=== PATIENT | female | born 1990 | race Two or more races ===

== ENCOUNTER 2020-07-03 20:29 | Inpatient (IN) | payer BC, MEDICAID ==
[~2020-07-03] VITALS: Ht 165.1 cm; Wt 81.2 kg
[~2020-07-03 20:29] MED LIST: CLIN300C8 PO; IBUP800T27 PO
[2020-07-03 21:07] LABS: Eosinophils # (auto) 0.1 10 ^3/uL (0-0.8); Eosinophils % (auto) 0.5 % (0.0-7.0); Mean Corpuscular Hemoglobin 26.5 pg (28.0-32.0); Mean Corpuscular Hgb Conc. 33.5 g/dL (32.0-36.0); Neutrophils # (auto) 11.9 10 ^3/uL (1.6-8.6); Red Cell Distribution Width 12.7 % (11.8-14.3)
[2020-07-03 21:08] LABS: Basophils # (auto) 0.1 10 ^3/uL (0-0.2); Basophils % (auto) 0.4 % (0.0-2.0); Hematocrit 32.3 % (36.0-46.0); Hemoglobin 10.8 g/dL (12.2-16.2); Lymphocytes # (auto) 2.3 10 ^3/uL (0.4-5.4); Lymphocytes % (auto) 15.2 % (10.0-50.0); Mean Corpuscular Volume 79.1 fL (80.0-100.0); Monocytes # (auto) 0.9 10 ^3/uL (0-1.3); Monocytes % (auto) 5.7 % (0.0-12.0); Neutrophils % (auto) 78.2 % (37.0-80.0); Platelet Count (auto) 429 10^3/uL (140-450); Red Blood Cells 4.08 10^6/uL (4.0-5.20); White Blood Cell 15.2 10^3/uL (4.4-10.8)
[2020-07-03 21:25] LABS: Albumin 2.8 g/dL (3.4-5.0); Calcium 9.3 mg/dL (8.5-10.1)
[2020-07-03 21:28] LABS: BUN/Creatinine Ratio 27.3; Bilirubin, Total 0.7 mg/dL (0.2-1.0); Total Protein 7.9 g/dL (6.4-8.2)
[2020-07-03] MEDS ORDERED: cefTRIAXone 1GM/50ML D5W 50 ML IV ONE (23:30)
[2020-07-03] MEDS ORDERED: CLINDAMYCIN 600MG IV 50 ML IV ONE (23:30)
[2020-07-03] MEDS ORDERED: SODIUM CHLORIDE 0.9% 1,000 ML IV ONE (23:30)
[2020-07-04] MEDS ORDERED: HYDROcodone-ACET 5/325MG TAB PO PRN (00:45)
[2020-07-04] MEDS ORDERED: ONDANSETRON HCL 4 MG/2 ML VIAL IV PRN (00:45)
[2020-07-04] MEDS ORDERED: TEMAZEPAM 15 MG CAP PO PRN (00:45)
[2020-07-04] MEDS ORDERED: DEXTROSE (50%) 50ML SYRG IV PRN ×2 (00:45→13:00)
[2020-07-04 04:02] VITALS: BP 118/74
[2020-07-04 05:00] VITALS: BP 118/74
[2020-07-04] MEDS: ACCU-CHEK COMFORT CURVE STRIP VI SCH ×4 (05:36→23:14)
[2020-07-04] MEDS: CLINDAMYCIN 600MG IV 50 ML IV SCH ×3 (05:36→22:06)
[2020-07-04] MEDS: InsuLIN REG 1unit/0.01ml Soln (100units/ml) SC SCH ×4 (05:38→23:14)
[2020-07-04] MEDS: cefTRIAXone 1GM/50ML D5W 50 ML IV SCH (08:33)
[2020-07-04 09:00] VITALS: BP 111/61
[2020-07-04] MEDS ORDERED: FAMOTIDINE 20 MG TAB PO SCH (10:00)
[2020-07-04 13:00] VITALS: BP 127/68
[2020-07-04] MEDS ORDERED: INSULIN LANTUS (GLARGINE) 1 /0.01ml (100units/ml) SC ONE (13:00)
[2020-07-04 17:00] VITALS: BP 115/66
[2020-07-04 22:00] VITALS: BP 127/73
[2020-07-04] MEDS: ACETAMINOPHEN 325 MG TAB PO PRN (22:06)
[2020-07-04] MEDS: INSULIN LANTUS (GLARGINE) 1 /0.01ml (100units/ml) SC SCH (23:13)
[2020-07-05 05:00] VITALS: BP 105/56
[2020-07-05 05:21] LABS: Eosinophils # (auto) 0.1 10 ^3/uL (0-0.8); Monocytes # (auto) 1.2 10 ^3/uL (0-1.3); Neutrophils # (auto) 11.7 10 ^3/uL (1.6-8.6)
[2020-07-05 05:24] LABS: Basophils # (auto) 0.1 10 ^3/uL (0-0.2); Basophils % (auto) 0.4 % (0.0-2.0); Eosinophils % (auto) 0.8 % (0.0-7.0); Hematocrit 27.6 % (36.0-46.0); Hemoglobin 9.3 g/dL (12.2-16.2); Lymphocytes # (auto) 2.6 10 ^3/uL (0.4-5.4); Lymphocytes % (auto) 16.5 % (10.0-50.0); Mean Corpuscular Hemoglobin 26.7 pg (28.0-32.0); Mean Corpuscular Hgb Conc. 33.8 g/dL (32.0-36.0); Monocytes % (auto) 7.8 % (0.0-12.0); Neutrophils % (auto) 74.5 % (37.0-80.0); Platelet Count (auto) 352 10^3/uL (140-450); Red Cell Distribution Width 12.6 % (11.8-14.3); White Blood Cell 15.7 10^3/uL (4.4-10.8)
[2020-07-05] MEDS: ACCU-CHEK COMFORT CURVE STRIP VI SCH ×4 (05:31→23:12)
[2020-07-05] MEDS: CLINDAMYCIN 600MG IV 50 ML IV SCH ×3 (05:31→21:41)
[2020-07-05] MEDS: InsuLIN REG 1unit/0.01ml Soln (100units/ml) SC SCH ×4 (05:32→23:12)
[2020-07-05 06:01] LABS: BUN/Creatinine Ratio 26.9; Calcium 8.3 mg/dL (8.5-10.1); Potassium 3.7 mmol/L (3.5-5.1)
[2020-07-05 09:00] VITALS: BP 98/50
[2020-07-05] MEDS: cefTRIAXone 1GM/50ML D5W 50 ML IV SCH (09:16)
[2020-07-05] MEDS: INSULIN LANTUS (GLARGINE) 1 /0.01ml (100units/ml) SC SCH ×2 (09:49→23:02)
[2020-07-05 12:19] LABS: % Iron Saturation 4.3 % (15-50)
[2020-07-05 13:00] VITALS: BP 92/54
[2020-07-05 17:00] VITALS: BP 99/52
[2020-07-05 22:00] VITALS: BP 100/54
[2020-07-06 05:00] VITALS: BP 113/63
[2020-07-06] MEDS: InsuLIN REG 1unit/0.01ml Soln (100units/ml) SC SCH ×4 (05:41→23:08)
[2020-07-06] MEDS: ACCU-CHEK COMFORT CURVE STRIP VI SCH ×4 (05:45→23:11)
[2020-07-06] MEDS: CLINDAMYCIN 600MG IV 50 ML IV SCH (05:45)
[2020-07-06] MEDS: ACETAMINOPHEN 325 MG TAB PO PRN ×2 (08:02→18:04)
[2020-07-06] MEDS: cefTRIAXone 1GM/50ML D5W 50 ML IV SCH (08:42)
[2020-07-06] MEDS: INSULIN LANTUS (GLARGINE) 1 /0.01ml (100units/ml) SC SCH ×2 (08:42→23:04)
[2020-07-06 09:00] VITALS: BP 105/60
[2020-07-06] MEDS ORDERED: VANCOMYCIN PER PHARMACY 0 MG IV SCH (12:15)
[2020-07-06] MEDS ORDERED: VANCOMYCIN 1GM/250ML 250 ML IV ONE (12:45)
[2020-07-06 13:00] VITALS: BP 105/62
[2020-07-06] MEDS: PIPERACILLIN-TAZOB 3.375GM 100 ML IV SCH ×2 (15:38→22:28)
[2020-07-06 17:00] VITALS: BP 119/66
[2020-07-06 22:00] VITALS: BP 98/52
[2020-07-07] MEDS: VANCOMYCIN 1GM/250ML 250 ML IV SCH ×3 (00:53→20:05)
[2020-07-07] MEDS: ACETAMINOPHEN 325 MG TAB PO PRN ×2 (04:52→14:28)
[2020-07-07 05:00] VITALS: BP_SYST 106; BP_SYST 117; BP_DIAS 56; BP_DIAS 67
[2020-07-07] MEDS: PIPERACILLIN-TAZOB 3.375GM 100 ML IV SCH ×3 (06:22→22:38)
[2020-07-07] MEDS: InsuLIN REG 1unit/0.01ml Soln (100units/ml) SC SCH ×4 (06:24→23:20)
[2020-07-07] MEDS: ACCU-CHEK COMFORT CURVE STRIP VI SCH ×4 (06:27→23:20)
[2020-07-07 08:01] LABS: Eosinophils # (auto) 0.1 10 ^3/uL (0-0.8); Eosinophils % (auto) 0.6 % (0.0-7.0); Hematocrit 26.3 % (36.0-46.0)
[2020-07-07 08:08] LABS: Basophils # (auto) 0 10 ^3/uL (0-0.2); Basophils % (auto) 0.3 % (0.0-2.0); Hemoglobin 8.8 g/dL (12.2-16.2); Lymphocytes # (auto) 1.9 10 ^3/uL (0.4-5.4); Lymphocytes % (auto) 14.4 % (10.0-50.0); Mean Corpuscular Hemoglobin 26.3 pg (28.0-32.0); Mean Corpuscular Hgb Conc. 33.4 g/dL (32.0-36.0); Mean Corpuscular Volume 78.8 fL (80.0-100.0); Monocytes % (auto) 7.9 % (0.0-12.0); Neutrophils % (auto) 76.8 % (37.0-80.0); Platelet Count (auto) 355 10^3/uL (140-450); Red Blood Cells 3.34 10^6/uL (4.0-5.20); Red Cell Distribution Width 12.8 % (11.8-14.3); White Blood Cell 13.1 10^3/uL (4.4-10.8)
[2020-07-07 08:15] LABS: INR 1.13 (0.9-1.15); Partial Thromboplastin Time 29.7 sec (23.0-31.2)
[2020-07-07 08:19] LABS: Calcium 8.2 mg/dL (8.5-10.1); Potassium 3.9 mmol/L (3.5-5.1)
[2020-07-07 08:26] LABS: BUN/Creatinine Ratio 18.5; Bilirubin, Total 0.4 mg/dL (0.2-1.0); Magnesium 2.1 mg/dL (1.6-2.6); Phosphorus 3.8 mg/dL (2.5-4.90); Total Protein 6.6 g/dL (6.4-8.2)
[2020-07-07 08:56] VITALS: BP 101/58
[2020-07-07] MEDS: INSULIN LANTUS (GLARGINE) 1 /0.01ml (100units/ml) SC SCH ×2 (09:34→23:19)
[2020-07-07 13:00] VITALS: BP 142/74
[2020-07-07 17:02] VITALS: BP 90/52
[2020-07-07 21:05] VITALS: BP 107/65
[2020-07-07 21:06] LABS: Urine Bacteria NONE SEEN /hpf (None Seen); Urine Blood 1+ /uL (Negative); Urine Specific Gravity 1.016 (1.001-1.035); Urine WBC 89 /hpf (0 - 5)
[2020-07-08 04:22] VITALS: BP 94/52
[2020-07-08] MEDS: PIPERACILLIN-TAZOB 3.375GM 100 ML IV SCH (05:36)
[2020-07-08] MEDS: InsuLIN REG 1unit/0.01ml Soln (100units/ml) SC SCH ×3 (05:37→18:06)
[2020-07-08] MEDS: ACCU-CHEK COMFORT CURVE STRIP VI SCH ×3 (05:38→17:53)
[2020-07-08] MEDS: VANCOMYCIN 1GM/250ML 250 ML IV SCH (06:06)
[2020-07-08 07:18] LABS: Basophils # (auto) 0.1 10 ^3/uL (0-0.2); Eosinophils # (auto) 0.1 10 ^3/uL (0-0.8); Eosinophils % (auto) 0.5 % (0.0-7.0); Lymphocytes # (auto) 1.7 10 ^3/uL (0.4-5.4)
[2020-07-08 07:19] LABS: Basophils % (auto) 0.4 % (0.0-2.0); Hemoglobin 8.5 g/dL (12.2-16.2); Lymphocytes % (auto) 11.3 % (10.0-50.0); Mean Corpuscular Hgb Conc. 32.8 g/dL (32.0-36.0); Mean Corpuscular Volume 79.1 fL (80.0-100.0); Monocytes # (auto) 1.1 10 ^3/uL (0-1.3); Monocytes % (auto) 6.9 % (0.0-12.0); Neutrophils # (auto) 12.3 10 ^3/uL (1.6-8.6); Neutrophils % (auto) 80.9 % (37.0-80.0); Nucleated Red Blood Cells % 0.2 %; Platelet Count (auto) 401 10^3/uL (140-450); Red Blood Cells 3.29 10^6/uL (4.0-5.20); Red Cell Distribution Width 12.9 % (11.8-14.3); White Blood Cell 15.2 10^3/uL (4.4-10.8)
[2020-07-08 07:30] LABS: INR 1.15 (0.9-1.15); Partial Thromboplastin Time 28.6 sec (23.0-31.2)
[2020-07-08] MEDS ORDERED: LIDOCAINE 1% HCL (LOCAL ANESTH.) INJ 20ML MDV ONE (07:30)
[2020-07-08] MEDS ORDERED: PROPOFOL 10 MG/ML 20 ML IV ONE (07:37)
[2020-07-08] MEDS ORDERED: MIDAZOLAM HCL 1MG/1ML-2 ML VIAL ONE (07:37)
[2020-07-08] MEDS ORDERED: ONDANSETRON HCL 4 MG/2 ML VIAL ONE (07:37)
[2020-07-08] MEDS ORDERED: SODIUM CHLORIDE LOCK 10 ML ONE (07:37)
[2020-07-08] MEDS ORDERED: KETAMINE HCL 10 ML ONE (07:37)
[2020-07-08] MEDS ORDERED: fentaNYL CITRATE 100 MCG/2 ML VL ONE (07:37)
[2020-07-08 07:39] LABS: Bilirubin, Total 0.6 mg/dL (0.2-1.0); Calcium 8.5 mg/dL (8.5-10.1); Magnesium 1.9 mg/dL (1.6-2.6); Phosphorus 4.8 mg/dL (2.5-4.90); Total Protein 6.8 g/dL (6.4-8.2)
[2020-07-08] MEDS ORDERED: ROPIVACAINE 0.5% (5MG/ML) 20ML AMPULE IJ ONE (07:41)
[2020-07-08] MEDS ORDERED: ceFAZolin 1GM VL ONE (07:41)
[2020-07-08] MEDS ORDERED: ceFAZolin 1GM/50ML 100 ML IV ONE (07:50)
[2020-07-08] MEDS ORDERED: HYDROmorphone HCL 2 MG/ML VL IV PRN (08:30)
[2020-07-08] MEDS ORDERED: ACCU-CHEK COMFORT CURVE STRIP VI ONE (08:30)
[2020-07-08] MEDS ORDERED: METOCLOPRAMIDE HCL 5MG/ml INJ 2ml VIAL IV PRN (08:30)
[2020-07-08] MEDS ORDERED: MORPHINE SULFATE 4 MG/ML SYR/VIAL IV PRN (08:30)
[2020-07-08] MEDS ORDERED: NEOMYCIN-BACITRACIN-POLYM 15GM TOP OINT TOP ONE (08:45)
[2020-07-08] MEDS: INSULIN LANTUS (GLARGINE) 1 /0.01ml (100units/ml) SC SCH ×2 (10:36→21:54)
[2020-07-08] MEDS: SODIUM CHLORIDE 0.9% 1,000 ML IV SCH (12:05)
[2020-07-08] MEDS: LINEZOLID 600MG/300ML 300 ML IV SCH (12:50)
[2020-07-08 13:00] VITALS: BP 128/74
[2020-07-08] MEDS ORDERED: LIDOCAINE 1% (LOCAL ANESTH.) PF 5ml SDV ID ONE (16:00)
[2020-07-08 16:54] VITALS: BP 128/66
[2020-07-08 20:00] VITALS: BP 97/54
[2020-07-08] MEDS: SODIUM CHLOR 0.9% PF (SALINE LOCK) 10ML VIAL/SYR IV SCH (21:34)
[2020-07-09] MEDS: ACCU-CHEK COMFORT CURVE STRIP VI SCH ×5 (00:06→23:57)
[2020-07-09] MEDS: LINEZOLID 600MG/300ML 300 ML IV SCH (00:07)
[2020-07-09] MEDS: InsuLIN REG 1unit/0.01ml Soln (100units/ml) SC SCH ×5 (00:07→23:58)
[2020-07-09] MEDS: SODIUM CHLORIDE 0.9% 1,000 ML IV SCH (00:28)
[2020-07-09 05:00] VITALS: BP 110/53
[2020-07-09 06:11] LABS: Basophils % (auto) 0.4 % (0.0-2.0); Eosinophils # (auto) 0.1 10 ^3/uL (0-0.8); Hemoglobin 8.1 g/dL (12.2-16.2); Mean Corpuscular Hemoglobin 26.6 pg (28.0-32.0); Monocytes % (auto) 8.2 % (0.0-12.0); White Blood Cell 11.8 10^3/uL (4.4-10.8)
[2020-07-09 06:13] LABS: Basophils # (auto) 0.1 10 ^3/uL (0-0.2); Eosinophils % (auto) 0.9 % (0.0-7.0); Hematocrit 23.9 % (36.0-46.0); Lymphocytes # (auto) 1.8 10 ^3/uL (0.4-5.4); Lymphocytes % (auto) 15.4 % (10.0-50.0); Mean Corpuscular Hgb Conc. 33.8 g/dL (32.0-36.0); Mean Corpuscular Volume 78.8 fL (80.0-100.0); Neutrophils # (auto) 8.8 10 ^3/uL (1.6-8.6); Neutrophils % (auto) 75.1 % (37.0-80.0); Platelet Count (auto) 395 10^3/uL (140-450); Red Blood Cells 3.02 10^6/uL (4.0-5.20); Red Cell Distribution Width 12.8 % (11.8-14.3)
[2020-07-09 06:32] LABS: BUN/Creatinine Ratio 9.6; Calcium 8.2 mg/dL (8.5-10.1); Potassium 3.8 mmol/L (3.5-5.1)
[2020-07-09 09:00] VITALS: BP 120/73
[2020-07-09] MEDS: SODIUM CHLOR 0.9% PF (SALINE LOCK) 10ML VIAL/SYR IV SCH ×2 (09:41→22:19)
[2020-07-09] MEDS: INSULIN LANTUS (GLARGINE) 1 /0.01ml (100units/ml) SC SCH ×2 (09:55→22:21)
[2020-07-09] MEDS ORDERED: levoFLOXacin 500MG 100 ML IV SCH (10:00)
[2020-07-09] MEDS ORDERED: CEFTRIAXONE SODIUM 2 GM in D5W 5% 50 ML IV ONE (10:45)
[2020-07-09 13:00] VITALS: BP 132/80
[2020-07-09 17:00] VITALS: BP 142/87
[2020-07-09 22:00] VITALS: BP 147/81
[2020-07-10 05:00] VITALS: BP 116/70
[2020-07-10] MEDS: ACCU-CHEK COMFORT CURVE STRIP VI SCH ×3 (05:51→18:00)
[2020-07-10] MEDS: InsuLIN REG 1unit/0.01ml Soln (100units/ml) SC SCH ×3 (05:51→18:00)
[2020-07-10 09:00] VITALS: BP 111/70
[2020-07-10] MEDS ORDERED: CEFTRIAXONE SODIUM 2 GM in D5W 5% 50 ML IV SCH (10:00)
[2020-07-10] MEDS: INSULIN LANTUS (GLARGINE) 1 /0.01ml (100units/ml) SC SCH (12:06)
[2020-07-10] MEDS: SODIUM CHLOR 0.9% PF (SALINE LOCK) 10ML VIAL/SYR IV SCH (12:08)
[2020-07-10 13:00] VITALS: BP 108/69
[2020-07-10 16:30] VITALS: BP 142/86
[2020-07-10] MEDS ORDERED: FER325T PO (16:32)
== END 2020-07-10 18:15 | disposition home health service (06) | DRG 617 ==
LOC: ER 20:35 → TELE 07-04 00:44 → TELE-WESTW 07-04 03:14 → WEST WING 07-08 11:51
PROVIDERS: ADMIT Nurse Practitioner; ATTEND Internal Medicine
PROC: 0Y6Q0Z0 Detachment at Left 1st Toe, Complete, Open Approach (ICD-10-PCS; principal; 2020-07-08 08:10)
DX: E11.69 Type 2 diabetes mellitus with other specified complication (principal); L03.116 Cellulitis of left lower limb; M86.179 Other acute osteomyelitis, unspecified ankle and foot; L97.529 Non-pressure chronic ulcer of other part of left foot with unspecified severity; Z20.822 Contact with and (suspected) exposure to COVID-19; E11.621 Type 2 diabetes mellitus with foot ulcer; D72.829 Elevated white blood cell count, unspecified; E11.65 Type 2 diabetes mellitus with hyperglycemia; F17.210 Nicotine dependence, cigarettes, uncomplicated; D64.9 Anemia, unspecified; L03.032 Cellulitis of left toe; Z79.899 Other long term (current) drug therapy; Z79.4 Long term (current) use of insulin; Z82.49 Family history of ischemic heart disease and other diseases of the circulatory system; Z83.3 Family history of diabetes mellitus; Z89.412 Acquired absence of left great toe
CPT/HCPCS: 36415; 36569; 71045; 73630; 73700; 73718; 80048; 80053; 80202; 81001; 82962; 83036; 83540; 83550; 83605; 83735; 84100; 84443; 84702; 85025; 85610; 85652; 85730; 86141; 86850; 86900; 86901; 87040; 87070; 87075; 87076; 87077; 87186; 87205; 87426; 93926; 96365; 96367; G0378; J0690; J0696; J1815; J1956; J2001; J2250; J2405; J2543; J2704; J3490; J7060

== ENCOUNTER 2021-01-14 11:12 | Inpatient (IN) | payer BC ==
[~2021-01-14] VITALS: Ht 154.9 cm; Wt 85.0 kg
[~2021-01-14 11:12] MED LIST changes: -CLIN300C8 PO; +FER325T PO; -IBUP800T27 PO
[2021-01-14 12:19] LABS: Basophils # (auto) 0 10 ^3/uL (0-0.2); Basophils % (auto) 0.7 % (0.0-2.0); Eosinophils # (auto) 0.1 10 ^3/uL (0-0.8); Eosinophils % (auto) 2.1 % (0.0-7.0); Hematocrit 32.7 % (36.0-46.0); Hemoglobin 11.3 g/dL (12.2-16.2); Lymphocytes # (auto) 2.9 10 ^3/uL (0.4-5.4); Lymphocytes % (auto) 42.9 % (10.0-50.0); Mean Corpuscular Hemoglobin 29.2 pg (28.0-32.0); Mean Corpuscular Hgb Conc. 34.5 g/dL (32.0-36.0); Mean Corpuscular Volume 84.6 fL (80.0-100.0); Monocytes # (auto) 0.3 10 ^3/uL (0-1.3); Neutrophils # (auto) 3.4 10 ^3/uL (1.6-8.6); Neutrophils % (auto) 50.3 % (37.0-80.0); Nucleated Red Blood Cells % 0.1 %; Red Blood Cells 3.86 10^6/uL (4.0-5.20); Red Cell Distribution Width 12.2 % (11.8-14.3); White Blood Cell 6.7 10^3/uL (4.4-10.8)
[2021-01-14 12:30] LABS: Albumin 3.4 g/dL (3.4-5.0); Calcium 8.8 mg/dL (8.5-10.1); Potassium 4.4 mmol/L (3.5-5.1)
[2021-01-14 12:35] LABS: BUN/Creatinine Ratio 31.6; Bilirubin, Total 0.4 mg/dL (0.2-1.0); Total Protein 7.5 g/dL (6.4-8.2)
[2021-01-14] MEDS ORDERED: CLINDAMYCIN 600MG IV 50 ML IV ONE (14:00)
[2021-01-14] MEDS ORDERED: NITROGLYCERIN 0.4 MG SL TAB SL PRN ×2 (14:15→18:00)
[2021-01-14] MEDS ORDERED: MORPHINE SULFATE INJECTION 2 MG/ML SYRG IV PRN ×3 (14:15→18:00)
[2021-01-14] MEDS ORDERED: INSUINJ37 SC (14:21)
[2021-01-14] MEDS ORDERED: METF-372 PO (14:21)
[2021-01-14] MEDS ORDERED: APIX5TAB PO (14:21)
[2021-01-14 14:57] LABS: INR 0.98 (0.9-1.15); Partial Thromboplastin Time 28.8 sec (23.6-33.0)
[2021-01-14] MEDS ORDERED: VANCOMYCIN PER PHARMACY 0 MG IV SCH (18:00)
[2021-01-14] MEDS ORDERED: HYDROcodone-ACET 5/325MG TAB PO PRN (18:00)
[2021-01-14] MEDS ORDERED: ACCU-CHEK COMFORT CURVE STRIP VI SCH (18:00)
[2021-01-14] MEDS ORDERED: ACETAMINOPHEN 325 MG TAB PO PRN (18:00)
[2021-01-14] MEDS ORDERED: LORazepam 0.5 MG TAB PO PRN (18:00)
[2021-01-14] MEDS ORDERED: MEROPENEM 1GM IVPB 100 ML IV ONE (18:00)
[2021-01-14] MEDS ORDERED: InsuLIN REG 1unit/0.01ml Soln (100units/ml) SC SCH (18:00)
[2021-01-14] MEDS ORDERED: METOCLOPRAMIDE HCL 5MG/ml INJ 2ml VIAL IV PRN (18:00)
[2021-01-14] MEDS ORDERED: SODIUM CHLORIDE 0.9% 1,000 ML IV SCH (18:00)
[2021-01-14] MEDS ORDERED: DOCUSATE SOD 100 MG CAP PO PRN (18:00)
[2021-01-14] MEDS ORDERED: ALUM & MAG HYDROX-SIMETH LIQ(MAALOX) 30 ML PO PRN (18:00)
[2021-01-14] MEDS ORDERED: DEXTROSE (50%) 50ML SYRG IV PRN (18:00)
[2021-01-14] MEDS ORDERED: MEROPENEM 1GM IVPB 100 ML IV SCH (18:16)
[2021-01-14 20:27] LABS: Cholesterol 188 mg/dL (< 200); HDL Cholesterol 56 mg/dL (40-59); LDL Cholesterol 112 mg/dL (< 100); Triglycerides 163 mg/dL (< 150)
[2021-01-14] MEDS ORDERED: VANCOMYCIN 1GM/250ML 250 ML IV ONE (21:00)
[2021-01-14] MEDS ORDERED: APIXABAN 5 MG TAB PO SCH (22:00)
[2021-01-15] MEDS ORDERED: VANCOMYCIN PER PHARMACY 0 MG IV SCH (09:30)
[2021-01-15] MEDS ORDERED: NITROGLYCERIN 0.4 MG SL TAB SL PRN (09:30)
[2021-01-15] MEDS ORDERED: MEROPENEM 1GM IVPB 100 ML IV SCH (09:30)
[2021-01-15] MEDS ORDERED: MORPHINE SULFATE INJECTION 2 MG/ML SYRG IV PRN ×2 (09:30→09:45)
[2021-01-15] MEDS ORDERED: HYDROcodone-ACET 5/325MG TAB PO PRN (09:45)
[2021-01-15] MEDS ORDERED: DOCUSATE SOD 100 MG CAP PO PRN (09:45)
[2021-01-15] MEDS ORDERED: ALUM & MAG HYDROX-SIMETH LIQ(MAALOX) 30 ML PO PRN (09:45)
[2021-01-15] MEDS ORDERED: DEXTROSE (50%) 50ML SYRG IV PRN (09:45)
[2021-01-15] MEDS ORDERED: ACETAMINOPHEN 325 MG TAB PO PRN (09:45)
[2021-01-15] MEDS ORDERED: METOCLOPRAMIDE HCL 5MG/ml INJ 2ml VIAL IV PRN (09:45)
[2021-01-15] MEDS ORDERED: SODIUM CHLORIDE 0.9% 1,000 ML IV SCH (09:45)
[2021-01-15] MEDS ORDERED: APIXABAN 5 MG TAB PO SCH (10:00)
[2021-01-15] MEDS: ACCU-CHEK COMFORT CURVE STRIP VI SCH ×2 (12:09→18:00)
[2021-01-15] MEDS: InsuLIN REG 1unit/0.01ml Soln (100units/ml) SC SCH ×2 (12:10→18:00)
[2021-01-15] MEDS ORDERED: ENOXAPARIN SOD 40 MG/0.4 ML SYRINGE SC ONE (13:00)
[2021-01-15 13:03] LABS: Basophils # (auto) 0 10 ^3/uL (0-0.2); Basophils % (auto) 0.4 % (0.0-2.0); Eosinophils # (auto) 0.1 10 ^3/uL (0-0.8); Eosinophils % (auto) 1.2 % (0.0-7.0); Hematocrit 28.7 % (36.0-46.0); Lymphocytes # (auto) 2.3 10 ^3/uL (0.4-5.4); Mean Corpuscular Hemoglobin 28.9 pg (28.0-32.0); Mean Corpuscular Hgb Conc. 34.8 g/dL (32.0-36.0); Mean Corpuscular Volume 83.2 fL (80.0-100.0); Monocytes # (auto) 0.3 10 ^3/uL (0-1.3); Monocytes % (auto) 4.2 % (0.0-12.0); Neutrophils # (auto) 3.7 10 ^3/uL (1.6-8.6); Neutrophils % (auto) 58.2 % (37.0-80.0); Nucleated Red Blood Cells % 0.1 %; Red Blood Cells 3.46 10^6/uL (4.0-5.20); Red Cell Distribution Width 12.3 % (11.8-14.3); White Blood Cell 6.4 10^3/uL (4.4-10.8)
[2021-01-15 13:18] LABS: INR 1.01 (0.9-1.15); Partial Thromboplastin Time 24.9 sec (23.6-33.0)
[2021-01-15 13:21] LABS: Calcium 8.7 mg/dL (8.5-10.1); Magnesium 2.7 mg/dL (1.6-2.6); Potassium 4.2 mmol/L (3.5-5.1); Uric Acid 5.4 mg/dL (2.6-6.0)
[2021-01-15 13:26] LABS: BUN/Creatinine Ratio 34.8; Bilirubin, Total 0.4 mg/dL (0.2-1.0); Phosphorus 4.1 mg/dL (2.5-4.90); Total Protein 6.7 g/dL (6.4-8.2)
[2021-01-15] MEDS ORDERED: VANCOMYCIN 1GM/250ML 250 ML IV SCH (14:00)
[2021-01-15 14:42] VITALS: BP 113/69
[2021-01-15 17:00] VITALS: BP 116/69
[2021-01-15 20:00] VITALS: BP 102/61
[2021-01-15 21:35] LABS: Urine Bacteria NONE SEEN /hpf (None Seen); Urine Blood Negative /uL (Negative); Urine Specific Gravity 1.014 (1.001-1.035); Urine WBC 2 /hpf (0 - 5)
[2021-01-15 21:42] LABS: Amphetamine Screen, Urine NEGATIVE (NEGATIVE); Barbiturate Scree,Urine NEGATIVE (NEGATIVE); Benzodiazephine Screen, Urine NEGATIVE (NEGATIVE); Cannabinoid Screen, Urine NEGATIVE (NEGATIVE); Cocaine Screen, Urine NEGATIVE (NEGATIVE); Opiate Scree,Urine NEGATIVE (NEGATIVE); Phencyclidine Screen, Urine NEGATIVE (NEGATIVE)
[2021-01-15 22:00] VITALS: BP_SYST 102; BP_SYST 162; BP_DIAS 61; BP_DIAS 78
[2021-01-15] MEDS: VANCOMYCIN 1GM/250ML 250 ML IV SCH (22:13)
[2021-01-16] MEDS: INSULIN LANTUS (GLARGINE) 1 /0.01ml (100units/ml) SC SCH ×3 (00:04→23:22)
[2021-01-16] MEDS: InsuLIN REG 1unit/0.01ml Soln (100units/ml) SC SCH ×5 (00:05→23:23)
[2021-01-16] MEDS: ACCU-CHEK COMFORT CURVE STRIP VI SCH ×5 (00:06→23:23)
[2021-01-16] MEDS ORDERED: diphenhdrAMINE HCL 25 MG CAP PO ONE (00:45)
[2021-01-16 05:00] VITALS: BP 108/66
[2021-01-16] MEDS: VANCOMYCIN 1GM/250ML 250 ML IV SCH ×2 (08:26→18:12)
[2021-01-16] MEDS: CEFTRIAXONE SODIUM 2 GM in D5W 5% 50 ML IV SCH (09:39)
[2021-01-16] MEDS ORDERED: ceFAZolin 1GM VL ONE (10:02)
[2021-01-16] MEDS ORDERED: fentaNYL CITRATE 100 MCG/2 ML VL ONE (10:14)
[2021-01-16] MEDS ORDERED: PROPOFOL 10 MG/ML 20 ML IV ONE (10:14)
[2021-01-16] MEDS ORDERED: MIDAZOLAM HCL 2MG/2ML 2ml VIAL (1mg/ml) ONE (10:14)
[2021-01-16] MEDS ORDERED: ONDANSETRON HCL 4 MG/2 ML VIAL ONE (10:14)
[2021-01-16] MEDS ORDERED: ceFAZolin 1GM/50ML 50 ML IV ONE (10:28)
[2021-01-16] MEDS: CHOLECALCIFEROL (VITD3) 2,000 UNIT CAP/TAB PO SCH (12:42)
[2021-01-16] MEDS: ENOXAPARIN SOD 40 MG/0.4 ML SYRINGE SC SCH (12:43)
[2021-01-16] MEDS ORDERED: GENTAMICIN SULFATE 80 MG in D5W 5% 100 ML IV ONE (12:45)
[2021-01-16 16:32] LABS: Free T3 2.17 pg/mL (2.3-4.2); Free T4 (Free Thyroxine) 1.07 ng/dL (0.89-1.76)
[2021-01-16 20:00] VITALS: BP 137/77
[2021-01-16 22:00] VITALS: BP 137/77
[2021-01-17] MEDS: VANCOMYCIN 1GM/250ML 250 ML IV SCH ×2 (04:00→12:09)
[2021-01-17 05:00] VITALS: BP 127/68
[2021-01-17] MEDS: InsuLIN REG 1unit/0.01ml Soln (100units/ml) SC SCH ×4 (06:00→23:42)
[2021-01-17] MEDS: ACCU-CHEK COMFORT CURVE STRIP VI SCH ×4 (06:38→23:42)
[2021-01-17 08:26] VITALS: BP 126/74
[2021-01-17] MEDS: CEFTRIAXONE SODIUM 2 GM in D5W 5% 50 ML IV SCH (09:24)
[2021-01-17] MEDS: CHOLECALCIFEROL (VITD3) 2,000 UNIT CAP/TAB PO SCH (09:24)
[2021-01-17] MEDS: ENOXAPARIN SOD 40 MG/0.4 ML SYRINGE SC SCH (09:24)
[2021-01-17] MEDS: INSULIN LANTUS (GLARGINE) 1 /0.01ml (100units/ml) SC SCH ×2 (10:00→23:43)
[2021-01-17 12:30] VITALS: BP 138/82
[2021-01-17 17:07] VITALS: BP 111/68
[2021-01-17 22:11] VITALS: BP 114/71
[2021-01-18] MEDS: VANCOMYCIN 1GM/250ML 250 ML IV SCH ×2 (01:13→18:03)
[2021-01-18 05:22] VITALS: BP 102/62
[2021-01-18] MEDS: InsuLIN REG 1unit/0.01ml Soln (100units/ml) SC SCH ×3 (06:00→18:00)
[2021-01-18] MEDS: LEVOTHYROXINE SODIUM 25 MCG TAB PO SCH (06:13)
[2021-01-18] MEDS: ACCU-CHEK COMFORT CURVE STRIP VI SCH ×3 (06:13→18:03)
[2021-01-18 08:30] VITALS: BP 100/56
[2021-01-18] MEDS: ENOXAPARIN SOD 40 MG/0.4 ML SYRINGE SC SCH (09:32)
[2021-01-18] MEDS: CHOLECALCIFEROL (VITD3) 2,000 UNIT CAP/TAB PO SCH (09:32)
[2021-01-18] MEDS: CEFTRIAXONE SODIUM 2 GM in D5W 5% 50 ML IV SCH (09:32)
[2021-01-18] MEDS: INSULIN LANTUS (GLARGINE) 1 /0.01ml (100units/ml) SC SCH ×2 (09:38→22:15)
[2021-01-18] MEDS ORDERED: LIDOCAINE 1% (LOCAL ANESTH.) PF 5ml SDV ID ONE (12:30)
[2021-01-18 12:52] VITALS: BP 163/102
[2021-01-18 16:59] VITALS: BP 118/76
[2021-01-18 20:00] VITALS: BP 124/69
[2021-01-18 21:41] VITALS: BP 124/69
[2021-01-18] MEDS: SODIUM CHLOR 0.9% PF (SALINE LOCK) 10ML VIAL/SYR IV SCH (22:03)
[2021-01-19] MEDS: ACCU-CHEK COMFORT CURVE STRIP VI SCH ×4 (00:09→17:12)
[2021-01-19] MEDS: InsuLIN REG 1unit/0.01ml Soln (100units/ml) SC SCH ×4 (00:12→17:12)
[2021-01-19 05:00] VITALS: BP 92/48
[2021-01-19] MEDS: VANCOMYCIN 1GM/250ML 250 ML IV SCH ×2 (06:00→12:43)
[2021-01-19] MEDS: LEVOTHYROXINE SODIUM 25 MCG TAB PO SCH (06:30)
[2021-01-19 09:00] VITALS: BP 119/75
[2021-01-19] MEDS: SODIUM CHLOR 0.9% PF (SALINE LOCK) 10ML VIAL/SYR IV SCH ×2 (10:42→22:39)
[2021-01-19] MEDS: CHOLECALCIFEROL (VITD3) 2,000 UNIT CAP/TAB PO SCH (10:42)
[2021-01-19] MEDS: CEFTRIAXONE SODIUM 2 GM in D5W 5% 50 ML IV SCH (10:42)
[2021-01-19] MEDS: ENOXAPARIN SOD 40 MG/0.4 ML SYRINGE SC SCH (10:43)
[2021-01-19] MEDS: INSULIN LANTUS (GLARGINE) 1 /0.01ml (100units/ml) SC SCH ×2 (11:44→22:52)
[2021-01-19 13:00] VITALS: BP 137/82
[2021-01-19 17:00] VITALS: BP 125/70
[2021-01-19 21:23] VITALS: BP 104/66
[2021-01-20] MEDS: ACCU-CHEK COMFORT CURVE STRIP VI SCH ×5 (00:19→23:10)
[2021-01-20] MEDS: InsuLIN REG 1unit/0.01ml Soln (100units/ml) SC SCH ×5 (00:20→23:12)
[2021-01-20 04:59] VITALS: BP 96/53
[2021-01-20] MEDS: LEVOTHYROXINE SODIUM 25 MCG TAB PO SCH (06:40)
[2021-01-20 08:30] VITALS: BP 125/75
[2021-01-20] MEDS: VANCOMYCIN 1GM/250ML 250 ML IV SCH (08:33)
[2021-01-20 09:00] VITALS: BP 125/75
[2021-01-20] MEDS ORDERED: LEV25T PO (09:22)
[2021-01-20] MEDS ORDERED: CHOL1CAP47 PO (09:22)
[2021-01-20] MEDS ORDERED: CEFTRIAXONE SODIUM 1 GM in D5W 5% 50 ML IV SCH (10:00)
[2021-01-20] MEDS: CHOLECALCIFEROL (VITD3) 2,000 UNIT CAP/TAB PO SCH (10:31)
[2021-01-20] MEDS: INSULIN LANTUS (GLARGINE) 1 /0.01ml (100units/ml) SC SCH ×2 (10:31→23:12)
[2021-01-20] MEDS: ENOXAPARIN SOD 40 MG/0.4 ML SYRINGE SC SCH (10:31)
[2021-01-20] MEDS: SODIUM CHLOR 0.9% PF (SALINE LOCK) 10ML VIAL/SYR IV SCH ×2 (10:31→23:09)
[2021-01-20] MEDS: CEFTRIAXONE SODIUM 2 GM in D5W 5% 50 ML IV SCH (12:42)
[2021-01-20 13:00] VITALS: BP 102/75
[2021-01-20 17:00] VITALS: BP 100/56
[2021-01-21 05:30] VITALS: BP 97/47
[2021-01-21] MEDS: InsuLIN REG 1unit/0.01ml Soln (100units/ml) SC SCH ×3 (06:00→19:00)
[2021-01-21] MEDS: ACCU-CHEK COMFORT CURVE STRIP VI SCH ×3 (06:24→17:23)
[2021-01-21] MEDS: LEVOTHYROXINE SODIUM 25 MCG TAB PO SCH (06:25)
[2021-01-21 08:30] VITALS: BP 123/78
[2021-01-21] MEDS: CHOLECALCIFEROL (VITD3) 2,000 UNIT CAP/TAB PO SCH (09:11)
[2021-01-21] MEDS: SODIUM CHLOR 0.9% PF (SALINE LOCK) 10ML VIAL/SYR IV SCH (09:11)
[2021-01-21] MEDS: ENOXAPARIN SOD 40 MG/0.4 ML SYRINGE SC SCH (09:11)
[2021-01-21] MEDS: INSULIN LANTUS (GLARGINE) 1 /0.01ml (100units/ml) SC SCH (09:12)
[2021-01-21] MEDS: CEFTRIAXONE SODIUM 2 GM in D5W 5% 50 ML IV SCH (13:31)
[2021-01-21 17:24] VITALS: BP 106/67
[2021-01-21 22:00] VITALS: BP 135/75
[2021-01-22] MEDS: SODIUM CHLOR 0.9% PF (SALINE LOCK) 10ML VIAL/SYR IV SCH ×3 (00:15→21:43)
[2021-01-22] MEDS: INSULIN LANTUS (GLARGINE) 1 /0.01ml (100units/ml) SC SCH ×3 (00:16→23:00)
[2021-01-22] MEDS: ACCU-CHEK COMFORT CURVE STRIP VI SCH ×5 (00:21→23:52)
[2021-01-22] MEDS: LORazepam 0.5 MG TAB PO PRN (00:21)
[2021-01-22 05:00] VITALS: BP 96/47
[2021-01-22] MEDS: InsuLIN REG 1unit/0.01ml Soln (100units/ml) SC SCH ×5 (06:00→23:52)
[2021-01-22] MEDS: LEVOTHYROXINE SODIUM 25 MCG TAB PO SCH (06:52)
[2021-01-22 08:30] VITALS: BP 121/74
[2021-01-22 08:40] VITALS: BP 121/74
[2021-01-22] MEDS: CHOLECALCIFEROL (VITD3) 2,000 UNIT CAP/TAB PO SCH (09:22)
[2021-01-22] MEDS: CEFTRIAXONE SODIUM 2 GM in D5W 5% 50 ML IV SCH (09:22)
[2021-01-22] MEDS: ENOXAPARIN SOD 40 MG/0.4 ML SYRINGE SC SCH (09:23)
[2021-01-22 13:00] VITALS: BP 135/77
[2021-01-22 17:00] VITALS: BP 115/77
[2021-01-22 22:00] VITALS: BP 108/69
[2021-01-23] MEDS: LEVOTHYROXINE SODIUM 25 MCG TAB PO SCH (05:54)
[2021-01-23] MEDS: InsuLIN REG 1unit/0.01ml Soln (100units/ml) SC SCH ×4 (05:54→23:16)
[2021-01-23] MEDS: ACCU-CHEK COMFORT CURVE STRIP VI SCH ×4 (05:54→23:26)
[2021-01-23 06:00] VITALS: BP 100/57
[2021-01-23] MEDS: CHOLECALCIFEROL (VITD3) 2,000 UNIT CAP/TAB PO SCH (10:32)
[2021-01-23] MEDS: ENOXAPARIN SOD 40 MG/0.4 ML SYRINGE SC SCH (10:32)
[2021-01-23] MEDS: SODIUM CHLOR 0.9% PF (SALINE LOCK) 10ML VIAL/SYR IV SCH ×2 (10:33→23:19)
[2021-01-23] MEDS: CEFTRIAXONE SODIUM 2 GM in D5W 5% 50 ML IV SCH (10:56)
[2021-01-23] MEDS: INSULIN LANTUS (GLARGINE) 1 /0.01ml (100units/ml) SC SCH ×2 (10:56→23:13)
[2021-01-23 12:50] VITALS: BP 127/71
[2021-01-23 22:28] VITALS: BP 130/81
[2021-01-23] MEDS: LORazepam 0.5 MG TAB PO PRN (23:18)
[2021-01-24 05:00] VITALS: BP 98/69
[2021-01-24] MEDS: ACCU-CHEK COMFORT CURVE STRIP VI SCH ×2 (05:49→12:30)
[2021-01-24] MEDS: InsuLIN REG 1unit/0.01ml Soln (100units/ml) SC SCH ×2 (05:49→12:00)
[2021-01-24] MEDS: LEVOTHYROXINE SODIUM 25 MCG TAB PO SCH (06:41)
[2021-01-24 09:00] VITALS: BP 91/51
[2021-01-24] MEDS ORDERED: INSULIN LANTUS (GLARGINE) 1 /0.01ml (100units/ml) SC SCH (10:00)
[2021-01-24] MEDS: SODIUM CHLOR 0.9% PF (SALINE LOCK) 10ML VIAL/SYR IV SCH (10:19)
[2021-01-24] MEDS: CHOLECALCIFEROL (VITD3) 2,000 UNIT CAP/TAB PO SCH (10:19)
[2021-01-24] MEDS: CEFTRIAXONE SODIUM 2 GM in D5W 5% 50 ML IV SCH (10:25)
[2021-01-24] MEDS: ENOXAPARIN SOD 40 MG/0.4 ML SYRINGE SC SCH (10:25)
[2021-01-24 17:00] VITALS: BP 127/75
== END 2021-01-24 17:19 | disposition home health service (06) | DRG 629 ==
LOC: ER 11:12 → OVERFLOW 14:02 → UNDODISIN 23:00 → WEST WING 01-15 13:37
PROVIDERS: ADMIT Hospitalist; ATTEND Internal Medicine
PROC: 0QBP0ZZ Excision of Left Metatarsal, Open Approach (ICD-10-PCS; principal; 2021-01-16 10:35)
PROC: 02HV33Z Insertion of Infusion Device into Superior Vena Cava, Percutaneous Approach (ICD-10-PCS; 2021-01-18)
PROC: B548ZZA Ultrasonography of Superior Vena Cava, Guidance (ICD-10-PCS; 2021-01-18)
DX: E11.69 Type 2 diabetes mellitus with other specified complication (principal); M86.172 Other acute osteomyelitis, left ankle and foot; L97.429 Non-pressure chronic ulcer of left heel and midfoot with unspecified severity; L03.116 Cellulitis of left lower limb; I82.621 Acute embolism and thrombosis of deep veins of right upper extremity; E66.9 Obesity, unspecified; E11.621 Type 2 diabetes mellitus with foot ulcer; Z20.822 Contact with and (suspected) exposure to COVID-19; E78.5 Hyperlipidemia, unspecified; E03.9 Hypothyroidism, unspecified; R70.0 Elevated erythrocyte sedimentation rate; D64.9 Anemia, unspecified; E55.9 Vitamin D deficiency, unspecified; E11.40 Type 2 diabetes mellitus with diabetic neuropathy, unspecified; E11.21 Type 2 diabetes mellitus with diabetic nephropathy; Z79.4 Long term (current) use of insulin; Z68.32 Body mass index [BMI] 32.0-32.9, adult; Z79.01 Long term (current) use of anticoagulants; Z82.49 Family history of ischemic heart disease and other diseases of the circulatory system; Z83.3 Family history of diabetes mellitus; Z88.0 Allergy status to penicillin; Z89.412 Acquired absence of left great toe; Z91.14 Patient's other noncompliance with medication regimen
CPT/HCPCS: 36415; 36569; 71045; 73700; 73718; 80053; 80061; 80202; 80307; 81001; 81025; 82306; 82565; 82962; 83036; 83735; 83880; 84100; 84439; 84443; 84481; 84484; 84550; 85025; 85379; 85610; 85652; 85730; 87040; 87070; 87075; 87086; 87205; 87426; G0378; J0690; J0696; J1815; J2185; J2250; J2405; J2704; J7060

== ENCOUNTER 2021-02-10 17:48 | Inpatient (IN) | payer BC ==
[~2021-02-10] VITALS: Ht 162.6 cm; Wt 81.9 kg
[~2021-02-10 17:48] MED LIST changes: +CHOL1CAP47 PO; -FER325T PO; +INSLANTI SC; +INSUINJ37 SC; +LEV25T PO; +METF-370 PO; +METF-372 PO
[2021-02-10] MEDS ORDERED: SODIUM CHLORIDE 0.9% 500 ML IV ONE (19:30)
[2021-02-10] MEDS ORDERED: ENOXAPARIN SOD 100 MG/1 ML SYRINGE SC ONE (20:15)
[2021-02-10 21:02] LABS: Basophils # (auto) 0 10 ^3/uL (0-0.2); Basophils % (auto) 0.5 % (0.0-2.0); Eosinophils # (auto) 0.4 10 ^3/uL (0-0.8); Eosinophils % (auto) 7.1 % (0.0-7.0); Hematocrit 29.6 % (36.0-46.0); Hemoglobin 10.1 g/dL (12.2-16.2); Lymphocytes # (auto) 1.2 10 ^3/uL (0.4-5.4); Lymphocytes % (auto) 20.2 % (10.0-50.0); Mean Corpuscular Volume 82.4 fL (80.0-100.0); Monocytes # (auto) 0.4 10 ^3/uL (0-1.3); Monocytes % (auto) 6.6 % (0.0-12.0); Neutrophils % (auto) 65.6 % (37.0-80.0); Red Blood Cells 3.59 10^6/uL (4.0-5.20); Red Cell Distribution Width 12.5 % (11.8-14.3); White Blood Cell 6.1 10^3/uL (4.4-10.8)
[2021-02-10] MEDS ORDERED: ENOXAPARIN SOD 40 MG/0.4 ML SYRINGE SC ONE (21:06)
[2021-02-10 21:19] LABS: Albumin 3.3 g/dL (3.4-5.0); Calcium 8.8 mg/dL (8.5-10.1); Potassium 4.5 mmol/L (3.5-5.1)
[2021-02-10 21:23] LABS: BUN/Creatinine Ratio 34.1; Bilirubin, Total 0.4 mg/dL (0.2-1.0); Total Protein 6.9 g/dL (6.4-8.2)
[2021-02-10] MEDS ORDERED: TEMAZEPAM 15 MG CAP PO PRN (22:15)
[2021-02-10] MEDS ORDERED: levoFLOXacin 500MG 100 ML IV ONE (22:15)
[2021-02-10] MEDS ORDERED: HYDROcodone-ACET 5/325MG TAB PO PRN (22:15)
[2021-02-10] MEDS ORDERED: ACETAMINOPHEN 325 MG TAB PO PRN (22:15)
[2021-02-10] MEDS ORDERED: ONDANSETRON HCL 4 MG/2 ML VIAL IV PRN (22:15)
[2021-02-10] MEDS ORDERED: DEXTROSE (50%) 50ML SYRG IV PRN (22:15)
[2021-02-10] MEDS ORDERED: ENOXAPARIN SOD 80 MG/0.8ML SYRINGE SC SCH (22:30)
[2021-02-10 23:42] LABS: INR 0.99 (0.9-1.15); Partial Thromboplastin Time 27.1 sec (23.6-33.0)
[2021-02-11] MEDS ORDERED: diphenhdrAMINE HCL 25 MG CAP PO ONE (02:00)
[2021-02-11] MEDS: CLINDAMYCIN 600MG IV 50 ML IV SCH ×3 (05:30→21:45)
[2021-02-11] MEDS: LEVOTHYROXINE SODIUM 25 MCG TAB PO SCH (05:41)
[2021-02-11] MEDS: ACCU-CHEK COMFORT CURVE STRIP VI SCH ×4 (05:51→22:28)
[2021-02-11] MEDS: InsuLIN REG 1unit/0.01ml Soln (100units/ml) SC SCH ×4 (05:51→22:00)
[2021-02-11 07:01] LABS: Basophils # (auto) 0 10 ^3/uL (0-0.2); Basophils % (auto) 0.6 % (0.0-2.0); Eosinophils # (auto) 0.4 10 ^3/uL (0-0.8); Eosinophils % (auto) 7.6 % (0.0-7.0); Hematocrit 26.9 % (36.0-46.0); Hemoglobin 9.4 g/dL (12.2-16.2); Lymphocytes # (auto) 1.7 10 ^3/uL (0.4-5.4); Lymphocytes % (auto) 31.2 % (10.0-50.0); Mean Corpuscular Hemoglobin 28.7 pg (28.0-32.0); Mean Corpuscular Hgb Conc. 34.7 g/dL (32.0-36.0); Mean Corpuscular Volume 82.6 fL (80.0-100.0); Monocytes # (auto) 0.5 10 ^3/uL (0-1.3); Monocytes % (auto) 10.2 % (0.0-12.0); Neutrophils # (auto) 2.7 10 ^3/uL (1.6-8.6); Neutrophils % (auto) 50.4 % (37.0-80.0); Nucleated Red Blood Cells % 0.1 %; Red Blood Cells 3.26 10^6/uL (4.0-5.20); Red Cell Distribution Width 12.1 % (11.8-14.3); White Blood Cell 5.4 10^3/uL (4.4-10.8)
[2021-02-11] MEDS: ENOXAPARIN SOD 80 MG/0.8ML SYRINGE SC SCH ×2 (10:37→21:45)
[2021-02-11] MEDS: levoFLOXacin 500MG 100 ML IV SCH (10:37)
[2021-02-11] MEDS: PANTOPRAZOLE 40 MG TAB PO SCH (10:37)
[2021-02-11 21:30] VITALS: BP 129/83
[2021-02-11] MEDS: INSULIN LANTUS (GLARGINE) 1 /0.01ml (100units/ml) SC SCH (22:32)
[2021-02-12 05:00] VITALS: BP 114/71
[2021-02-12] MEDS: CLINDAMYCIN 600MG IV 50 ML IV SCH ×3 (05:33→22:52)
[2021-02-12] MEDS: InsuLIN REG 1unit/0.01ml Soln (100units/ml) SC SCH ×4 (06:23→23:01)
[2021-02-12] MEDS: ACCU-CHEK COMFORT CURVE STRIP VI SCH ×4 (06:23→22:00)
[2021-02-12] MEDS: LEVOTHYROXINE SODIUM 25 MCG TAB PO SCH (06:24)
[2021-02-12 09:00] VITALS: BP 131/81
[2021-02-12] MEDS: PANTOPRAZOLE 40 MG TAB PO SCH (10:50)
[2021-02-12] MEDS: ENOXAPARIN SOD 80 MG/0.8ML SYRINGE SC SCH ×2 (10:50→22:52)
[2021-02-12] MEDS: levoFLOXacin 500MG 100 ML IV SCH (10:50)
[2021-02-12 13:00] VITALS: BP 133/80
[2021-02-12] MEDS ORDERED: CHOLECALCIFEROL (VITD3) 2,000 UNIT CAP/TAB PO ONE (14:45)
[2021-02-12 17:00] VITALS: BP 125/83
[2021-02-12 22:00] VITALS: BP 145/86
[2021-02-12] MEDS: INSULIN LANTUS (GLARGINE) 1 /0.01ml (100units/ml) SC SCH (22:53)
[2021-02-13 05:00] VITALS: BP 110/56
[2021-02-13] MEDS: InsuLIN REG 1unit/0.01ml Soln (100units/ml) SC SCH ×4 (06:24→22:43)
[2021-02-13] MEDS: LEVOTHYROXINE SODIUM 25 MCG TAB PO SCH (06:42)
[2021-02-13] MEDS: ACCU-CHEK COMFORT CURVE STRIP VI SCH ×4 (06:42→22:24)
[2021-02-13] MEDS: CLINDAMYCIN 600MG IV 50 ML IV SCH (06:42)
[2021-02-13 09:00] VITALS: BP 129/68
[2021-02-13] MEDS: PANTOPRAZOLE 40 MG TAB PO SCH (09:37)
[2021-02-13] MEDS: CHOLECALCIFEROL (VITD3) 2,000 UNIT CAP/TAB PO SCH (09:37)
[2021-02-13] MEDS: ENOXAPARIN SOD 80 MG/0.8ML SYRINGE SC SCH (09:37)
[2021-02-13] MEDS: levoFLOXacin 500MG 100 ML IV SCH (09:37)
[2021-02-13] MEDS ORDERED: levoFLOXacin 500 MG TAB PO ONE (10:30)
[2021-02-13 13:00] VITALS: BP 170/90
[2021-02-13] MEDS ORDERED: FLUTICASONE PROP NASAL SPR 0.05 % (50MCG) 16GM EACHNOSTRI ONE (13:45)
[2021-02-13] MEDS ORDERED: CLINDAMYCIN HCL 150 MG CAP PO SCH (14:00)
[2021-02-13 17:00] VITALS: BP 173/91
[2021-02-13 18:15] VITALS: BP 159/82
[2021-02-13 19:39] LABS: Basophils # (auto) 0 10 ^3/uL (0-0.2); Basophils % (auto) 0.9 % (0.0-2.0); Eosinophils # (auto) 0.3 10 ^3/uL (0-0.8); Eosinophils % (auto) 7.2 % (0.0-7.0); Hematocrit 27.6 % (36.0-46.0); Hemoglobin 9.5 g/dL (12.2-16.2); Lymphocytes # (auto) 1.6 10 ^3/uL (0.4-5.4); Lymphocytes % (auto) 37.5 % (10.0-50.0); Mean Corpuscular Hemoglobin 28.3 pg (28.0-32.0); Mean Corpuscular Hgb Conc. 34.4 g/dL (32.0-36.0); Mean Corpuscular Volume 82.2 fL (80.0-100.0); Monocytes # (auto) 0.2 10 ^3/uL (0-1.3); Monocytes % (auto) 5.5 % (0.0-12.0); Neutrophils # (auto) 2.2 10 ^3/uL (1.6-8.6); Neutrophils % (auto) 48.9 % (37.0-80.0); Nucleated Red Blood Cells % 0.1 %; Red Blood Cells 3.36 10^6/uL (4.0-5.20); Red Cell Distribution Width 12.3 % (11.8-14.3); White Blood Cell 4.4 10^3/uL (4.4-10.8)
[2021-02-13 19:58] LABS: BUN/Creatinine Ratio 25.9; Calcium 8.3 mg/dL (8.5-10.1); Potassium 4.6 mmol/L (3.5-5.1)
[2021-02-13 22:00] VITALS: BP 123/77
[2021-02-13] MEDS: FLUTICASONE PROP NASAL SPR 0.05 % (50MCG) 16GM EACHNOSTRI SCH (22:15)
[2021-02-13] MEDS: APIXABAN 5 MG TAB PO SCH (22:16)
[2021-02-13] MEDS: LINEZOLID 600MG TABLET PO SCH (22:18)
[2021-02-13] MEDS: INSULIN LANTUS (GLARGINE) 1 /0.01ml (100units/ml) SC SCH (22:43)
[2021-02-14] MEDS: InsuLIN REG 1unit/0.01ml Soln (100units/ml) SC SCH ×2 (06:25→11:30)
[2021-02-14] MEDS: ACCU-CHEK COMFORT CURVE STRIP VI SCH ×2 (06:26→12:21)
[2021-02-14] MEDS: LEVOTHYROXINE SODIUM 25 MCG TAB PO SCH (06:33)
[2021-02-14] MEDS ORDERED: levoFLOXacin 500 MG TAB PO SCH (10:00)
[2021-02-14] MEDS ORDERED: ASCORBIC ACID 1,000 MG TAB PO SCH (10:00)
[2021-02-14] MEDS ORDERED: IVERMECTIN 3 MG TAB PO SCH (10:00)
[2021-02-14] MEDS: LINEZOLID 600MG TABLET PO SCH (10:22)
[2021-02-14] MEDS: PANTOPRAZOLE 40 MG TAB PO SCH (10:23)
[2021-02-14] MEDS: FLUTICASONE PROP NASAL SPR 0.05 % (50MCG) 16GM EACHNOSTRI SCH (10:23)
[2021-02-14] MEDS: APIXABAN 5 MG TAB PO SCH (10:23)
[2021-02-14] MEDS: CHOLECALCIFEROL (VITD3) 2,000 UNIT CAP/TAB PO SCH (10:23)
[2021-02-14 12:41] VITALS: BP 126/86
[2021-02-14 13:30] VITALS: BP 126/86
[2021-02-20] MEDS ORDERED: APIXABAN 5 MG TAB PO SCH (22:00)
== END 2021-02-14 16:30 | disposition home or self-care (01) | DRG 299 ==
LOC: ER 17:48 → OVERFLOW 22:09 → EDUNIT# 22:09 → WEST WING 02-11 21:30
PROVIDERS: ADMIT Nurse Practitioner; ATTEND Internal Medicine
DX: I82.B12 Acute embolism and thrombosis of left subclavian vein (principal); U07.1 COVID-19; E43 Unspecified severe protein-calorie malnutrition; L03.114 Cellulitis of left upper limb; L97.429 Non-pressure chronic ulcer of left heel and midfoot with unspecified severity; D68.59 Other primary thrombophilia; M86.8X7 Other osteomyelitis, ankle and foot; E11.610 Type 2 diabetes mellitus with diabetic neuropathic arthropathy; I82.A11 Acute embolism and thrombosis of right axillary vein; E11.69 Type 2 diabetes mellitus with other specified complication; Z68.30 Body mass index [BMI] 30.0-30.9, adult; E03.9 Hypothyroidism, unspecified; E11.42 Type 2 diabetes mellitus with diabetic polyneuropathy; E78.5 Hyperlipidemia, unspecified; I82.A12 Acute embolism and thrombosis of left axillary vein; E11.51 Type 2 diabetes mellitus with diabetic peripheral angiopathy without gangrene; E11.621 Type 2 diabetes mellitus with foot ulcer; E55.9 Vitamin D deficiency, unspecified; Z79.4 Long term (current) use of insulin; Z82.49 Family history of ischemic heart disease and other diseases of the circulatory system; Z83.3 Family history of diabetes mellitus; Z89.412 Acquired absence of left great toe; Z88.1 Allergy status to other antibiotic agents; Z86.718 Personal history of other venous thrombosis and embolism
CPT/HCPCS: 36415; 71046; 73700; 80048; 80053; 82728; 82962; 85025; 85610; 85652; 85730; 87070; 87426; 93971; 96361; 96365; 96366; 96367; 96372; G0378; J1815; J1956; J3490

== ENCOUNTER → 2021-02-18 | Outpatient (CLI) | payer BC ==
[~2021-02-18] MED LIST changes: -METF-370 PO; -METF-372 PO
[2021-02-18 16:36] LABS: Basophils # (auto) 0.1 10 ^3/uL (0-0.2); Basophils % (auto) 1.4 % (0.0-2.0); Eosinophils # (auto) 0.2 10 ^3/uL (0-0.8); Eosinophils % (auto) 3.5 % (0.0-7.0); Hematocrit 31.4 % (36.0-46.0); Hemoglobin 10.7 g/dL (12.2-16.2); Lymphocytes # (auto) 2.2 10 ^3/uL (0.4-5.4); Mean Corpuscular Hemoglobin 27.9 pg (28.0-32.0); Mean Corpuscular Hgb Conc. 34.1 g/dL (32.0-36.0); Mean Corpuscular Volume 81.6 fL (80.0-100.0); Monocytes # (auto) 0.3 10 ^3/uL (0-1.3); Monocytes % (auto) 3.7 % (0.0-12.0); Neutrophils # (auto) 4.2 10 ^3/uL (1.6-8.6); Neutrophils % (auto) 60.4 % (37.0-80.0); Red Blood Cells 3.85 10^6/uL (4.0-5.20); Red Cell Distribution Width 12.7 % (11.8-14.3)
== END | disposition home or self-care (01) ==
LOC: LAB 16:20
PROVIDERS: ATTEND Internal Medicine
DX: M86.172 Other acute osteomyelitis, left ankle and foot (principal)
CPT/HCPCS: 36415; 85025

== ENCOUNTER 2021-03-26 00:03 | Inpatient (IN) | payer BC ==
[~2021-03-26] VITALS: Ht 162.6 cm; Wt 83.4 kg
[2021-03-26] MEDS ORDERED: SODIUM CHLORIDE 0.9% 500 ML IV ONE (07:30)
[2021-03-26] MEDS ORDERED: SODIUM CHLORIDE 0.9% 1,000 ML IV ONE (07:30)
[2021-03-26 07:43] LABS: Basophils # (auto) 0 10 ^3/uL (0-0.2); Basophils % (auto) 0.6 % (0.0-2.0); Eosinophils # (auto) 0.3 10 ^3/uL (0-0.8); Eosinophils % (auto) 4.2 % (0.0-7.0); Hematocrit 28.3 % (36.0-46.0); Hemoglobin 9.3 g/dL (12.2-16.2); Lymphocytes # (auto) 2.4 10 ^3/uL (0.4-5.4); Lymphocytes % (auto) 34.7 % (10.0-50.0); Mean Corpuscular Hemoglobin 27.6 pg (28.0-32.0); Mean Corpuscular Hgb Conc. 32.7 g/dL (32.0-36.0); Mean Corpuscular Volume 84.3 fL (80.0-100.0); Monocytes # (auto) 0.4 10 ^3/uL (0-1.3); Monocytes % (auto) 6.5 % (0.0-12.0); Neutrophils # (auto) 3.7 10 ^3/uL (1.6-8.6); Red Blood Cells 3.36 10^6/uL (4.0-5.20); Red Cell Distribution Width 14.2 % (11.8-14.3); White Blood Cell 6.8 10^3/uL (4.4-10.8)
[2021-03-26 08:03] LABS: INR 0.98 (0.9-1.15); Partial Thromboplastin Time 26.5 sec (23.6-33.0)
[2021-03-26 08:08] LABS: Calcium 8.8 mg/dL (8.5-10.1); Magnesium 2.4 mg/dL (1.6-2.6); Potassium 4.4 mmol/L (3.5-5.1)
[2021-03-26 08:13] LABS: BUN/Creatinine Ratio 27.3; Bilirubin, Total 0.4 mg/dL (0.2-1.0); Total Protein 7.9 g/dL (6.4-8.2)
[2021-03-26] MEDS ORDERED: LIDOCAINE 1% HCL (LOCAL ANESTH.) INJ 20ML MDV ONE (08:22)
[2021-03-26] MEDS ORDERED: ROPIVACAINE 0.5% (5MG/ML) 20ML AMPULE IJ ONE (08:22)
[2021-03-26] MEDS ORDERED: ceFAZolin 1GM VL ONE (08:22)
[2021-03-26] MEDS ORDERED: CLINDAMYCIN 600MG IV 50 ML IV ONE ×2 (09:58→10:00)
[2021-03-26] MEDS ORDERED: NITROGLYCERIN 0.4 MG SL TAB SL PRN (10:00)
[2021-03-26] MEDS ORDERED: MORPHINE SULFATE INJECTION 2 MG/ML SYRG IV PRN (10:00)
[2021-03-26] MEDS ORDERED: MIDAZOLAM HCL 2MG/2ML 2ml VIAL (1mg/ml) ONE (10:17)
[2021-03-26] MEDS ORDERED: fentaNYL CITRATE 5 ML ONE (10:17)
[2021-03-26] MEDS ORDERED: PROPOFOL 10 MG/ML 20 ML IV ONE (10:21)
[2021-03-26] MEDS ORDERED: ONDANSETRON HCL 4 MG/2 ML VIAL ONE (10:43)
[2021-03-26] MEDS ORDERED: LIDOCAINE 2% (LOCAL ANESTH.) PF 5ml SDV ONE (10:43)
[2021-03-26] MEDS ORDERED: NALOXONE HCL 0.4 MG/ML VIAL ONE (10:46)
[2021-03-26] MEDS ORDERED: ONDANSETRON HCL 4 MG/2 ML VIAL IV PRN (11:15)
[2021-03-26 13:34] VITALS: BP 133/88
[2021-03-26] MEDS ORDERED: APIX5TAB PO (16:06)
[2021-03-26] MEDS ORDERED: HYDROcodone-ACET 5/325MG TAB PO PRN (16:45)
[2021-03-26 17:00] VITALS: BP 146/86
[2021-03-26 20:00] VITALS: BP 113/65
[2021-03-26 22:00] VITALS: BP 113/65
[2021-03-26] MEDS ORDERED: APIXABAN 5 MG TAB PO SCH (22:00)
[2021-03-26] MEDS: INSULIN LANTUS (GLARGINE) 1 /0.01ml (100units/ml) SC SCH (22:21)
[2021-03-27 05:00] VITALS: BP 103/55
[2021-03-27] MEDS: INSULIN LANTUS (GLARGINE) 1 /0.01ml (100units/ml) SC SCH (06:37)
[2021-03-27] MEDS ORDERED: LEVOTHYROXINE SODIUM 25 MCG TAB PO SCH (07:00)
[2021-03-27 09:00] VITALS: BP 142/85
[2021-03-27 13:00] VITALS: BP 141/88
[2021-03-27 15:42] VITALS: BP 141/88
[2021-03-27 15:56] VITALS: BP 141/88
[2021-03-27 17:00] VITALS: BP 128/86
== END 2021-03-27 19:00 | disposition home or self-care (01) | DRG 574 ==
LOC: ER 00:03 → OVERFLOW 09:59 → WEST WING 13:00
PROVIDERS: ADMIT Podiatrist Foot & Ankle Surgery; ATTEND Internal Medicine
PROC: 0JBR0ZZ Excision of Left Foot Subcutaneous Tissue and Fascia, Open Approach (ICD-10-PCS; 2021-03-26)
PROC: 0HRNXK3 Replacement of Left Foot Skin with Nonautologous Tissue Substitute, Full Thickness, External Approach (ICD-10-PCS; principal; 2021-03-26 10:15)
DX: L97.522 Non-pressure chronic ulcer of other part of left foot with fat layer exposed (principal); I82.622 Acute embolism and thrombosis of deep veins of left upper extremity; M86.8X7 Other osteomyelitis, ankle and foot; E03.9 Hypothyroidism, unspecified; E10.21 Type 1 diabetes mellitus with diabetic nephropathy; E10.69 Type 1 diabetes mellitus with other specified complication; E10.621 Type 1 diabetes mellitus with foot ulcer; Z20.822 Contact with and (suspected) exposure to COVID-19; Z79.4 Long term (current) use of insulin; Z86.718 Personal history of other venous thrombosis and embolism; Z89.412 Acquired absence of left great toe; Z89.429 Acquired absence of other toe(s), unspecified side; Z88.1 Allergy status to other antibiotic agents
CPT/HCPCS: 36415; 71046; 80053; 82962; 83735; 84702; 85025; 85610; 85730; 87070; 87075; 87077; 87186; 87205; 87426; 93005; 96360; 96372; G0378; J0690; J1815; J2001; J2250; J2405; J2704; J3490

== ENCOUNTER 2022-04-07 18:47 | Inpatient (IN) | payer BC, MEDICAID ==
[~2022-04-07] VITALS: Ht 165.1 cm; Wt 98.8 kg
[~2022-04-07 18:47] MED LIST changes: +APIX5TAB PO; -INSUINJ37 SC
[2022-04-07 22:43] LABS: Basophils # (auto) 0.1 10 ^3/uL (0-0.2); Eosinophils # (auto) 0.1 10 ^3/uL (0-0.8); Neutrophils # (auto) 7.7 10 ^3/uL (1.6-8.6)
[2022-04-07 22:45] LABS: Basophils % (auto) 0.8 % (0.0-2.0); Hematocrit 27.6 % (36.0-46.0); Hemoglobin 8.9 g/dL (12.2-16.2); Lymphocytes # (auto) 1.7 10 ^3/uL (0.4-5.4); Lymphocytes % (auto) 16.6 % (10.0-50.0); Mean Corpuscular Hemoglobin 24.9 pg (28.0-32.0); Mean Corpuscular Hgb Conc. 32.4 g/dL (32.0-36.0); Mean Corpuscular Volume 77.1 fL (80.0-100.0); Monocytes # (auto) 0.5 10 ^3/uL (0-1.3); Monocytes % (auto) 4.8 % (0.0-12.0); Neutrophils % (auto) 76.8 % (37.0-80.0); Red Blood Cells 3.58 10^6/uL (4.0-5.20); Red Cell Distribution Width 12.9 % (11.8-14.3)
[2022-04-07 23:01] LABS: Calcium 8.5 mg/dL (8.5-10.1); Potassium 4.8 mmol/L (3.5-5.1)
[2022-04-07 23:09] LABS: Bilirubin, Total 0.4 mg/dL (0.2-1.0); CRP High Sensitivity 11.2 mg/dL (< 0.3); Total Protein 7.1 g/dL (6.4-8.2)
[2022-04-08] MEDS ORDERED: HYDROcodone-ACET 5/325MG TAB PO PRN (06:45)
[2022-04-08] MEDS ORDERED: cefTRIAXone 1GM/50ML D5W 50 ML IV ONE (06:45)
[2022-04-08] MEDS ORDERED: ONDANSETRON HCL 4 MG/2 ML VIAL IV PRN (06:45)
[2022-04-08] MEDS ORDERED: ACETAMINOPHEN 325 MG TAB PO PRN (06:45)
[2022-04-08] MEDS ORDERED: DEXTROSE (50%) 50ML SYRG IV PRN (06:45)
[2022-04-08] MEDS ORDERED: VANCOMYCIN 1GM/250ML 250 ML IV ONE (06:45)
[2022-04-08] MEDS ORDERED: InsuLIN REG 1unit/0.01ml Soln (100units/ml) IV ONE (07:00)
[2022-04-08] MEDS ORDERED: SODIUM CHLORIDE 0.9% 1,000 ML IV ONE (07:00)
[2022-04-08] MEDS: LEVOTHYROXINE SODIUM 25 MCG TAB PO SCH (07:52)
[2022-04-08] MEDS: ACCU-CHEK COMFORT CURVE STRIP VI SCH ×4 (09:00→22:00)
[2022-04-08] MEDS: InsuLIN REG 1unit/0.01ml Soln (100units/ml) SC SCH ×2 (09:00→12:00)
[2022-04-08] MEDS ORDERED: INSULIN LANTUS (GLARGINE) 1 /0.01ml (100units/ml) SC SCH (12:30)
[2022-04-08] MEDS: PANTOPRAZOLE 40 MG TAB PO SCH (13:02)
[2022-04-08] MEDS: APIXABAN 5 MG TAB PO SCH ×2 (13:03→23:26)
[2022-04-08] MEDS: levoFLOXacin 500MG 100 ML IV SCH (13:03)
[2022-04-08] MEDS ORDERED: VANCOMYCIN PER PHARMACY 0 MG IV SCH (13:15)
[2022-04-08 14:16] LABS: Cholesterol 169 mg/dL (< 200); Triglycerides 245 mg/dL (< 150)
[2022-04-08 14:19] LABS: HDL Cholesterol 31 mg/dL (40-59); LDL Cholesterol 107 mg/dL (< 100)
[2022-04-08] MEDS: SODIUM CHLORIDE 0.9% 1,000 ML IV SCH (19:30)
[2022-04-08] MEDS ORDERED: ACCU-CHEK COMFORT CURVE STRIP VI SCH (22:00)
[2022-04-08] MEDS: VANCOMYCIN 1GM/250ML 250 ML IV SCH (23:26)
[2022-04-08] MEDS: INSULIN LANTUS (GLARGINE) 1 /0.01ml (100units/ml) SC SCH (23:28)
[2022-04-09] VITALS (7 sets, daily range): BP systolic 117–156; BP diastolic 61–87
[2022-04-09] MEDS: SODIUM CHLORIDE 0.9% 1,000 ML IV SCH ×3 (04:12→23:22)
[2022-04-09 06:35] LABS: Eosinophils # (auto) 0.1 10 ^3/uL (0-0.8); Lymphocytes # (auto) 1.5 10 ^3/uL (0.4-5.4); Monocytes # (auto) 0.6 10 ^3/uL (0-1.3); Neutrophils # (auto) 6.7 10 ^3/uL (1.6-8.6); White Blood Cell 8.9 10^3/uL (4.4-10.8)
[2022-04-09 06:37] LABS: Basophils # (auto) 0 10 ^3/uL (0-0.2); Basophils % (auto) 0.3 % (0.0-2.0); Eosinophils % (auto) 1.3 % (0.0-7.0); Hematocrit 22.5 % (36.0-46.0); Hemoglobin 7.4 g/dL (12.2-16.2); Lymphocytes % (auto) 16.5 % (10.0-50.0); Mean Corpuscular Volume 75.8 fL (80.0-100.0); Monocytes % (auto) 6.9 % (0.0-12.0); Red Blood Cells 2.97 10^6/uL (4.0-5.20)
[2022-04-09] MEDS: LEVOTHYROXINE SODIUM 25 MCG TAB PO SCH (06:37)
[2022-04-09] MEDS: ACCU-CHEK COMFORT CURVE STRIP VI SCH ×4 (06:38→23:22)
[2022-04-09] MEDS: InsuLIN REG 1unit/0.01ml Soln (100units/ml) SC SCH ×3 (06:40→18:05)
[2022-04-09] MEDS: INSULIN LANTUS (GLARGINE) 1 /0.01ml (100units/ml) SC SCH ×2 (06:40→23:28)
[2022-04-09 06:53] LABS: BUN/Creatinine Ratio 21.1; Calcium 8.3 mg/dL (8.5-10.1); Potassium 4.3 mmol/L (3.5-5.1)
[2022-04-09] MEDS ORDERED: INSULIN LANTUS (GLARGINE) 1 /0.01ml (100units/ml) SC ONE (08:30)
[2022-04-09] MEDS: APIXABAN 5 MG TAB PO SCH ×2 (09:33→23:29)
[2022-04-09] MEDS: PANTOPRAZOLE 40 MG TAB PO SCH (09:33)
[2022-04-09] MEDS: levoFLOXacin 500MG 100 ML IV SCH (09:34)
[2022-04-09] MEDS: VANCOMYCIN 1GM/250ML 250 ML IV SCH (13:56)
[2022-04-09] MEDS ORDERED: SODIUM FERR GLUC 62.5MG/5ML 125 MG in SODIUM CHL 0.9% 100 ML IV ONE ×2 (14:45→19:15)
[2022-04-09] MEDS: GEMFIBROZIL 600 MG TAB PO SCH (23:29)
[2022-04-10] MEDS: VANCOMYCIN 1GM/250ML 250 ML IV SCH ×2 (03:00→13:30)
[2022-04-10] MEDS: SODIUM CHLORIDE 0.9% 1,000 ML IV SCH ×3 (03:30→11:46)
[2022-04-10 05:00] VITALS: BP 104/56
[2022-04-10] MEDS: ACCU-CHEK COMFORT CURVE STRIP VI SCH ×4 (06:26→22:29)
[2022-04-10] MEDS: InsuLIN REG 1unit/0.01ml Soln (100units/ml) SC SCH ×3 (06:29→17:47)
[2022-04-10] MEDS: LEVOTHYROXINE SODIUM 25 MCG TAB PO SCH (06:30)
[2022-04-10] MEDS: INSULIN LANTUS (GLARGINE) 1 /0.01ml (100units/ml) SC SCH ×2 (06:31→22:29)
[2022-04-10 07:02] LABS: INR 1.05 (0.9-1.15); Partial Thromboplastin Time 38.4 sec (24.6-33.4)
[2022-04-10 07:20] LABS: Potassium 4.9 mmol/L (3.5-5.1)
[2022-04-10 07:54] LABS: BUN/Creatinine Ratio 21.4; Calcium 7.9 mg/dL (8.5-10.1)
[2022-04-10 08:00] VITALS: BP 137/71
[2022-04-10 09:10] VITALS: BP 95/50
[2022-04-10] MEDS: GEMFIBROZIL 600 MG TAB PO SCH ×2 (10:31→22:24)
[2022-04-10] MEDS: APIXABAN 5 MG TAB PO SCH ×2 (10:31→22:24)
[2022-04-10] MEDS: levoFLOXacin 500MG 100 ML IV SCH (10:31)
[2022-04-10] MEDS: SODIUM FERR GLUC 62.5MG/5ML 125 MG in SODIUM CHL 0.9% 100 ML IV SCH (11:46)
[2022-04-10] MEDS ORDERED: VANCOMYCIN 1GM/250ML 250 ML IV SCH (12:00)
[2022-04-10 13:00] VITALS: BP 137/71
[2022-04-10 17:00] VITALS: BP 131/70
[2022-04-10 22:00] VITALS: BP 125/68
[2022-04-10] MEDS: DAKINS QUARTER STR 0.125% (NaHypochlorite) 473 ML TOPICAL SOL TOP SCH (22:00)
[2022-04-11] MEDS: SODIUM CHLORIDE 0.9% 1,000 ML IV SCH ×3 (03:54→15:46)
[2022-04-11 05:00] VITALS: BP_SYST 107; BP_SYST 131; BP_DIAS 54; BP_DIAS 78
[2022-04-11] MEDS: LEVOTHYROXINE SODIUM 25 MCG TAB PO SCH (06:12)
[2022-04-11] MEDS: VANCOMYCIN 1GM/250ML 250 ML IV SCH ×2 (06:12→23:50)
[2022-04-11] MEDS: ACCU-CHEK COMFORT CURVE STRIP VI SCH ×4 (06:12→22:28)
[2022-04-11] MEDS: INSULIN LANTUS (GLARGINE) 1 /0.01ml (100units/ml) SC SCH ×2 (06:14→22:43)
[2022-04-11 06:18] LABS: Basophils # (auto) 0 10 ^3/uL (0-0.2); Eosinophils # (auto) 0.1 10 ^3/uL (0-0.8); Eosinophils % (auto) 1.2 % (0.0-7.0); Hemoglobin 7.3 g/dL (12.2-16.2); Lymphocytes % (auto) 23.7 % (10.0-50.0); Monocytes # (auto) 0.6 10 ^3/uL (0-1.3); Neutrophils # (auto) 6.5 10 ^3/uL (1.6-8.6); White Blood Cell 9.5 10^3/uL (4.4-10.8)
[2022-04-11] MEDS: InsuLIN REG 1unit/0.01ml Soln (100units/ml) SC SCH ×3 (06:19→17:21)
[2022-04-11 06:21] LABS: Basophils % (auto) 0.4 % (0.0-2.0); Lymphocytes # (auto) 2.2 10 ^3/uL (0.4-5.4); Mean Corpuscular Hemoglobin 24.9 pg (28.0-32.0); Mean Corpuscular Hgb Conc. 33.1 g/dL (32.0-36.0); Mean Corpuscular Volume 75.2 fL (80.0-100.0); Monocytes % (auto) 6.2 % (0.0-12.0); Neutrophils % (auto) 68.5 % (37.0-80.0); Red Blood Cells 2.92 10^6/uL (4.0-5.20); Red Cell Distribution Width 12.9 % (11.8-14.3)
[2022-04-11 06:36] LABS: Calcium 8.5 mg/dL (8.5-10.1); Potassium 4.3 mmol/L (3.5-5.1)
[2022-04-11 06:53] LABS: BUN/Creatinine Ratio 16.5
[2022-04-11 07:55] VITALS: BP 107/60
[2022-04-11 08:25] VITALS: BP 107/60
[2022-04-11] MEDS: GEMFIBROZIL 600 MG TAB PO SCH ×2 (09:45→22:27)
[2022-04-11] MEDS: APIXABAN 5 MG TAB PO SCH ×2 (09:45→22:27)
[2022-04-11] MEDS: levoFLOXacin 500MG 100 ML IV SCH (09:49)
[2022-04-11] MEDS: DAKINS QUARTER STR 0.125% (NaHypochlorite) 473 ML TOPICAL SOL TOP SCH ×2 (09:49→22:27)
[2022-04-11] MEDS: SODIUM FERR GLUC 62.5MG/5ML 125 MG in SODIUM CHL 0.9% 100 ML IV SCH (12:16)
[2022-04-11 12:42] VITALS: BP 133/74
[2022-04-11 17:00] VITALS: BP 128/74
[2022-04-11] MEDS ORDERED: LIDOCAINE 1% (LOCAL ANESTH.) PF 5ml SDV ID ONE (19:00)
[2022-04-11 22:00] VITALS: BP 130/69
[2022-04-11] MEDS: SODIUM CHLOR 0.9% PF (SALINE LOCK) 10ML VIAL/SYR IV SCH (22:27)
[2022-04-12] MEDS: SODIUM CHLORIDE 0.9% 1,000 ML IV SCH ×3 (03:30→19:30)
[2022-04-12 05:00] VITALS: BP 101/56
[2022-04-12] MEDS: LEVOTHYROXINE SODIUM 25 MCG TAB PO SCH (05:53)
[2022-04-12] MEDS: InsuLIN REG 1unit/0.01ml Soln (100units/ml) SC SCH ×3 (05:53→17:18)
[2022-04-12] MEDS: ACCU-CHEK COMFORT CURVE STRIP VI SCH ×4 (05:53→22:17)
[2022-04-12] MEDS: INSULIN LANTUS (GLARGINE) 1 /0.01ml (100units/ml) SC SCH ×3 (05:53→22:35)
[2022-04-12 09:00] VITALS: BP 102/53
[2022-04-12] MEDS: APIXABAN 5 MG TAB PO SCH ×2 (11:53→22:34)
[2022-04-12] MEDS: GEMFIBROZIL 600 MG TAB PO SCH ×2 (11:53→22:34)
[2022-04-12] MEDS: levoFLOXacin 500MG 100 ML IV SCH (11:53)
[2022-04-12] MEDS: SODIUM CHLOR 0.9% PF (SALINE LOCK) 10ML VIAL/SYR IV SCH ×2 (12:01→22:14)
[2022-04-12] MEDS: DAKINS QUARTER STR 0.125% (NaHypochlorite) 473 ML TOPICAL SOL TOP SCH ×2 (12:01→22:34)
[2022-04-12 13:00] VITALS: BP 118/72
[2022-04-12] MEDS: FLUCONAZOLE 200MG/100ML 100 ML IV SCH (13:16)
[2022-04-12] MEDS: SODIUM FERR GLUC 62.5MG/5ML 125 MG in SODIUM CHL 0.9% 100 ML IV SCH (14:42)
[2022-04-12 17:00] VITALS: BP 149/88
[2022-04-12] MEDS: VANCOMYCIN 1GM/250ML 250 ML IV SCH (17:56)
[2022-04-12 20:00] VITALS: BP 141/78
[2022-04-12 22:00] VITALS: BP 141/78
[2022-04-13 01:27] LABS: Urine Bacteria FEW /hpf (None Seen); Urine Blood 1+ /uL (Negative); Urine WBC 25 /hpf (0 - 5)
[2022-04-13] MEDS: SODIUM CHLORIDE 0.9% 1,000 ML IV SCH ×3 (03:30→19:30)
[2022-04-13 05:00] VITALS: BP 113/62
[2022-04-13] MEDS: LEVOTHYROXINE SODIUM 25 MCG TAB PO SCH (06:16)
[2022-04-13] MEDS: ACCU-CHEK COMFORT CURVE STRIP VI SCH ×4 (06:16→21:31)
[2022-04-13] MEDS: InsuLIN REG 1unit/0.01ml Soln (100units/ml) SC SCH ×3 (06:16→17:30)
[2022-04-13] MEDS: INSULIN LANTUS (GLARGINE) 1 /0.01ml (100units/ml) SC SCH ×2 (06:17→21:39)
[2022-04-13 09:00] VITALS: BP 117/70
[2022-04-13] MEDS: levoFLOXacin 500MG 100 ML IV SCH (10:13)
[2022-04-13] MEDS: GEMFIBROZIL 600 MG TAB PO SCH ×2 (10:13→21:30)
[2022-04-13] MEDS: APIXABAN 5 MG TAB PO SCH ×2 (10:13→21:30)
[2022-04-13] MEDS: SODIUM CHLOR 0.9% PF (SALINE LOCK) 10ML VIAL/SYR IV SCH ×2 (10:20→21:28)
[2022-04-13] MEDS: DAKINS QUARTER STR 0.125% (NaHypochlorite) 473 ML TOPICAL SOL TOP SCH (10:21)
[2022-04-13] MEDS: FLUCONAZOLE 200MG/100ML 100 ML IV SCH (11:30)
[2022-04-13] MEDS: VANCOMYCIN 1GM/250ML 250 ML IV SCH (12:38)
[2022-04-13] MEDS ORDERED: PENICILLIN G POTASSIUM 1,000 UNITS in SODIUM CHL 0.9% 0.1 ML SCRATCHTES ONE (12:45)
[2022-04-13] MEDS ORDERED: PENICILLOYL POLYLYSINE 0.25 ML INJ ID ONE ×2 (12:45)
[2022-04-13] MEDS ORDERED: HISTAMINE PHOS 1mg/ml 5ML SCRATCH TEST SCRATCHTES ONE (12:45)
[2022-04-13] MEDS ORDERED: PENICILLIN G POTASSIUM 1,000 UNITS in SODIUM CHL 0.9% 0.1 ML ID ONE ×4 (12:45)
[2022-04-13] MEDS ORDERED: SODIUM CHLOR 0.9% PF (SALINE LOCK) 10ML VIAL/SYR ID ONE (12:45)
[2022-04-13] MEDS ORDERED: PENICILLOYL POLYLYSINE 0.25 ML INJ SCRATCHTES ONE (12:45)
[2022-04-13] MEDS ORDERED: SODIUM CHLOR 0.9% PF (SALINE LOCK) 10ML VIAL/SYR SCRATCHTES ONE (12:45)
[2022-04-13 13:00] VITALS: BP 133/67
[2022-04-13] MEDS ORDERED: GADOTERATE MEG 10 MMOL/20ml INJ (0.5MMOL/ml) IV ONE (14:35)
[2022-04-13 17:00] VITALS: BP 134/78
[2022-04-13] MEDS: SODIUM FERR GLUC 62.5MG/5ML 125 MG in SODIUM CHL 0.9% 100 ML IV SCH (17:40)
[2022-04-14] MEDS: SODIUM CHLORIDE 0.9% 1,000 ML IV SCH ×3 (03:30→19:30)
[2022-04-14 05:00] VITALS: BP 108/55
[2022-04-14] MEDS: DAKINS QUARTER STR 0.125% (NaHypochlorite) 473 ML TOPICAL SOL TOP SCH ×3 (05:27→22:00)
[2022-04-14] MEDS: VANCOMYCIN 1GM/250ML 250 ML IV SCH (05:53)
[2022-04-14] MEDS: ACCU-CHEK COMFORT CURVE STRIP VI SCH ×4 (05:54→21:16)
[2022-04-14] MEDS: LEVOTHYROXINE SODIUM 25 MCG TAB PO SCH (05:54)
[2022-04-14] MEDS: InsuLIN REG 1unit/0.01ml Soln (100units/ml) SC SCH ×3 (05:55→17:00)
[2022-04-14] MEDS: INSULIN LANTUS (GLARGINE) 1 /0.01ml (100units/ml) SC SCH ×2 (05:55→21:25)
[2022-04-14 08:53] VITALS: BP 118/62
[2022-04-14] MEDS: SODIUM CHLOR 0.9% PF (SALINE LOCK) 10ML VIAL/SYR IV SCH ×2 (10:19→21:16)
[2022-04-14] MEDS: APIXABAN 5 MG TAB PO SCH ×2 (10:19→21:16)
[2022-04-14] MEDS: GEMFIBROZIL 600 MG TAB PO SCH ×2 (10:19→21:16)
[2022-04-14] MEDS: FLUCONAZOLE 200MG/100ML 100 ML IV SCH (10:19)
[2022-04-14] MEDS: levoFLOXacin 500MG 100 ML IV SCH (10:19)
[2022-04-14 13:00] VITALS: BP 122/70
[2022-04-14 17:00] VITALS: BP 123/70
[2022-04-14] MEDS: AMPICILLIN & SULBACTAM SODIUM 3 GM in SODIUM CHL 0.9% 100 ML IV SCH ×2 (19:28→23:15)
[2022-04-14 22:00] VITALS: BP 139/85
[2022-04-15] MEDS: SODIUM CHLORIDE 0.9% 1,000 ML IV SCH ×3 (03:30→19:30)
[2022-04-15 05:00] VITALS: BP 97/50
[2022-04-15] MEDS: AMPICILLIN & SULBACTAM SODIUM 3 GM in SODIUM CHL 0.9% 100 ML IV SCH ×3 (05:15→17:59)
[2022-04-15] MEDS: ACCU-CHEK COMFORT CURVE STRIP VI SCH ×4 (06:40→23:01)
[2022-04-15] MEDS: InsuLIN REG 1unit/0.01ml Soln (100units/ml) SC SCH ×3 (06:41→17:00)
[2022-04-15] MEDS: LEVOTHYROXINE SODIUM 25 MCG TAB PO SCH (06:41)
[2022-04-15] MEDS: INSULIN LANTUS (GLARGINE) 1 /0.01ml (100units/ml) SC SCH ×2 (06:47→23:00)
[2022-04-15 09:00] VITALS: BP 136/85
[2022-04-15] MEDS: DAKINS QUARTER STR 0.125% (NaHypochlorite) 473 ML TOPICAL SOL TOP SCH ×2 (10:19→23:00)
[2022-04-15] MEDS: GEMFIBROZIL 600 MG TAB PO SCH ×2 (10:19→22:59)
[2022-04-15] MEDS: SODIUM CHLOR 0.9% PF (SALINE LOCK) 10ML VIAL/SYR IV SCH ×2 (10:20→22:59)
[2022-04-15] MEDS: APIXABAN 5 MG TAB PO SCH ×2 (10:25→22:59)
[2022-04-15 11:29] LABS: Basophils # (auto) 0.1 10 ^3/uL (0-0.2); Basophils % (auto) 0.5 % (0.0-2.0); Eosinophils # (auto) 0.2 10 ^3/uL (0-0.8); Eosinophils % (auto) 1.5 % (0.0-7.0); Hematocrit 26.3 % (36.0-46.0); Hemoglobin 8.3 g/dL (12.2-16.2); Lymphocytes # (auto) 1.8 10 ^3/uL (0.4-5.4); Lymphocytes % (auto) 15.4 % (10.0-50.0); Mean Corpuscular Hemoglobin 24.8 pg (28.0-32.0); Mean Corpuscular Hgb Conc. 31.5 g/dL (32.0-36.0); Mean Corpuscular Volume 78.8 fL (80.0-100.0); Monocytes # (auto) 0.6 10 ^3/uL (0-1.3); Monocytes % (auto) 4.9 % (0.0-12.0); Neutrophils # (auto) 9.1 10 ^3/uL (1.6-8.6); Neutrophils % (auto) 77.7 % (37.0-80.0); Nucleated Red Blood Cells % 0.1 %; Red Blood Cells 3.34 10^6/uL (4.0-5.20); White Blood Cell 11.7 10^3/uL (4.4-10.8)
[2022-04-15 11:49] LABS: BUN/Creatinine Ratio 19.5; Calcium 8.9 mg/dL (8.5-10.1)
[2022-04-15 13:43] VITALS: BP 121/75
[2022-04-15 16:39] VITALS: BP 145/84
[2022-04-15 22:00] VITALS: BP 159/95
[2022-04-15] MEDS ORDERED: hydrALAZINE HCL 20 MG/ML VL IV PRN (23:45)
[2022-04-16] MEDS: AMPICILLIN & SULBACTAM SODIUM 3 GM in SODIUM CHL 0.9% 100 ML IV SCH ×2 (00:01→05:54)
[2022-04-16] MEDS: SODIUM CHLORIDE 0.9% 1,000 ML IV SCH (03:30)
[2022-04-16 05:00] VITALS: BP 90/55
[2022-04-16] MEDS: LEVOTHYROXINE SODIUM 25 MCG TAB PO SCH (06:09)
[2022-04-16] MEDS: InsuLIN REG 1unit/0.01ml Soln (100units/ml) SC SCH ×2 (06:10→11:30)
[2022-04-16] MEDS: ACCU-CHEK COMFORT CURVE STRIP VI SCH ×2 (06:10→11:37)
[2022-04-16] MEDS: INSULIN LANTUS (GLARGINE) 1 /0.01ml (100units/ml) SC SCH (06:11)
[2022-04-16 09:00] VITALS: BP 137/84
[2022-04-16] MEDS: APIXABAN 5 MG TAB PO SCH (09:59)
[2022-04-16] MEDS: DAKINS QUARTER STR 0.125% (NaHypochlorite) 473 ML TOPICAL SOL TOP SCH (10:00)
[2022-04-16] MEDS: SODIUM CHLOR 0.9% PF (SALINE LOCK) 10ML VIAL/SYR IV SCH (10:00)
[2022-04-16] MEDS: GEMFIBROZIL 600 MG TAB PO SCH (10:00)
[2022-04-16 13:00] VITALS: BP 157/89
[2022-04-16 13:39] VITALS: BP 160/91
== END 2022-04-16 15:25 | disposition home health service (06) | DRG 344 ==
LOC: ER 18:49 → OVERFLOW 04-08 07:02 → WEST WING 04-09 01:55
PROVIDERS: ADMIT Nurse Practitioner; ATTEND Hospitalist
PROC: 02HV33Z Insertion of Infusion Device into Superior Vena Cava, Percutaneous Approach (ICD-10-PCS; principal; 2022-04-11)
PROC: B548ZZA Ultrasonography of Superior Vena Cava, Guidance (ICD-10-PCS; 2022-04-11)
DX: E11.621 Type 2 diabetes mellitus with foot ulcer (principal); M86.172 Other acute osteomyelitis, left ankle and foot; E11.21 Type 2 diabetes mellitus with diabetic nephropathy; L97.329 Non-pressure chronic ulcer of left ankle with unspecified severity; L89.890 Pressure ulcer of other site, unstageable; E03.9 Hypothyroidism, unspecified; Z20.822 Contact with and (suspected) exposure to COVID-19; E11.69 Type 2 diabetes mellitus with other specified complication; E78.5 Hyperlipidemia, unspecified; E11.65 Type 2 diabetes mellitus with hyperglycemia; Z91.199 Patient's noncompliance with other medical treatment and regimen due to unspecified reason; E66.9 Obesity, unspecified; Z68.35 Body mass index [BMI] 35.0-35.9, adult; Z82.49 Family history of ischemic heart disease and other diseases of the circulatory system; Z83.3 Family history of diabetes mellitus; Z88.0 Allergy status to penicillin; Z89.412 Acquired absence of left great toe
CPT/HCPCS: 36415; 36569; 71045; 72157; 72158; 73610; 73700; 73718; 80048; 80053; 80061; 80202; 81001; 82565; 82962; 83036; 84702; 85025; 85610; 85652; 85730; 86141; 87077; 87086; 87205; 87426; 97110; 97116; 97163; 97530; G0378; J0696; J1450; J1815; J1956; J2405

== ENCOUNTER 2022-05-17 15:16 | Inpatient (IN) | payer MEDICAID ==
[~2022-05-17] VITALS: Ht 165.1 cm; Wt 92.8 kg
[2022-05-17] MEDS ORDERED: VANCOMYCIN PER PHARMACY 1,000 MG IV SCH (18:30)
[2022-05-17 19:02] LABS: Basophils # (auto) 0 10 ^3/uL (0-0.2); Basophils % (auto) 0.3 % (0.0-2.0); Eosinophils # (auto) 0.6 10 ^3/uL (0-0.8); Eosinophils % (auto) 6.3 % (0.0-7.0); Hematocrit 31.9 % (36.0-46.0); Hemoglobin 10.6 g/dL (12.2-16.2); Lymphocytes # (auto) 1.7 10 ^3/uL (0.4-5.4); Lymphocytes % (auto) 17.9 % (10.0-50.0); Mean Corpuscular Hemoglobin 26.2 pg (28.0-32.0); Mean Corpuscular Hgb Conc. 33.2 g/dL (32.0-36.0); Mean Corpuscular Volume 78.8 fL (80.0-100.0); Monocytes # (auto) 0.3 10 ^3/uL (0-1.3); Monocytes % (auto) 3.4 % (0.0-12.0); Neutrophils # (auto) 6.8 10 ^3/uL (1.6-8.6); Neutrophils % (auto) 72.1 % (37.0-80.0); Red Blood Cells 4.05 10^6/uL (4.0-5.20); Red Cell Distribution Width 17.9 % (11.8-14.3); White Blood Cell 9.4 10^3/uL (4.4-10.8)
[2022-05-17 19:13] LABS: Albumin 3.2 g/dL (3.4-5.0); BUN/Creatinine Ratio 21.7 (10.0-20.0); Potassium 4.2 mmol/L (3.5-5.1)
[2022-05-17 19:16] LABS: Bilirubin, Total 0.3 mg/dL (0.2-1.0); Total Protein 7.4 g/dL (6.4-8.2)
[2022-05-17] MEDS ORDERED: SODIUM CHLORIDE 0.9% 1,000 ML IV ONE (20:00)
[2022-05-17] MEDS ORDERED: ACETAMINOPHEN 325 MG TAB PO PRN (21:15)
[2022-05-17] MEDS ORDERED: DEXTROSE (50%) 50ML SYRG IV PRN (21:15)
[2022-05-17] MEDS ORDERED: VANCOMYCIN PER PHARMACY 0 MG IV SCH (21:15)
[2022-05-17] MEDS ORDERED: TEMAZEPAM 15 MG CAP PO PRN (21:15)
[2022-05-17] MEDS ORDERED: ONDANSETRON HCL 4 MG/2 ML VIAL IV PRN (21:15)
[2022-05-17] MEDS ORDERED: VANCOMYCIN 1GM/250ML 250 ML IV SCH (22:00)
[2022-05-17] MEDS: InsuLIN REG 1unit/0.01ml Soln (100units/ml) SC SCH (22:49)
[2022-05-17] MEDS: ACCU-CHEK COMFORT CURVE STRIP VI SCH (22:49)
[2022-05-18 06:49] LABS: Basophils # (auto) 0 10 ^3/uL (0-0.2); Basophils % (auto) 0.4 % (0.0-2.0); Eosinophils # (auto) 0.5 10 ^3/uL (0-0.8); Hemoglobin 9.6 g/dL (12.2-16.2); Monocytes # (auto) 0.4 10 ^3/uL (0-1.3); Nucleated Red Blood Cells % 0.2 %
[2022-05-18 06:51] LABS: Eosinophils % (auto) 5.1 % (0.0-7.0); Hematocrit 28.6 % (36.0-46.0); Lymphocytes # (auto) 2.3 10 ^3/uL (0.4-5.4); Lymphocytes % (auto) 25.5 % (10.0-50.0); Mean Corpuscular Hemoglobin 25.5 pg (28.0-32.0); Mean Corpuscular Hgb Conc. 33.5 g/dL (32.0-36.0); Monocytes % (auto) 4.6 % (0.0-12.0); Neutrophils # (auto) 5.9 10 ^3/uL (1.6-8.6); Neutrophils % (auto) 64.4 % (37.0-80.0); Red Blood Cells 3.76 10^6/uL (4.0-5.20); White Blood Cell 9.2 10^3/uL (4.4-10.8)
[2022-05-18] MEDS: InsuLIN REG 1unit/0.01ml Soln (100units/ml) SC SCH ×4 (07:00→20:57)
[2022-05-18 07:22] LABS: Potassium 4.1 mmol/L (3.5-5.1)
[2022-05-18] MEDS: ACCU-CHEK COMFORT CURVE STRIP VI SCH ×4 (07:23→20:53)
[2022-05-18 07:32] LABS: Calcium 8.6 mg/dL (8.5-10.1)
[2022-05-18 09:00] VITALS: BP 135/79
[2022-05-18 10:00] VITALS: BP 135/79
[2022-05-18] MEDS: PANTOPRAZOLE 40 MG TAB PO SCH (11:14)
[2022-05-18] MEDS ORDERED: AMPICILLIN SOD 2GM INJ 2 GM in SODIUM CHL 0.9% 100 ML IV SCH (12:00)
[2022-05-18] MEDS: AMPICILLIN & SULBACTAM SODIUM 3 GM in SODIUM CHL 0.9% 100 ML IV SCH ×2 (12:21→17:50)
[2022-05-18 13:00] VITALS: BP 144/81
[2022-05-18 16:55] VITALS: BP 156/91
[2022-05-18] MEDS: ENOXAPARIN SOD 100 MG/1 ML SYRINGE SC SCH (17:47)
[2022-05-18] MEDS ORDERED: diphenhdrAMINE HCL 25 MG CAP PO ONE (18:15)
[2022-05-18 22:00] VITALS: BP 162/88
[2022-05-19] MEDS: AMPICILLIN & SULBACTAM SODIUM 3 GM in SODIUM CHL 0.9% 100 ML IV SCH ×5 (00:46→22:21)
[2022-05-19 05:00] VITALS: BP 121/64
[2022-05-19 06:13] LABS: Basophils # (auto) 0 10 ^3/uL (0-0.2); Eosinophils # (auto) 0.6 10 ^3/uL (0-0.8); Hemoglobin 9.3 g/dL (12.2-16.2); Monocytes # (auto) 0.4 10 ^3/uL (0-1.3); Nucleated Red Blood Cells % 0.1 %
[2022-05-19 06:18] LABS: Basophils % (auto) 0.4 % (0.0-2.0); Eosinophils % (auto) 7.8 % (0.0-7.0); Hematocrit 28.2 % (36.0-46.0); Lymphocytes # (auto) 2.5 10 ^3/uL (0.4-5.4); Lymphocytes % (auto) 33.6 % (10.0-50.0); Mean Corpuscular Hemoglobin 25.8 pg (28.0-32.0); Mean Corpuscular Hgb Conc. 32.9 g/dL (32.0-36.0); Mean Corpuscular Volume 78.4 fL (80.0-100.0); Neutrophils % (auto) 53.2 % (37.0-80.0); Red Cell Distribution Width 17.6 % (11.8-14.3); White Blood Cell 7.5 10^3/uL (4.4-10.8)
[2022-05-19] MEDS: ENOXAPARIN SOD 100 MG/1 ML SYRINGE SC SCH ×2 (06:21→17:59)
[2022-05-19] MEDS: ACCU-CHEK COMFORT CURVE STRIP VI SCH ×4 (06:22→21:52)
[2022-05-19] MEDS: InsuLIN REG 1unit/0.01ml Soln (100units/ml) SC SCH ×4 (06:26→21:52)
[2022-05-19 06:37] LABS: BUN/Creatinine Ratio 24.1 (10.0-20.0); Calcium 8.8 mg/dL (8.5-10.1)
[2022-05-19 08:00] VITALS: BP 121/69
[2022-05-19] MEDS: PANTOPRAZOLE 40 MG TAB PO SCH (10:37)
[2022-05-19] MEDS: DAKINS QUARTER STR 0.125% (NaHypochlorite) 473 ML TOPICAL SOL TOP SCH (11:06)
[2022-05-19 13:00] VITALS: BP 144/86
[2022-05-19 17:00] VITALS: BP 154/87
[2022-05-19 20:00] VITALS: BP 149/89
[2022-05-19 22:00] VITALS: BP 149/89
[2022-05-20] MEDS: AMPICILLIN & SULBACTAM SODIUM 3 GM in SODIUM CHL 0.9% 100 ML IV SCH ×2 (04:03→12:08)
[2022-05-20 05:00] VITALS: BP 146/88
[2022-05-20] MEDS: ENOXAPARIN SOD 100 MG/1 ML SYRINGE SC SCH (05:25)
[2022-05-20] MEDS: InsuLIN REG 1unit/0.01ml Soln (100units/ml) SC SCH ×2 (05:25→12:00)
[2022-05-20] MEDS: ACCU-CHEK COMFORT CURVE STRIP VI SCH ×2 (05:30→12:00)
[2022-05-20 08:30] VITALS: BP 127/78
[2022-05-20] MEDS: PANTOPRAZOLE 40 MG TAB PO SCH (09:43)
[2022-05-20] MEDS ORDERED: AUG875T PO (10:01)
[2022-05-20] MEDS ORDERED: APIX5TAB PO (10:01)
[2022-05-20] MEDS: DAKINS QUARTER STR 0.125% (NaHypochlorite) 473 ML TOPICAL SOL TOP SCH (10:30)
[2022-05-20 12:30] VITALS: BP 154/89
== END 2022-05-20 14:23 | disposition home health service (06) | DRG 721 ==
LOC: ER 15:16 → OVERFLOW 21:09 → WEST WING 05-18 09:22
PROVIDERS: ADMIT Nurse Practitioner; ATTEND Nurse Practitioner Acute Care
DX: T80.219A Unspecified infection due to central venous catheter, initial encounter (principal); I82.622 Acute embolism and thrombosis of deep veins of left upper extremity; E11.21 Type 2 diabetes mellitus with diabetic nephropathy; E11.42 Type 2 diabetes mellitus with diabetic polyneuropathy; M86.9 Osteomyelitis, unspecified; S91.301A Unspecified open wound, right foot, initial encounter; S91.302A Unspecified open wound, left foot, initial encounter; L03.114 Cellulitis of left upper limb; E11.69 Type 2 diabetes mellitus with other specified complication; E66.9 Obesity, unspecified; Y84.8 Other medical procedures as the cause of abnormal reaction of the patient, or of later complication, without mention of misadventure at the time of the procedure; M21.379 Foot drop, unspecified foot; Z68.34 Body mass index [BMI] 34.0-34.9, adult; Y92.89 Other specified places as the place of occurrence of the external cause; Z82.49 Family history of ischemic heart disease and other diseases of the circulatory system; Z83.3 Family history of diabetes mellitus; Z88.0 Allergy status to penicillin
CPT/HCPCS: 36415; 80048; 80053; 82962; 83036; 83605; 85025; 87040; 87070; 87205; 87426; 93971; 96361; 96365; G0378; J1815

== ENCOUNTER 2022-12-01 11:25 | Emergency (ER) | payer MEDICAID ==
[~2022-12-01] VITALS: Ht 165.1 cm; Wt 90.9 kg
[~2022-12-01 11:25] MED LIST changes: +AUG875T PO
[2022-12-01 12:00] LABS: Basophils % (auto) 0.5 % (0.0-2.0); Eosinophils # (auto) 0.2 10 ^3/uL (0-0.8); Monocytes # (auto) 0.5 10 ^3/uL (0-1.3)
[2022-12-01 12:03] LABS: Basophils # (auto) 0 10 ^3/uL (0-0.2); Eosinophils % (auto) 2.1 % (0.0-7.0); Hematocrit 27.7 % (36.0-46.0); Hemoglobin 8.9 g/dL (12.2-16.2); Mean Corpuscular Hemoglobin 24.4 pg (28.0-32.0); Mean Corpuscular Hgb Conc. 32.1 g/dL (32.0-36.0); Mean Corpuscular Volume 76.1 fL (80.0-100.0); Monocytes % (auto) 4.8 % (0.0-12.0); Neutrophils # (auto) 6.9 10 ^3/uL (1.6-8.6); Neutrophils % (auto) 71.6 % (37.0-80.0); Red Blood Cells 3.64 10^6/uL (4.0-5.20); Red Cell Distribution Width 15.2 % (11.8-14.3); White Blood Cell 9.7 10^3/uL (4.4-10.8)
[2022-12-01 12:24] LABS: Albumin 4.2 g/dL (3.2-4.8); Alkaline Phosphatase 105 U/L (46-116); Anion Gap 6 (5-15); Aspartate Aminotransferase < 8 U/L (13-40); BUN/Creatinine Ratio 20.6 (10.0-20.0); Bilirubin, Total 0.3 mg/dL (0.2-1.0); Blood Urea Nitrogen 27 mg/dL (9-23); Carbon Dioxide 21 mmol/L (20-30); Chloride 111 mmol/L (98-107); Glucose 198 mg/dL (74-106); Potassium 5.2 mmol/L (3.5-5.1); Sodium 138 mmol/L (136-145); Total Protein 7.1 g/dL (5.7-8.2)
[2022-12-01 12:33] LABS: Alanine Aminotransferase < 9 U/L (7-40)
[2022-12-01] MEDS ORDERED: CALCIUM GLUC 1,000mg/50ml-NS 50 ML IV ONE ×2 (13:15→13:51)
[2022-12-01] MEDS ORDERED: SODIUM BICARBONATE 8.4 % INJ 50ML VIAL IV ONE (13:15)
[2022-12-01] MEDS ORDERED: SODIUM BICARBONATE 8.4% INJ 50ML SYRINGE ONE (13:45)
[2022-12-01 14:15] VITALS: BP 144/78
[2022-12-01 14:23] VITALS: PULSE 93; RESP 17; O2SAT 97
== END 2022-12-01 15:04 | disposition home or self-care (01) ==
LOC: ER 11:25
DX: E87.5 Hyperkalemia (principal); D64.9 Anemia, unspecified; E11.9 Type 2 diabetes mellitus without complications; Z88.0 Allergy status to penicillin
CPT/HCPCS: 36415; 80053; 85025; 96365; 96375; 99284; J0610

== ENCOUNTER 2023-01-25 16:54 | Emergency (ER) | payer MEDICAID ==
[~2023-01-25] VITALS: Ht 165.1 cm; Wt 97.7 kg
[2023-01-25 18:10] LABS: Basophils # (auto) 0.1 10 ^3/uL (0-0.2); Hemoglobin 8.7 g/dL (12.2-16.2); Lymphocytes # (auto) 2.2 10 ^3/uL (0.4-5.4); Red Blood Cells 3.65 10^6/uL (4.0-5.20)
[2023-01-25 18:12] LABS: Basophils % (auto) 0.6 % (0.0-2.0); Eosinophils # (auto) 0.2 10 ^3/uL (0-0.8); Eosinophils % (auto) 1.5 % (0.0-7.0); Hematocrit 28.3 % (36.0-46.0); Mean Corpuscular Hgb Conc. 30.9 g/dL (32.0-36.0); Mean Corpuscular Volume 77.5 fL (80.0-100.0); Monocytes # (auto) 0.4 10 ^3/uL (0-1.3); Monocytes % (auto) 3.9 % (0.0-12.0); Neutrophils # (auto) 8.3 10 ^3/uL (1.6-8.6); White Blood Cell 11.2 10^3/uL (4.4-10.8)
[2023-01-25 18:32] LABS: Alanine Aminotransferase 11 U/L (7-40); Albumin 4.4 g/dL (3.2-4.8); Alkaline Phosphatase 116 U/L (46-116); Anion Gap 4 (5-15); Aspartate Aminotransferase < 8 U/L (13-40); BUN/Creatinine Ratio 23.4 (10.0-20.0); Blood Urea Nitrogen 29 mg/dL (9-23); Calcium 9.2 mg/dL (8.7-10.4); Carbon Dioxide 21 mmol/L (20-30); Chloride 114 mmol/L (98-107); Glucose 136 mg/dL (74-106); Sodium 139 mmol/L (136-145)
[2023-01-25 18:33] LABS: Bilirubin, Total 0.3 mg/dL (0.2-1.0); Total Protein 7.2 g/dL (5.7-8.2)
[2023-01-25 18:46] LABS: Potassium 5.9 mmol/L (3.5-5.1)
[2023-01-25] MEDS ORDERED: ALBUTEROL SULF 2.5 MG/0.5ML(0.5%) NEB SOLN NEB ONE (19:00)
[2023-01-25] MEDS ORDERED: DEXTROSE (50%) 50ML SYRG IV ONE (19:00)
[2023-01-25] MEDS ORDERED: InsuLIN REG 1unit/0.01ml Soln (100units/ml) IV ONE (19:00)
[2023-01-25 19:21] LABS: Urine Bacteria FEW /hpf (None Seen); Urine Blood Negative /uL (Negative); Urine Clarity Clear (Clear); Urine Color Colorless (Yellow); Urine Protein, UAD 2+ (Negative); Urine Specific Gravity 1.018 (1.001-1.035); Urine Urobilinogen Normal (Negative); Urine WBC <1 /hpf (0 - 5)
[2023-01-26 00:21] VITALS: BP 124/60; PULSE 113; RESP 18; TEMP 98.3; O2SAT 99
== END 2023-01-25 22:09 | disposition home or self-care (01) ==
LOC: ER 16:54
DX: E87.5 Hyperkalemia (principal); E11.9 Type 2 diabetes mellitus without complications; Z88.0 Allergy status to penicillin; Z88.1 Allergy status to other antibiotic agents
CPT/HCPCS: 36415; 80053; 81001; 84132; 85025; 93005; 94640; 96374; 96375; 99284; J1815; J7042

== ENCOUNTER 2023-07-25 10:08 | Emergency (ER) | payer MEDICARE, MEDICAID ==
[~2023-07-25] VITALS: Ht 165.1 cm; Wt 97.7 kg
[2023-07-25] MEDS: DexAMETHasone SOD PHOS 10MG/1ML VIAL INJ IM ONE (11:20)
[2023-07-25] MEDS: diphenhdrAMINE HCL 50 MG/1 ML VL IM ONE (11:20)
[2023-07-25] MEDS ORDERED: DIPH25CA66 PO (13:27)
[2023-07-25] MEDS ORDERED: LORA10CA PO (13:27)
[2023-07-25] MEDS: LORATADINE 10 MG TAB PO ONE (14:29)
[2023-07-25 14:30] VITALS: BP 161/77; PULSE 89; RESP 20; TEMP 98.4; O2SAT 98
== END 2023-07-25 14:34 | disposition home or self-care (01) ==
LOC: ER 10:08
DX: T78.49XA Other allergy, initial encounter (principal); E11.9 Type 2 diabetes mellitus without complications; Z86.2 Personal history of diseases of the blood and blood-forming organs and certain disorders involving the immune mechanism; Z88.8 Allergy status to other drugs, medicaments and biological substances; Z88.0 Allergy status to penicillin; Z79.899 Other long term (current) drug therapy; X58.XXXA Exposure to other specified factors, initial encounter
CPT/HCPCS: 96372; 99284; J1100; J1200

== ENCOUNTER → 2024-03-16 | Outpatient (CLI) | payer MEDICARE, MEDICAID ==
[~2024-03-16] MED LIST changes: +DIPH25CA66 PO; +LORA10CA PO
== END | disposition home or self-care (01) ==
LOC: LAB 06:17
PROVIDERS: ATTEND Podiatrist
DX: E11.621 Type 2 diabetes mellitus with foot ulcer (principal); L97.519 Non-pressure chronic ulcer of other part of right foot with unspecified severity
CPT/HCPCS: 87205

== ENCOUNTER → 2024-04-03 | Outpatient (CLI) | payer MEDICARE, MEDICAID ==
[2024-04-03 15:19] LABS: Basophils # (auto) 0.1 10 ^3/uL (0-0.2); Eosinophils # (auto) 0.1 10 ^3/uL (0-0.8); Hemoglobin 8.1 g/dL (12.2-16.2); Lymphocytes # (auto) 1.8 10 ^3/uL (0.4-5.4); Mean Corpuscular Volume 74.5 fL (80.0-100.0); Monocytes # (auto) 0.3 10 ^3/uL (0-1.3); Neutrophils # (auto) 5.4 10 ^3/uL (1.6-8.6); White Blood Cell 7.7 10^3/uL (4.4-10.8)
[2024-04-03 15:21] LABS: Basophils % (auto) 0.8 % (0.0-2.0); Eosinophils % (auto) 1.5 % (0.0-7.0); Lymphocytes % (auto) 22.8 % (10.0-50.0); Mean Corpuscular Hemoglobin 23.3 pg (28.0-32.0); Mean Corpuscular Hgb Conc. 31.3 g/dL (32.0-36.0); Monocytes % (auto) 4.4 % (0.0-12.0); Neutrophils % (auto) 70.5 % (37.0-80.0); Nucleated Red Blood Cells % 0.1 %; Platelet Count (auto) 291 10^3/uL (140-450); Red Blood Cells 3.49 10^6/uL (4.0-5.20); Red Cell Distribution Width 14.5 % (11.8-14.3)
[2024-04-03 15:50] LABS: Alanine Aminotransferase < 9 U/L (7-40); Albumin 4.1 g/dL (3.2-4.8); Alkaline Phosphatase 79 U/L (46-116); Anion Gap 8 (5-15); Aspartate Aminotransferase < 8 U/L (13-40); BUN/Creatinine Ratio 23.5 (10.0-20.0); Bilirubin, Total 0.4 mg/dL (0.2-1.0); Blood Urea Nitrogen 38 mg/dL (9-23); Calcium 9.5 mg/dL (8.7-10.4); Carbon Dioxide 20 mmol/L (20-31); Chloride 114 mmol/L (98-107); Glucose 117 mg/dL (74-106); Potassium 5.3 mmol/L (3.5-5.1); Sodium 142 mmol/L (136-145); Total Protein 6.5 g/dL (5.7-8.2)
== END | disposition home or self-care (01) ==
LOC: LAB 14:30
PROVIDERS: ATTEND Podiatrist
DX: E11.621 Type 2 diabetes mellitus with foot ulcer (principal)
CPT/HCPCS: 36415; 80053; 83036; 85025

== ENCOUNTER 2024-09-20 16:04 | Inpatient (IN) | payer MEDICARE, MEDICAID ==
[~2024-09-20] VITALS: Ht 165.1 cm; Wt 106.0 kg
--- NOTE | 2024-09-20 16:49 | ED.PDOC ---
Musculoskeletal HPI Comments A 33-YEAR-OLD FEMALE PRESENTS WITH A CHIEF COMPLAINT OF WOUND TO LEFT PLANTAR FOOT AND SWELLING OF LEFT LOWER LEG. PATIENT STATES THAT SHE HAS A HISTORY OF DIABETES AND HAS A WOUND TO HER LEFT PLANTAR FOOT FOR DAYS. YESTERDAY, SHE STARTED HAVING LEFT LOWER LEG SWELLING, MILD REDNESS AND WARMTH TO THE TOUCH. PATIENT NOTES WALKING INCREASES HER LEFT LOWER EXTREMITY PAIN. PATIENT REPORTS SHE CALLED HER RECEPTIONIST DOCTOR'S OFFICE AND STATES THAT HE WAS IN SURGERY SO HE REFERRED PATIENT TO COME INTO THE ER TO BE EVALUATED FOR POSSIBLE ADMISSION. PT DENIES FEVER, SOB, CHEST PAIN, NAUSEA, VOMITING AND OTHER COMPLAINTS. NO OTHER SYMPTOMS REPORTED AT THIS TIME OF CARE. Chief Complaint: Lower Extremity Time Seen by MD: 16:35 Primary Care Provider: SANTIAGO Motley Notes: Nurses Notes, Medications, Allergies Allergies: Coded Allergies: Nafcillin (Verified Allergy, Severe, 01/25/23) Urticaria Amoxicillin (Verified Allergy, Unknown, 01/25/23) Penicillins (Verified Allergy, Unknown, 01/25/23) RASH Interview date: 04/09/2022 Patient reported itching with small bumps at chest area when taking PCNs drug class ( IV route) in 2020. There was no swelling , no SOB, no SJS at that time. Patient reported has never re-challenge with PCNs drug class or CEPHs so far. Home Meds Reported Medications Insulin Glargine (Lantus) 100 Unit/Ml Inj, 18 UNIT SC BID, INJ 11/10/20 Information Source: Patient Mode of Arrival: Wheelchair Location: Left Extremity Location: Foot, Leg Timing: Days Prehospital treatment: None Severity: Moderate Able to Move Extremity: Yes Bear Weight: No Pain: Moderate Hand Dominance: Right Mechanism: Spontaneous Circumstances: Spontaneous Onset of Symptoms: Spontaneous Symptoms: Swelling, Pain, Erythema, Warmth DVT Risk Factors: NONE Last Tetanus: UTD Associated signs and symptoms: Leg pain Past Medical History PAST MEDICAL HISTORY: Anemia, DM Surgical History: Denies all surgeries LOGISTICS SYSTEM ENGINEER History: No Pertinent LOGISTICS SYSTEM ENGINEER History Family History Family History: Reviewed,noncontributory to illness, Family hx of DM, Family hx of HTN Social History Smoker: Non-Smoker Alcohol: Denies ETOH Use Drugs: Denies Drug Use Lives In: Home Constitutional: denies: chills, diaphoresis, fatigue, fever, malaise, sweats, weakness, others EENTM: denies: blurred vision, double vision, ear bleeding, ear discharge, ear drainage, ear pain, ear ringing, eye pain, eye redness, hearing loss, mouth pain, mouth swelling, nasal discharge, nose bleeding, nose congestion, nose pain, photophobia, tearing, throat pain, throat swelling, voice changes, others Respiratory: denies: cough, hemoptysis, orthopnea, SOB at rest, shortness of breath, SOB with excertion, stridor, wheezing, others Cardiovascular: denies: chest pain, dizzy spells, diaphoresis, Dyspnea on exertion, edema, irregular heart beat, left arm pain, lightheadedness, palpitations, PND, syncope, others Gastrointestinal: denies: abdomen distended, abdominal pain, blood streaked bowels, constipated, diarrhea, dysphagia, difficulty swallowing, hematemesis, melena, nausea, poor appetite, poor fluid intake, rectal bleeding, rectal pain, vomiting, others Genitourinary: denies: abnormal vagina bleeding, burning, dyspareunia, dysuria, flank pain, frequency, hematuria, incontinence, pain, , vagina discharge, urgency, others Neurological: denies: dizziness, fainting, headache, left sided numbness, left sided weakness, numbness, paresthesia, pre-existing deficit, right sided numbness, right sided weakness, seizure, speech problems, tingling, tremors, weakness, others Musculoskeletal: denies: back pain, gout, joint pain, joint swelling, muscle pain, muscle stiffness, neck pain, others Integumetry: reports: lesions, wounds; denies: bruises, change in color, change in hair/nails, dryness, laceration, lumps, rash, others Allergic/Immunocompromised: denies: Difficulty Healing, Frequent Infections, Hives, Itching, others Hematologic/Lymphatic: denies: anemia, blood clots, easy bleeding, easy bruising, swollen glands, others Endocrine: denies: excessive hunger, excessive sweating, excessive thirst, excessive urination, flushing, intolerance to cold, intolerance to heat, unexplained weight gain, unexplained weight loss, others Psychiatric: denies: anxiety, bipolar disorder, depression, hopeless, panic disorder, schizophrenia, sleepless, suicidal, others All Other Systems: Reviewed and Negative Physical Exam General Appearance: No Apparent Distress, Obese HEENT: Normal ENT Inspection, PERRL/EOMI, Pharynx Normal, TMs Normal Neck: Full Range of Motion, Non-Tender, Normal, Normal Inspection Respiratory: Chest Non-Tender, Lungs Clear, No Accessory Muscle Use, No Respiratory Distress, Normal Breath Sounds Cardiovascular: No Edema, No JVD, No Murmur, No Gallop, Normal Peripheral Pulses, Regular Rate/Rhythm Breast Exam: Deferred Gastrointestinal: No Organomegaly, Non Tender, No Pulsatile Mass, Normal Bowel Sounds, Soft Genitalia: Deferred Pelvic: Deferred Rectal: Deferred Extremities: Calf tenderness, Decreased range of motion, Inflammation, Leg edema, Normal capillary refill, No pedal edema, Swelling (AND TENDERNESS WITH MILD REDNESS ON LEFT LOWER LEG. ), Tender (WITH SWELLING AND MILD ERYTHEMA ON LEFT LOWER LEG. ) Musculoskeletal : Apperance: Normal Neurologic: Alert, photo offset printer II-XII nml as Tested, No Motor Deficits, Normal Affect, Normal Mood, No Sensory Deficits Cerebellar Function: Normal Reflexes: Normal Skin: Dry, Warm, Wounds (LOCALIZED REDNESS AND OPEN WOUND WITH MILD YELLOW DRAINAGE ON LEFT PLANTAR FOOT, DM ULCER. ) Peripheral Pulses: 2+ carotid (R), 2+ carotid (L), 2+ dorsalis pedis (R), 2+ dorsalis pedis (L) Lymphatic: No Adenopathy Was a procedure done? Was a procedure done?: No Differential Diagnosis EXT Differential Diagnosis: Cellulitis, Deep Vein Thrombosis, Bursitis, Other (DM FOOT ULCER OF LEFT FOOT ) X-Ray, Labs, Meds, VS Vital Signs Date Time Temp Pulse Resp B/P (MAP) Pulse Ox O2 Delivery O2 Flow Rate FiO2 09/20/24 18:19 98.3 94 16 142/79 (100) 97 98.3 09/20/24 16:08 98.9 107 15 150/72 97 98.9 Lab Test 09/20/24 17:05 Range/Units White Blood Count 8.9 4.4-10.8 10^3/uL Red Blood Count 3.25 L 4.0-5.20 10^6/uL Hemoglobin 7.6 L 12.2-16.2 g/dL Hematocrit 23.8 L 36.0-46.0 % Mean Corpuscular Volume 73.2 L 80.0-100.0 fL Mean Corpuscular Hemoglobin 23.3 L 28.0-32.0 pg Mean Corpuscular Hemoglobin Concent 31.9 L 32.0-36.0 g/dL Red Cell Distribution Width 16.1 H 11.8-14.3 % Platelet Count 276 140-450 10^3/uL Mean Platelet Volume 8.3 6.9-10.8 fL Neutrophils (%) (Auto) 70.3 37.0-80.0 % Lymphocytes (%) (Auto) 21.8 10.0-50.0 % Monocytes (%) (Auto) 5.6 0.0-12.0 % Eosinophils (%) (Auto) 1.8 0.0-7.0 % Basophils (%) (Auto) 0.5 0.0-2.0 % Neutrophils # (Auto) 6.3 1.6-8.6 10 ^3/uL Lymphocytes # (Auto) 1.9 0.4-5.4 10 ^3/uL Monocytes # (Auto) 0.5 0-1.3 10 ^3/uL Eosinophils # (Auto) 0.2 0-0.8 10 ^3/uL Basophils # (Auto) 0 0-0.2 10 ^3/uL Nucleated Red Blood Cells 0.1 % Sodium Level 139 136-145 mmol/L Potassium Level 4.2 3.5-5.1 mmol/L Chloride Level 111 H 98-107 mmol/L Carbon Dioxide Level 19 L 20-31 mmol/L Anion Gap 9 5-15 Blood Urea Nitrogen 47 H 9-23 mg/dL Creatinine 2.77 H 0.550-1.02 mg/dL Glomerular Filtration Rate Calc 23 >90 mL/min BUN/Creatinine Ratio 17.0 10.0-20.0 Serum Glucose 146 H 74-106 mg/dL Lactic Acid Level 1.0 0.4-2.0 mmol/L Calcium Level 8.3 L 8.7-10.4 mg/dL Iron Level 13 L 50-170 ug/dL Total Iron Binding Capacity 265 250-425 ug/dL Percent Iron Saturation 4.9 L 15-50 % Current Medications Medications (Trade) Dose Ordered Sig/Marcia Route Start Time Stop Time Status Last Admin Ceftriaxone Sodium 50 ml @ 100 mls/hr ONCE ONCE IV 09/20/24 18:00 09/20/24 18:29 DC 09/20/24 18:43 Clindamycin Phosphate 50 ml @ 50 mls/hr ONCE ONCE IV 09/20/24 18:00 09/20/24 18:59 DC 09/20/24 18:43 PATIENT: TAI TORRES: [id number]: [id number] : 1990 LOC: ER ROOM / BED: / AGE / SEX: 33 / F ADM STATUS: REG ER SERVICE 1641 ORDERING PHYSICIAN: EVA KAUFFMAN PROCEDURE(s): LLDVT - LT Lower DVT REASON: LEFT LOWER LEG SWELLING AND HOT ORDER NUMBER(s): [id number], ACCESSION NUMBER(s): [id number] Left lower extremity venous duplex Clinical History: LEFT LOWER LEG SWELLING AND HOT Comparison: US LT UPPER DVT on DOS: 05/18/22, US BI LAT UPPER DVT on DOS: 04/10/22, RT UPPER DVT on DOS: 02/12/21 Technique: Duplex Doppler evaluation of the deep venous system of the left lower extremity from the common femoral vein to the popliteal vein including color Doppler and s pectral/pulsed waveform analysis was performed. Findings: The common femoral vein demonstrates appropriate compressibility and waveform variability. There is compressibility/patency of the great saphenous vein at the proximal thigh. The femoral vein demonstrates appropriate compressibility and waveform variability. The deep femoral vein demonstrates appropriate compressibility and waveform variability. The popliteal vein demonstrates appropriate compressibility and waveform variability. There is normal compressibility at the tibioperoneal trunk. Impression: 1. No left femoropopliteal venous thrombosis. ATED BY: YANIRA STEINBERG MD DICTATED DATE/TIME: 09/20/241730 SIGNED BY: YANIRA STEINBERG MD SIGNED DATE/TIME: 09/20/241730 X-Ray, Labs, Meds, VS Comment EXTERNAL MEDICAL RECORDS REVIEWED: [NONE] INDEPENDENT HISTORIANS: [NONE] SOCIAL DETERMINANTS OF HEALTH: [NONE] LABS ORDERED: BLOOD CULTURES, WOUND CULTURE, LACTIC ACID, BMP, CBC REVIEWED AND INTERPRETED RESULTS: HGB 7.9, CO2 19.0 IMAGING ORDERED: DVT ULTRASOUND TREATMENTS ORDERED: ROCEPHIN 1GM IVPB, CLINDAMYCIN 900MG IVP PROCEDURES PERFORMED: NONE CRITICAL CARE TIME: NONE I HAVE DISCUSSED THE PATIENT WITH THE ATTENDING PHYSICIAN DR. PLUNKETT AND HE AGREES WITH THE PATIENT'S PLAN OF CARE AND DISPOSITION. UPON PHYSICAL EXAMINATION, THE PATIENT'S LEFT LOWER LEG WAS SWOLLEN, WITH MILD REDNESS AND HEAT TO THE TOUCH, A LEFT PLANTAR FOOT WOUND WITH PUS DRAINAGE WAS NOTED. DUE TO THE PATIENT'S MEDICAL HISTORY, LAB RESULTS, AND CONDITION I HAVE DETERMINED THE PATIENT SHOULD BE ADMITTED FOR FURTHER TREATMENT AND EVALUATION. THE ON-CALL HOSPITALIST WILL BE CONTACTED FOR ADMISSION OF THIS PATIENT. Images Reviewed?: Images reviewed and evaluated by me Time of 1ST Reevaluation: 17:05 Reevaluation 1ST: Unchanged Patient Education/Counseling: Diagnosis, Treatment, Need For Follow Up Family Education/Counseling: Diagnosis, Treatment, Need For Follow Up Sepsis Sepsis Reasesment Focused Exam Orders: Laboratory Tests 09/20/24 17:05: Lactic Acid Level 1.0 Departure 1 Departure Time of Disposition: 18:30 Impression: Primary Impression: Diabetic infection of left foot Additional Impressions: Soft tissue infection Anemia Qualified Codes: D50.9 - Iron deficiency anemia, unspecified Chronic kidney disease Qualified Codes: N18.4 - Chronic kidney disease, stage 4 (severe) Disposition: 09 ADMITTED INPATIENT Admit to: Med Surg Condition: Serious Critical Care Note Critical Care Time?: No Stability Stability form required: Yes Unstable for transfer: Requires medication, ED Physician Assesment, Possible rapid decline Heart Score Heart Score: Heart Score Response (Comments) Value History N/A 0 EKG N/A 0 Age N/A 0 Risk Factors N/A 0 Troponin N/A 0 Total 0 I personally scribed for DALY,YINXIA PA ([email or web address]) on 09/20/24 at 16:49. Electronically submitted by Pritesh Gonzalez ([email or web address]). I personally scribed for DALY,YINXIA PA ([email or web address]) on 09/20/24 at 17:23. Electronically submitted by Pritesh Gonzalez ([email or web address]). I personally scribed for DALY,YINXIA PA ([email or web address]) on 09/20/24 at 17:35. Electronically submitted by Pritesh Gonzalez ([email or web address]). I personally scribed for DALY,YINXIA PA ([email or web address]) on 09/20/24 at 17:45. Electronically submitted by Pritesh Gonzalez ([email or web address]). I personally scribed for ALINA PLUNKETT MD ([email or web address]) on 09/21/24 at 06:40. Electronically submitted by José Luis Jung ([email or web address]). EVA KAUFFMAN Sep 20, 2024 16:49 ALINA PLUNKETT MD Sep 21, 2024 06:40
[2024-09-20 17:23] LABS: Hematocrit 23.8 % (36.0-46.0); Hemoglobin 7.6 g/dL (12.2-16.2); Mean Corpuscular Hemoglobin 23.3 pg (28.0-32.0); Mean Corpuscular Volume 73.2 fL (80.0-100.0); Nucleated Red Blood Cells % 0.1 %
[2024-09-20 17:25] LABS: Potassium 4.2 mmol/L (3.5-5.1); Sodium 139 mmol/L (136-145)
[2024-09-20 17:26] LABS: Anion Gap 9 (5-15)
[2024-09-20 17:31] LABS: BUN/Creatinine Ratio 17.0 (10.0-20.0)
[2024-09-20 17:33] LABS: Blood Urea Nitrogen 47 mg/dL (9-23); Calcium 8.3 mg/dL (8.7-10.4); Carbon Dioxide 19 mmol/L (20-31); Chloride 111 mmol/L (98-107); Glucose 146 mg/dL (74-106)
--- NOTE | 2024-09-20 17:33 | DVH ---
Left lower extremity venous duplex Clinical History: LEFT LOWER LEG SWELLING AND HOT Comparison: US LT UPPER DVT on DOS: 05/18/22, US BI LAT UPPER DVT on DOS: 04/10/22, RT UPPER DVT on DOS: 02/12/21 Technique: Duplex Doppler evaluation of the deep venous system of the left lower extremity from the common femor al vein to the popliteal vein including color Doppler and spectral/pulsed waveform analysis was perfo rmed. Findings: The common femoral vein demonstrates appropriate compressibility and waveform variability. There is compressibility/patency of the great saphenous vein at the proximal thigh. The femoral vein demonstrates appropriate compressibility and waveform variability. The deep femoral vein demonstrates appropriate compressibility and waveform variability. The popliteal vein demonstrates appropriate compressibility and waveform variability. There is normal compressibility at the tibioperoneal trunk. Impression: 1. No left femoropopliteal venous thrombosis.
[2024-09-20] MEDS: cefTRIAXone 1GM/50ML D5W 50 ML IV ONE (18:43)
[2024-09-20] MEDS: CLINDAMYCIN 900MG IV 50 ML IV ONE (18:43)
[2024-09-20] MEDS ORDERED: HYDROcodone-ACET 5/325MG TAB PO PRN (22:00)
[2024-09-20] MEDS ORDERED: ONDANSETRON HCL 4 MG/2 ML VIAL IV PRN (22:00)
[2024-09-20] MEDS ORDERED: ACETAMINOPHEN 325 MG TAB PO PRN (22:00)
[2024-09-20] MEDS ORDERED: DEXTROSE (50%) 50ML SYRG IV PRN (22:00)
--- NOTE | 2024-09-20 22:05 | DVHHP2 ---
History of Present Illness Reason for Visit: Left lower extremity pain History of Present Illness 33-year-old female presents for evaluation of possible left lower extremity infected diabetic ulcer. Patient reports noticing a diabetic ulcer her left foot which has been causing pain over the past couple of days and she has also noticed redness to her foot. Denies fever or chills. No other acute complaints. Past Medical History Thyroid, chronic kidney disease, anemia, diabetes mellitus Past Surgical History Toe amputation Family History Noncontributory Smoke: No ALCOHOL: none Drugs: None Lives: with Family Review of Systems Review of Systems Review of systems are currently negative otherwise address in the HPI. Allergies: Coded Allergies: Nafcillin (Verified Allergy, Severe, 01/25/23) Urticaria Amoxicillin (Verified Allergy, Unknown, 01/25/23) Penicillins (Verified Allergy, Unknown, 01/25/23) RASH Interview date: 04/09/2022 Patient reported itching with small bumps at chest area when taking PCNs drug class ( IV route) in 2020. There was no swelling , no SOB, no SJS at that time. Patient reported has never re-challenge with PCNs drug class or CEPHs so far. Exam Vital Signs Vital Signs Date Time Temp Pulse Resp B/P (MAP) Pulse Ox O2 Delivery O2 Flow Rate FiO2 09/20/24 18:19 98.3 94 16 142/79 (100) 97 98.3 Exam Gen: 33-year-old female in mild distress Skin: Warm, dry, normal color and texture, no rash. HEENT: Normocephalic atraumatic, mucous membranes moist and pink. Neck: Cervical and supraclavicular nodes normal without enlargement, trachea is midline, thyroid gland is normal without masses. Pulmonary: Clear to auscultation and percussion bilaterally. Cardiac: Regular rate and rhythm. No murmur Abdomen: Soft, nontender, nondistended, bowel sounds present all 4 quadrants, no guarding, no rigidity, no organomegaly. Extremities: No cyanosis, clubbing, left foot diabetic ulcer Neuro: Cranial nerves II through XII grossly intact, normal affect and speech, no focal motor deficits. Labs/Xrays ORDERING PHYSICIAN: EVA KAUFFMAN PROCEDURE(s): LLDVT - LT Lower DVT REASON: LEFT LOWER LEG SWELLING AND HOT ORDER NUMBER(s): [id number], ACCESSION NUMBER(s): [id number] Left lower extremity venous duplex Clinical History: LEFT LOWER LEG SWELLING AND HOT Comparison: US LT UPPER DVT on DOS: 05/18/22, US BI LAT UPPER DVT on DOS: 04/10/22, RT UPPER DVT on DOS: 02/12/21 Technique: Duplex Doppler evaluation of the deep venous system of the left lower extremity from the common femoral vein to the popliteal vein including color Doppler and spectral/pulsed waveform analysis was performed. Findings: The common femoral vein demonstrates appropriate compressibility and waveform variability. There is compressibility/patency of the great saphenous vein at the proximal thigh. The femoral vein demonstrates appropriate compressibility and waveform variability. The deep femoral vein demonstrates appropriate compressibility and waveform variability. The popliteal vein demonstrates appropriate compressibility and waveform variability. There is normal compressibility at the tibioperoneal trunk. Impression: 1. No left femoropopliteal venous thrombosis. Labs Test 09/20/24 17:05 Range/Units White Blood Count 8.9 4.4-10.8 10^3/uL Red Blood Count 3.25 L 4.0-5.20 10^6/uL Hemoglobin 7.6 L 12.2-16.2 g/dL Hematocrit 23.8 L 36.0-46.0 % Mean Corpuscular Volume 73.2 L 80.0-100.0 fL Mean Corpuscular Hemoglobin 23.3 L 28.0-32.0 pg Mean Corpuscular Hemoglobin Concent 31.9 L 32.0-36.0 g/dL Red Cell Distribution Width 16.1 H 11.8-14.3 % Platelet Count 276 140-450 10^3/uL Mean Platelet Volume 8.3 6.9-10.8 fL Neutrophils (%) (Auto) 70.3 37.0-80.0 % Lymphocytes (%) (Auto) 21.8 10.0-50.0 % Monocytes (%) (Auto) 5.6 0.0-12.0 % Eosinophils (%) (Auto) 1.8 0.0-7.0 % Basophils (%) (Auto) 0.5 0.0-2.0 % Neutrophils # (Auto) 6.3 1.6-8.6 10 ^3/uL Lymphocytes # (Auto) 1.9 0.4-5.4 10 ^3/uL Monocytes # (Auto) 0.5 0-1.3 10 ^3/uL Eosinophils # (Auto) 0.2 0-0.8 10 ^3/uL Basophils # (Auto) 0 0-0.2 10 ^3/uL Nucleated Red Blood Cells 0.1 % Sodium Level 139 136-145 mmol/L Potassium Level 4.2 3.5-5.1 mmol/L Chloride Level 111 H 98-107 mmol/L Carbon Dioxide Level 19 L 20-31 mmol/L Anion Gap 9 5-15 Blood Urea Nitrogen 47 H 9-23 mg/dL Creatinine 2.77 H 0.550-1.02 mg/dL Glomerular Filtration Rate Calc 23 >90 mL/min BUN/Creatinine Ratio 17.0 10.0-20.0 Serum Glucose 146 H 74-106 mg/dL Lactic Acid Level 1.0 0.4-2.0 mmol/L Calcium Level 8.3 L 8.7-10.4 mg/dL SEPSIS Sepsis Screen Date sepsis recognized/suspect: Sep 20, 2024 Time Sepsis recognized/suspect: 1609 Recent Procedure: No On Antibiotic Therapy: No Respiratory Rate >20: No Heart Rate >90: Yes Temp<36 C (96.8 F) or >38.3 C: No SBP <90 or MAP <65 mmHG: No New Acute Mental Status Change: No Is the patient on CPAP, BIPAP,: No Physician Orders Wound Culture W/ Gs (09/20/24 16:41) Blood Culture (09/20/24 16:41) Lt Lower Dvt (09/20/24 16:41) Heplock Iv (09/20/24 ) Admit (09/20/24 19:57) *Podiatry Consult Fabrizio(Dvmg) (09/20/24 21:53) Apixaban (Eliquis) (09/20/24 22:00) Levothyroxine Tablet (Synthroid Tablet) (09/21/24 06:00) Iron Panel (09/20/24 21:53) *Dr. Ricardo Zambrano -[place] (09/20/24 21:53) Ceftriaxone Ivpb Rocephin (09/21/24 09:00) Clindamycin Ivpb Cleocin (09/20/24 22:00) Consistent Carb(Ccho)Diabetes (09/21/24 Breakfast) Glucose Blood (Accu-Chek Comfort Curve T (09/21/24 00:00) Mild Sliding Scale Npo - Q6hr (09/21/24 00:00) Dextrose 50% Syringe (09/20/24 22:00) Hydrocodone-Acet 5/325mg Tab ([place] 5/32 (09/20/24 22:00) Ondansetron Hcl (Zofran) (09/20/24 22:00) Vital Signs Date Time Temp Pulse Resp B/P (MAP) Pulse Ox O2 Delivery O2 Flow Rate FiO2 09/20/24 18:19 98.3 94 16 142/79 (100) 97 98.3 09/20/24 16:08 98.9 107 15 150/72 97 98.9 Laboratory Tests Test 09/20/24 17:05 Lactic Acid Level 1.0 mmol/L (0.4-2.0) White Blood Count 8.9 10^3/uL (4.4-10.8) Medications Medications Dose Ordered Sig/Marcia Route Start Time Stop Time Status Last Admin Dose Admin Ceftriaxone Sodium 50 ml @ 100 mls/hr ONCE ONCE IV 09/20/24 18:00 09/20/24 18:29 DC 09/20/24 18:43 100 MLS/HR Clindamycin Phosphate 50 ml @ 50 mls/hr ONCE ONCE IV 09/20/24 18:00 09/20/24 18:59 DC 09/20/24 18:43 50 MLS/HR Assessment/Plan Assessment/Plan Assessment Infected left foot diabetic ulcer Acute on chronic renal failure Diabetes mellitus Obesity Anemia of chronic disease Plan Admit the patient to [facility] to the hospitalist Nephrology consult Podiatry consult Iron panel pending Resume home medications Rocephin/clindamycin Continue treatment per orders. Plan discussed with: Patient My Orders Orders - DEDRICK MCKEON Procedure Category Date Status Time Admit ADMIT 09/20/24 Transmitted 19:57 *Podiatry Consult CONS 09/20/24 Verified Musson(Dvmg) 21:53 Apixaban (Eliquis) PHA 09/20/24 Verified 22:00 Levothyroxine Tablet PHA 09/21/24 Verified (Synthroid Tablet) 06:00 Iron Panel LAB 09/20/24 Verified 21:53 *[facility] CONS 09/20/24 Verified -[place] 21:53 Ceftriaxone Ivpb PHA 09/21/24 Verified Rocephin 09:00 Clindamycin Ivpb PHA 09/20/24 Verified Cleocin 22:00 Consistent DIET 09/21/24 Verified Carb(Ccho)Diabetes Breakfast Glucose Blood PHA 09/21/24 Verified (Accu-Chek Comfort 00:00 Mild Sliding Scale PHA 09/21/24 Verified Npo - Q6hr 00:00 Dextrose 50% Syringe PHA 09/20/24 Verified 22:00 Hydrocodone-Acet PHA 09/20/24 Verified 5/325mg Tab ([place] 22:00 Ondansetron Hcl PHA 09/20/24 Verified (Zofran) 22:00 Date of Service: Sep 20, 2024 Billing Provider: DEDRICK MCKEON Common Visit Codes: [id number] INP/OBS CARE (MOD) DEDRICK MCKEON Sep 20, 2024 22:05
[2024-09-20 23:10] VITALS: O2SAT 98
[2024-09-20] MEDS: ACCU-CHEK COMFORT CURVE STRIP VI SCH (23:19)
[2024-09-20] MEDS: APIXABAN 5 MG TAB PO SCH (23:24)
[2024-09-20] MEDS: InsuLIN REG 1unit/0.01ml Soln (100units/ml) SC SCH (23:28)
[2024-09-20 23:40] LABS: Iron 13.0 ug/dL (50-170); Total Iron Binding Capacity 265.0 ug/dL (250-425)
[2024-09-21] VITALS (12 sets, daily range): BP systolic 115–162; BP diastolic 62–87; PULSE 83–95; RESP 15–20; TEMP 97.9–98.6; O2SAT 95–99
[2024-09-21] MEDS: CLINDAMYCIN 600MG IV 50 ML IV SCH (02:53)
[2024-09-21] MEDS: LEVOTHYROXINE SODIUM 25 MCG TAB PO SCH (06:00)
[2024-09-21 06:06] LABS: Hematocrit 20.7 % (36.0-46.0); Mean Corpuscular Hemoglobin 24.1 pg (28.0-32.0); Mean Corpuscular Volume 72.9 fL (80.0-100.0); Nucleated Red Blood Cells % 0.0 %
[2024-09-21 06:12] LABS: Hemoglobin 6.9 g/dL (12.2-16.2)
[2024-09-21 06:30] LABS: Potassium 4.1 mmol/L (3.5-5.1); Sodium 140 mmol/L (136-145)
[2024-09-21 06:31] LABS: Anion Gap 9 (5-15)
[2024-09-21 06:36] LABS: BUN/Creatinine Ratio 16.2 (10.0-20.0)
[2024-09-21 06:43] LABS: Blood Urea Nitrogen 44 mg/dL (9-23); Calcium 7.9 mg/dL (8.7-10.4); Carbon Dioxide 20 mmol/L (20-31); Chloride 111 mmol/L (98-107); Glucose 154 mg/dL (74-106)
[2024-09-21 09:02] LABS: HDL Cholesterol 44 mg/dL (40-59)
[2024-09-21 09:07] LABS: Cholesterol 220 mg/dL (< 200); Triglycerides 200 mg/dL (< 150)
--- NOTE | 2024-09-21 09:12 | DVH ---
EXAM: XY CHEST XRAY 1 VIEW Indication: possible congestion Technique: Single frontal view of the chest was obtained Comparison: XY CHEST PORTABLE on DOS: 04/16/22, XY CHEST PORTABLE on DOS: 04/11/22, CHEST TWO VIEWS ROUTI NE on DOS: 03/26/21, CHEST PORTABLE on DOS: 01/18/21, CHEST XRAY 1 VIEW on DOS: 01/15/21 FINDINGS: Lines and Tubes: None Lungs: No focal consolidation. Pleura: No effusion. No pneumothorax. Cardiomediastinal contours: Unremarkable Bones: No acute osseous abnormality. IMPRESSION: No acute cardiopulmonary disease.
[2024-09-21 09:23] LABS: INR 0.99 (0.9-1.15); Partial Thromboplastin Time 31.4 SEC (24.5-34.5); Prothrombin Time 10.5 sec (9.3-11.8)
[2024-09-21] MEDS: cefTRIAXone 1GM/50ML D5W 50 ML IV SCH (09:29)
[2024-09-21 09:44] LABS: Beta HCG, Quantitative 0.7 mIU/mL (1.5-4.2)
[2024-09-21 11:13] LABS: Thyroid Stimulating Hormone 13.68 uIU/mL (0.55-4.78)
[2024-09-21 11:55] LABS: Alanine Aminotransferase 12 U/L (7-40); Albumin 3.6 g/dL (3.2-4.8); Alkaline Phosphatase 83 U/L (46-116); Total Protein 6.1 g/dL (5.7-8.2)
[2024-09-21 11:56] LABS: Bilirubin, Direct < 0.1 mg/dL (<0.3); Bilirubin, Total 0.2 mg/dL (0.2-1.0)
[2024-09-21] MEDS ORDERED: VANCOMYCIN PER PHARMACY 0 MG IV SCH (12:00)
[2024-09-21] MEDS: VANCOMYCIN 1GM/250ML KIT 250 ML IV ONE (13:21)
--- NOTE | 2024-09-21 16:05 | DVH ---
EXAM: MRI MRI L FOOT WO CONTRAST INDICATION: r/o OM TECHNIQUE: Multiplanar and multisequence MR imaging of the left ankle was performed in the absence of gadolinium contrast. COMPARISON: MRI MRI L FOOT WO CONTRAST on DOS: 04/08/22, CT CT L FOOT WO CONTRAST on DOS: 04/08/22, XY L ANKLE 3 VIEW on DOS: 04/07/22 FINDINGS: There are no destructive lesions of the bones of the foot. Trace joint effusion at the ankle joint. Subcutaneous edema is present. There is a skin ulcer along the lateral aspect of the foot No focal abscess. There is cellulitis in the plantar soft tissue structures. IMPRESSION: 1. No MR evidence of osteomyelitis. No focal abscess 2. Soft tissue swelling is present
--- NOTE | 2024-09-21 17:25 | DVHINCON2 ---
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 There was no swelling , no SOB, no SJS at that time. Patient reported has never re-challenge with PCNs drug class or CEPHs so far. Home Meds Reported Medications Insulin Glargine (Lantus) 100 Unit/Ml Inj, 18 UNIT SC BID, INJ 11/10/20 Current Medications Current Medications Medications (Trade) Dose Ordered Sig/Marcia Route PRN Reason Start Time Stop Time Status Last Admin Apixaban (Eliquis) 5 mg BID PO 09/20/24 22:00 09/21/24 10:10 DC 09/21/24 09:28 Levothyroxine Sodium (Synthroid Tablet) 25 mcg QAM@0600 PO 09/21/24 06:00 Ceftriaxone Sodium 50 ml @ 100 mls/hr DAILY@09 IV 09/21/24 09:00 09/21/24 09:29 Clindamycin Phosphate 50 ml @ 50 mls/hr Q8H IV 09/21/24 02:30 09/21/24 09:29 Diagnostic Test (Pha) (Accu-Chek Comfort Curve T) 1 strip Q6HR 09/21/24 00:00 09/21/24 11:58 Insulin Human Regular (InsuLIN R) Q6HR SC 09/21/24 00:00 09/21/24 11:59 Dextrose 50 ml UD PRN IV Blood Sugar LESS THAN 60 09/20/24 22:00 Acetaminophen/ Hydrocodone Bitart ([place] 5/325MG Tab) 1 tab Q4HP PRN PO MODERATE PAIN (4-6 PAIN SCALE) 09/20/24 22:00 Ondansetron HCl (Zofran) 4 mg Q4HP PRN IV NAUSEA / VOMITING 09/20/24 22:00 Acetaminophen (Tylenol Tablet) 650 mg Q6HP PRN PO PAIN SCALE 1-3 OR TEMP>100.4 09/20/24 22:00 Vancomycin HCl 0 ml @ 0 mls/hr UD IV 09/21/24 12:00 Meropenem 50 ml @ 17 mls/hr Q12HR IV 09/21/24 22:00 Future Hold Family History: Family history: Diabetes mellitus G8 MOTHER, Onset:Unknown Hypertension G8 MOTHER, Onset:Unknown GRANDMOTHER Hypertension G8 MOTHER, Onset:Unknown GRANDMOTHER Review of Systems As documented in HPI H&P Exam Vital Signs/I&O Vital Sign Date Time Temp Pulse Resp B/P (MAP) Pulse Ox O2 Delivery O2 Flow Rate FiO2 09/21/24 14:15 98.4 92 15 154/81 98.4 09/21/24 13:00 97 09/21/24 02:14 Room Air* 0 21 Intake and Output 09/20/24 09/21/24 19:00 07:00 Intake Total 100 ml Balance 100 ml Intake IV Total 100 ml Physical Exam General-not in any distress HEENT-normocephalic, no icterus, no pallor, neck supple Respiratory-fair air entry bilateral, no rhonchi, no wheeze [id number] heard, no murmurs appreciated Abdominal-soft, nontender, nondistended Musculoskeletal-left lower extremity edema, redness, no calf tenderness Genitourinary-deferred Neuro-awake alert oriented x3, Psychiatric-not agitated, cooperative, Labs/Diagnostic Data Labs/Diagnostic Data Laboratory Tests Test 09/21/24 11:30 09/21/24 06:28 09/21/24 05:10 09/20/24 23:18 Range/Units POC Glucose 166 H 150 H 206 H 70-106 mg/dl White Blood Count 8.0 4.4-10.8 10^3/uL Red Blood Count 2.84 L 4.0-5.20 10^6/uL Hemoglobin 6.9 *L 12.2-16.2 g/dL Hematocrit 20.7 #L 36.0-46.0 % Mean Corpuscular Volume 72.9 L 80.0-100.0 fL Mean Corpuscular Hemoglobin 24.1 L 28.0-32.0 pg Mean Corpuscular Hemoglobin Concent 33.1 32.0-36.0 g/dL Red Cell Distribution Width 16.1 H 11.8-14.3 % Platelet Count 263 140-450 10^3/uL Mean Platelet Volume 8.3 6.9-10.8 fL Neutrophils (%) (Auto) 68.9 37.0-80.0 % Lymphocytes (%) (Auto) 22.1 10.0-50.0 % Monocytes (%) (Auto) 6.0 0.0-12.0 % Eosinophils (%) (Auto) 2.4 0.0-7.0 % Basophils (%) (Auto) 0.6 0.0-2.0 % Neutrophils # (Auto) 5.5 1.6-8.6 10 ^3/uL Lymphocytes # (Auto) 1.8 0.4-5.4 10 ^3/uL Monocytes # (Auto) 0.5 0-1.3 10 ^3/uL Eosinophils # (Auto) 0.2 0-0.8 10 ^3/uL Basophils # (Auto) 0 0-0.2 10 ^3/uL Nucleated Red Blood Cells 0.0 % Reticulocyte Count (auto) 1.68 H 0.5-1.5 % Prothrombin Time 10.5 9.3-11.8 sec Prothrombin Time INR 0.99 0.9-1.15 Activated Partial Thromboplast Time 31.4 24.5-34.5 SEC Sodium Level 140 136-145 mmol/L Potassium Level 4.1 3.5-5.1 mmol/L Chloride Level 111 H 98-107 mmol/L Carbon Dioxide Level 20 20-31 mmol/L Anion Gap 9 5-15 Blood Urea Nitrogen 44 H 9-23 mg/dL Creatinine 2.71 H 0.550-1.02 mg/dL Glomerular Filtration Rate Calc 23 >90 mL/min BUN/Creatinine Ratio 16.2 10.0-20.0 Serum Glucose 154 H 74-106 mg/dL Calcium Level 7.9 L 8.7-10.4 mg/dL Ferritin 45.8 10-291 ng/mL Total Bilirubin 0.2 0.2-1.0 mg/dL Direct Bilirubin < 0.1 <0.3 mg/dL Aspartate Amino Transferase (AST) 11 L 13-40 U/L Alanine Aminotransferase (ALT) 12 7-40 U/L Alkaline Phosphatase 83 46-116 U/L B-Type Natriuretic Peptide 24.78 0-100 pg/mL Total Protein 6.1 5.7-8.2 g/dL Albumin 3.6 3.2-4.8 g/dL Triglycerides Level 200 H < 150 mg/dL Cholesterol Level 220 H < 200 mg/dL LDL Cholesterol 151 H < 100 mg/dL HDL Cholesterol 44 40-59 mg/dL Thyroid Stimulating Hormone (TSH) 13.68 H 0.55-4.78 uIU/mL Beta HCG, Quantitative 0.7 L 1.5-4.2 mIU/mL Test 09/20/24 17:05 Range/Units White Blood Count 8.9 4.4-10.8 10^3/uL Red Blood Count 3.25 L 4.0-5.20 10^6/uL Hemoglobin 7.6 L 12.2-16.2 g/dL Hematocrit 23.8 L 36.0-46.0 % Mean Corpuscular Volume 73.2 L 80.0-100.0 fL Mean Corpuscular Hemoglobin 23.3 L 28.0-32.0 pg Mean Corpuscular Hemoglobin Concent 31.9 L 32.0-36.0 g/dL Red Cell Distribution Width 16.1 H 11.8-14.3 % Platelet Count 276 140-450 10^3/uL Mean Platelet Volume 8.3 6.9-10.8 fL Neutrophils (%) (Auto) 70.3 37.0-80.0 % Lymphocytes (%) (Auto) 21.8 10.0-50.0 % Monocytes (%) (Auto) 5.6 0.0-12.0 % Eosinophils (%) (Auto) 1.8 0.0-7.0 % Basophils (%) (Auto) 0.5 0.0-2.0 % Neutrophils # (Auto) 6.3 1.6-8.6 10 ^3/uL Lymphocytes # (Auto) 1.9 0.4-5.4 10 ^3/uL Monocytes # (Auto) 0.5 0-1.3 10 ^3/uL Eosinophils # (Auto) 0.2 0-0.8 10 ^3/uL Basophils # (Auto) 0 0-0.2 10 ^3/uL Nucleated Red Blood Cells 0.1 % Sodium Level 139 136-145 mmol/L Potassium Level 4.2 3.5-5.1 mmol/L Chloride Level 111 H 98-107 mmol/L Carbon Dioxide Level 19 L 20-31 mmol/L Anion Gap 9 5-15 Blood Urea Nitrogen 47 H 9-23 mg/dL Creatinine 2.77 H 0.550-1.02 mg/dL Glomerular Filtration Rate Calc 23 >90 mL/min BUN/Creatinine Ratio 17.0 10.0-20.0 Serum Glucose 146 H 74-106 mg/dL Lactic Acid Level 1.0 0.4-2.0 mmol/L Calcium Level 8.3 L 8.7-10.4 mg/dL Iron Level 13 L 50-170 ug/dL Total Iron Binding Capacity 265 250-425 ug/dL Percent Iron Saturation 4.9 L 15-50 % Assessment Acute kidney injury on Chronic kidney disease IIIb multifactorial in the setting of lower extremity cellulitis, anemia low hemoglobin Cellulitis Iron deficiency anemia Type 2 diabetes 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 Thank you for allowing me to participate in the care of your patient. total time 80min Plan discussed with: Patient ARTURO BONDS MD Sep 21, 2024 17:25
[2024-09-21] MEDS: FERROUS SULFATE 325mg EC TAB PO SCH (17:40)
--- NOTE | 2024-09-21 19:32 | DVHPNRES ---
Progress Note Date Seen: Sep 21, 2024 Resident Creating Document: EDDIE BOCANEGRA RESIDENT Medical Necessity Reason Pt with a Central, PICC or Fol: No Subjective Review of Systems 33-year-old female With a history of chronic kidney disease, anemia, diabetes mellitus type 2 and hypothyroidismpresents for evaluation of possible left lower extremity infected diabetic ulcer. Patient reports that Wednesday 3 days ago, she had fever and chills and on Wednesday she woke up and felt that her feet was red hot and pus was oozing from her callus which was incised by Dr. Dinh 2 weeks ago. She reports that she missed his appointment that day due to fever and also forgot to take her Lantus injection which she takes twice a day. She checked her blood sugar which was 170 at home. Due to the oozing of her foot ulcer in the left leg she came to the emergency. No other acute complaints. Past Medical History hypothyroidism, chronic kidney disease, anemia, diabetes mellitus Past Surgical History Toe amputation Family History Noncontributory Smoke: No ALCOHOL: none Drugs: None Lives: with Family ROS: Patient was seen by me the holding area. She has no new complaints besides the swelling in her leg. MRI of the left leg was done which showed cellulitis. We consulted Podiatry and Dr. Dinh will be seeing her outpatient. We are treating her cellulitis with ceftriaxone, clindamycin, vancomycin. Objective vital signs Vital Sign Date Time Temp Pulse Resp B/P (MAP) Pulse Ox O2 Delivery O2 Flow Rate FiO2 09/21/24 17:00 98.1 88 17 156/80 (105) 97 98.1 09/21/24 02:14 Room Air* 0 21 Total Intake and Output 09/20/24 09/20/24 09/21/24 15:00 23:00 07:00 Intake Total 100 ml Balance 100 ml medications Current Medications Medications Dose Ordered Sig/Marcia Route Start Time Stop Time Status Last Admin Dose Admin Levothyroxine Sodium 25 mcg QAM@0600 PO 09/21/24 06:00 Ceftriaxone Sodium 50 ml @ 100 mls/hr DAILY@09 IV 09/21/24 09:00 09/21/24 09:29 100 MLS/HR Clindamycin Phosphate 50 ml @ 50 mls/hr Q8H IV 09/21/24 02:30 09/21/24 17:27 50 MLS/HR Diagnostic Test (Pha) 1 strip Q6HR 09/21/24 00:00 09/21/24 17:27 1 STRIP Insulin Human Regular Q6HR SC 09/21/24 00:00 09/21/24 17:39 3 UNITS Dextrose 50 ml UD PRN IV 09/20/24 22:00 Acetaminophen/ Hydrocodone Bitart 1 tab Q4HP PRN PO 09/20/24 22:00 Ondansetron HCl 4 mg Q4HP PRN IV 09/20/24 22:00 Acetaminophen 650 mg Q6HP PRN PO 09/20/24 22:00 Vancomycin HCl 0 ml @ 0 mls/hr UD IV 09/21/24 12:00 Ferrous Sulfate 325 mg BIDWM PO 09/21/24 18:00 09/21/24 17:40 325 MG Examination Gen: 33-year-old female in mild distress Skin: Warm, dry, normal color and texture, no rash. HEENT: Normocephalic atraumatic, mucous membranes moist and pink. Neck: Cervical and supraclavicular nodes normal without enlargement, trachea is midline, thyroid gland is normal without masses. Pulmonary: Clear to auscultation and percussion bilaterally. Cardiac: Regular rate and rhythm. No murmur Abdomen: Soft, nontender, nondistended, bowel sounds present all 4 quadrants, no guarding, no rigidity, no organomegaly. Extremities: No cyanosis, clubbing, left foot diabetic ulcer, left leg warm, slightly swollen compared to the right leg, red Neuro: Cranial nerves II through XII grossly intact, normal affect and speech, no focal motor deficits. laboratory and microbiology Laboratory Tests 09/21/24 05:10 Test 09/21/24 05:10 Range/Units Serum Glucose 154 H 74-106 mg/dL Microbiology Date/Time Source Procedure Growth Status 09/20/24 19:45 Foot Left Gram Stain - Final Resulted 09/20/24 19:45 Foot Left Wound Culture - Preliminary Resulted 09/20/24 17:05 Blood Blood Culture - Preliminary NO GROWTH AFTER 24 HOURS OF INCUBATION. Resulted Labs and/or images reviewed: Labs reviewed by me, Image(s) reviewed by me Problem List/Assessment/Plan Problem List/Assessment/Plan #Cellulitis - IV antibiotics ceftriaxone, clindamycin, vancomycin - Leg elevation - [place] 5/325 mg for pain q.4 PRN -mri leg shows: There is cellulitis in the plantar soft tissue structures. #Iron deficiency anemia -hemoglobin 6.9 on 09/21/2024 1 unit PRBC transfused -h&h pending post transfusion -iron profile shows iron deficiency anemia with low iron and ferritin levels -ferrous sulfate 325 mg per orally daily #Type 2 diabetes hba1c #Diabetic foot ulcer at left sole of foot -MRI L foot without contrast: No MR evidence of osteomyelitis. No focal abscess; Soft tissue swelling is present -outpatient follow up with Dr. Dinh #Acute kidney injury on Chronic kidney disease IIIb multifactorial in the setting of lower extremity cellulitis -Nephrology consult suggested: - Likely underlying diabetic nephropathy with Chronic kidney disease IIIb status from 06/2024; - Continue PRBC; Renally dose antibiotics; Iron repletion; Check U PCR; Check urine analysis; Kidney ultrasound; #? hypothyroidism TSH 13.68, T3-T4 pending -Levothyroxine 25 mcg per orally daily # Obesity- BMI 37.1 Patient counseled to lose weight andregarding need of exercise, healthy lifestyle and better diet GI prophylaxis: Protonix 40 mg per orally daily DVT prophylaxis: none due to low hemoglobin Diet: diabetic diet Goals of care discussed with the patient for more than 27 minutes: Full code status Case discussed with Dr. Cruz, patient and nurse. Plan discussed with: Patient, Other (rn) My Orders My Orders Orders - EDDIE BOCANEGRA RESIDENT Procedure Category Date Status Time Urine Sodium LAB 09/21/24 Logged 08:18 Urine Creatinine LAB 09/21/24 Logged 08:18 Urine LAB 09/21/24 Logged Protein/Creatinine Drug Screen LAB 09/21/24 Logged 08:18 Urinalysis LAB 09/21/24 Logged 08:18 Chest Xray 1 View XY 09/21/24 Resulted 08:18 Stool Occult Blood LAB 09/21/24 Logged 08:18 Vancomycin Per [facility] 09/21/24 In Process Pharmacy 12:00 Complete Blood Count LAB 09/22/24 Verified 04:00 Creatinine LAB 09/22/24 Verified 04:00 Vancomycin,Random LAB 09/22/24 Verified 04:00 Vancomycin Per [facility] 09/21/24 In Process Pharmacy [facility] 12:22 Hemoglobin & LAB 09/21/24 Logged Hematocrit 19:07 Basic Metabolic Panel LAB 09/22/24 Verified 04:00 Free T4 (Free LAB 09/21/24 Logged Thyroxine) 19:22 T3 Total LAB 09/21/24 Logged 19:22 Pantoprazole Tablet PHA 09/22/24 Transmitted (Protonix Tablet) 06:00 Date of Service: Sep 21, 2024 Billing Provider: CARMELO CRUZ MD Common Visit Codes: [id number] INP/OBS CARE(HIGH) EDDIE BOCANEGRA RESIDENT Sep 21, 2024 19:32 CARMELO CRUZ MD Sep 21, 2024 22:34
[2024-09-21 20:41] LABS: Hemoglobin 8.4 g/dL (12.2-16.2)
[2024-09-21 20:42] LABS: Hematocrit 26.4 % (36.0-46.0)
[2024-09-21 20:53] LABS: Free T4 (Free Thyroxine) 1.09 ng/dL (0.89-1.76)
[2024-09-21] MEDS ORDERED: MEROPENEM 500MG IVPB 50 ML IV SCH (22:00)
[2024-09-22] VITALS (8 sets, daily range): BP systolic 125–162; BP diastolic 68–93; PULSE 84–95; RESP 16–18; TEMP 97.9–98.3; O2SAT 95–97
[2024-09-22] MEDS: FUROSEMIDE 20 MG/2 ML VIAL IV ONE ×2 (00:24→10:20)
[2024-09-22] MEDS: PANTOPRAZOLE 40 MG TAB PO SCH (05:39)
[2024-09-22 08:09] LABS: Hematocrit 25.3 % (36.0-46.0); Hemoglobin 8.3 g/dL (12.2-16.2); Mean Corpuscular Hemoglobin 24.1 pg (28.0-32.0); Mean Corpuscular Volume 73.4 fL (80.0-100.0); Nucleated Red Blood Cells % 0.0 %
[2024-09-22 08:16] LABS: Potassium 4.3 mmol/L (3.5-5.1); Sodium 139 mmol/L (136-145)
[2024-09-22 08:17] LABS: Anion Gap 10 (5-15)
[2024-09-22 08:22] LABS: BUN/Creatinine Ratio 14.6 (10.0-20.0); Calcium 8.5 mg/dL (8.7-10.4); Carbon Dioxide 18 mmol/L (20-31); Chloride 111 mmol/L (98-107)
[2024-09-22 08:23] LABS: Blood Urea Nitrogen 39 mg/dL (9-23); Glucose 169 mg/dL (74-106)
[2024-09-22 08:38] LABS: Urine Protein, UAD 3+ (Negative)
[2024-09-22 08:55] LABS: Amphetamine Screen, Urine Neg (NEGATIVE); Barbiturate Scree,Urine Neg (NEGATIVE); Benzodiazephine Screen, Urine Neg (NEGATIVE); Cannabinoid Screen, Urine Neg (NEGATIVE); Cocaine Screen, Urine Neg (NEGATIVE); Opiate Scree,Urine Neg (NEGATIVE); Phencyclidine Screen, Urine Neg (NEGATIVE); Protein, Urine 479.8 mg/dL (1-14)
--- NOTE | 2024-09-22 09:45 | DVHPN2 ---
Progress Note Date Seen: Sep 22, 2024 Medical Necessity Reason Pt with a Central, PICC or Fol: No Subjective Patient reports: No new complaints Review of Systems: Deferred Objective vital signs Vital Sign Date Time Temp Pulse Resp B/P (MAP) Pulse Ox O2 Delivery O2 Flow Rate FiO2 09/22/24 08:30 98.3 89 16 148/83 (104) 97 98.3 09/21/24 20:00 Room Air* 0 21 Total Intake and Output 09/21/24 09/21/24 09/22/24 15:00 23:00 07:00 Intake Total 400 ml 300 ml 50 ml Output Total 1 ml Balance 400 ml 300 ml 49 ml medications Current Medications Medications Dose Ordered Sig/Marcia Route Start Time Stop Time Status Last Admin Dose Admin Levothyroxine Sodium 25 mcg QAM@0600 PO 09/21/24 06:00 09/22/24 05:39 25 MCG Ceftriaxone Sodium 50 ml @ 100 mls/hr DAILY@09 IV 09/21/24 09:00 09/22/24 09:22 100 MLS/HR Clindamycin Phosphate 50 ml @ 50 mls/hr Q8H IV 09/21/24 02:30 09/22/24 03:01 50 MLS/HR Diagnostic Test (Pha) 1 strip Q6HR 09/21/24 00:00 09/22/24 05:45 1 STRIP Insulin Human Regular Q6HR SC 09/21/24 00:00 09/22/24 06:01 3 UNITS Dextrose 50 ml UD PRN IV 09/20/24 22:00 Acetaminophen/ Hydrocodone Bitart 1 tab Q4HP PRN PO 09/20/24 22:00 Ondansetron HCl 4 mg Q4HP PRN IV 09/20/24 22:00 Acetaminophen 650 mg Q6HP PRN PO 09/20/24 22:00 Vancomycin HCl 0 ml @ 0 mls/hr UD IV 09/21/24 12:00 Ferrous Sulfate 325 mg BIDWM PO 09/21/24 18:00 09/22/24 09:22 325 MG Pantoprazole Sodium 40 mg DAILY@0600 PO 09/22/24 06:00 09/22/24 05:39 40 MG Examination: GENERAL:Normal, HEENT:Normal, NECK:Normal, LUNGS:Normal, CVS:Normal, ABDOMEN:Normal, MSK:Abnormal, SKIN:Abnormal, NEURO:Normal, :Normal laboratory and microbiology Laboratory Tests 09/22/24 06:39 Test 09/22/24 06:39 Range/Units Serum Glucose 169 H 74-106 mg/dL Microbiology Date/Time Source Procedure Growth Status 09/20/24 19:45 Foot Left Gram Stain - Final Resulted 09/20/24 19:45 Wound Culture - Preliminary Streptococcus Group G Resulted 09/20/24 17:05 Blood Blood Culture - Preliminary NO GROWTH AFTER 24 HOURS OF INCUBATION. Resulted Labs and/or images reviewed: Labs reviewed by me Problem List/Assessment/Plan Problem List/Assessment/Plan Acute kidney injury on Chronic kidney disease IIIb multifactorial in the setting of lower extremity cellulitis, anemia low hemoglobin Cellulitis Iron deficiency anemia Type 2 diabetes Likely underlying diabetic nephropathy with Chronic kidney disease IIIb status f rom 06/2024 nephrotic range proteinuria sec to DM Recommendations ARB initiation, jardiance 10mg , lasix 20mg po daily once renal function plateaus Kidney ultrasound hba1c 8.6 Plan discussed with: Patient My Orders My Orders Orders - ARTURO BONDS MD Procedure Category Date Status Time Ferrous Sulfate Tablet PHA 09/21/24 In Process 18:00 ARTURO BONDS MD Sep 22, 2024 09:45
--- NOTE | 2024-09-22 10:56 | DVH ---
INDICATION: perri vs ckd, fena 2 TECHNIQUE: Multiple real-time sonographic images of the kidneys and bladder were obtained. COMPARISON: None FINDINGS: The right kidney measures 10.5 cm in length, which is normal in size. There is normal echog enicity of the right kidney. No hydronephrosis. The left kidney measures 10.4 cm in length, which is normal in size. There is normal echogenicity of the left kidney. No hydronephrosis. No large intraluminal masses are seen in the bladder. Prior to voiding the bladder volume measures vo lume 494 cc. Following voiding, the bladder volume residual measures 0 cc. IMPRESSION: 1. Normal sonographic appearance of the kidneys. No hydronephrosis.
--- NOTE | 2024-09-22 12:50 | DVHCONRES ---
Date Seen: Sep 22, 2024 Reason for Consultation Left foot wound History of Present Illness 33-year-old female presents for evaluation of possible left lower extremity infected diabetic ulcer. Patient reports noticing a diabetic ulcer her left foot which has been causing pain over the past couple of days and she has also noticed redness to her foot. Denies fever or chills. No other acute complaints. Past Medical History See H&P Past Surgical History See H&P Family History: Family history: Diabetes mellitus G8 MOTHER, Onset:Unknown Hypertension G8 MOTHER, Onset:Unknown GRANDMOTHER Hypertension G8 MOTHER, Onset:Unknown GRANDMOTHER Allergies: Coded Allergies: Nafcillin (Verified Allergy, Severe, 01/25/23) Urticaria Amoxicillin (Verified Allergy, Unknown, 01/25/23) Penicillins (Verified Allergy, Unknown, 01/25/23) RASH Interview date: 04/09/2022 Patient reported itching with small bumps at chest area when taking PCNs drug class ( IV route) in 2020. There was no swelling , no SOB, no SJS at that time. Patient reported has never re-challenge with PCNs drug class or CEPHs so far. Home Meds Reported Medications Insulin Glargine (Lantus) 100 Unit/Ml Inj, 18 UNIT SC BID, INJ 11/10/20 Current Medications Current Medications Medications (Trade) Dose Ordered Sig/Marcia Route PRN Reason Start Time Stop Time Status Last Admin Meropenem 50 ml @ 17 mls/hr Q12HR IV 09/21/24 22:00 09/21/24 17:40 DC Ferrous Sulfate 325 mg BIDWM PO 09/21/24 18:00 09/22/24 09:22 Pantoprazole Sodium (Protonix Tablet) 40 mg DAILY@0600 PO 09/22/24 06:00 09/22/24 05:39 Vital Signs Vital Signs Date Time Temp Pulse Resp B/P (MAP) Pulse Ox O2 Delivery O2 Flow Rate FiO2 09/22/24 10:20 130/71 09/22/24 08:30 98.3 89 16 97 98.3 09/22/24 08:00 Room Air* 0 21 Physical Exam Dermatological: Skin is dry with mild erythema and some maceration around the wound site No gross deformities noted Mild non-pitting edema present bilaterally Left lateral foot wound with fibrotic base mild erythema Vascular: Dorsalis pedis and posterior tibial pulses are 1+ bilaterally Capillary refill is under 2 seconds Skin temperature is warm bilaterally Neurologic: Protective sensation is absent on the plantar forefoot bilaterally Monofilament testing reveals decreased sensation in multiple plantar sites Musculoskeletal: Range of motion at the ankle and MTP joints is within normal limits. Strength is 5/5 in all tested muscle groups. Gait is antalgic due to offloading of the affected limb. Labs/Diagnostic Data Labs Test 09/22/24 07:00 09/22/24 06:39 09/22/24 05:44 09/21/24 20:02 Range/Units Urine Color Light-yellow Yellow Urine Clarity Turbid H Clear Urine pH 6.5 5.0-9.0 Urine Specific [place] 1.012 1.001-1.035 Urine Protein 3+ H Negative Urine Ketones Negative Negative Urine Blood Trace H Negative /uL Urine Nitrite Negative Negative Urine Bilirubin Negative Negative Urine Urobilinogen Normal Negative mg/dL Urine Leukocyte Esterase Negative Negative /uL Urine RBC 2 0 - 4 /hpf Urine Microscopic WBC 3 0-5 /HPF Urine Squamous Epithelial Cells Mod <5 /hpf Urine Bacteria Few H None Seen /hpf Urine Mucus Few None Seen Urine Creatinine 59.60 30.0-125.0 mg/dL Urine Protein/Creatinine Ratio 8.05 Urine Sodium 63 40-220 mmol/L Urine Glucose 3+ H Normal mg/dL Urine Total Protein 479.8 H 1-14 mg/dL Urine Opiates Screen Neg NEGATIVE Urine Fentanyl Screen Neg NEGATIVE Urine Barbiturates Screen Neg NEGATIVE Urine Phencyclidine Screen Neg NEGATIVE Urine Amphetamines Screen Neg NEGATIVE Urine Benzodiazepines Screen Neg NEGATIVE Urine Cocaine Screen Neg NEGATIVE Urine Cannabinoids Screen Neg NEGATIVE White Blood Count 6.6 4.4-10.8 10^3/uL Red Blood Count 3.44 L 4.0-5.20 10^6/uL Hemoglobin 8.3 L 12.2-16.2 g/dL Hematocrit 25.3 L 36.0-46.0 % Mean Corpuscular Volume 73.4 L 80.0-100.0 fL Mean Corpuscular Hemoglobin 24.1 L 28.0-32.0 pg Mean Corpuscular Hemoglobin Concent 32.8 32.0-36.0 g/dL Red Cell Distribution Width 16.2 H 11.8-14.3 % Platelet Count 269 140-450 10^3/uL Mean Platelet Volume 8.2 6.9-10.8 fL Neutrophils (%) (Auto) 63.3 37.0-80.0 % Lymphocytes (%) (Auto) 26.4 10.0-50.0 % Monocytes (%) (Auto) 7.3 0.0-12.0 % Eosinophils (%) (Auto) 2.4 0.0-7.0 % Basophils (%) (Auto) 0.6 0.0-2.0 % Neutrophils # (Auto) 4.2 1.6-8.6 10 ^3/uL Lymphocytes # (Auto) 1.8 0.4-5.4 10 ^3/uL Monocytes # (Auto) 0.5 0-1.3 10 ^3/uL Eosinophils # (Auto) 0.2 0-0.8 10 ^3/uL Basophils # (Auto) 0 0-0.2 10 ^3/uL Nucleated Red Blood Cells 0.0 % Sodium Level 139 136-145 mmol/L Potassium Level 4.3 3.5-5.1 mmol/L Chloride Level 111 H 98-107 mmol/L Carbon Dioxide Level 18 L 20-31 mmol/L Anion Gap 10 5-15 Blood Urea Nitrogen 39 H 9-23 mg/dL Creatinine 2.68 H 0.550-1.02 mg/dL Glomerular Filtration Rate Calc 24 >90 mL/min BUN/Creatinine Ratio 14.6 10.0-20.0 Serum Glucose 169 H 74-106 mg/dL Hemoglobin A1c 8.6 H <5.7 % A1C Calcium Level 8.5 L 8.7-10.4 mg/dL Random Vancomycin Level 5.0 5-10 ug/mL POC Glucose 166 H 70-106 mg/dl Free Thyroxine (T4) Calculated 1.09 0.89-1.76 ng/dL Total Triiodothyronine (TT3) 1.00 0.60-1.81 ng/mL Test 09/21/24 05:10 09/20/24 17:05 Range/Units Reticulocyte Count (auto) 1.68 H 0.5-1.5 % Prothrombin Time 10.5 9.3-11.8 sec Prothrombin Time INR 0.99 0.9-1.15 Activated Partial Thromboplast Time 31.4 24.5-34.5 SEC Ferritin 45.8 10-291 ng/mL Total Bilirubin 0.2 0.2-1.0 mg/dL Direct Bilirubin < 0.1 <0.3 mg/dL Aspartate Amino Transferase (AST) 11 L 13-40 U/L Alanine Aminotransferase (ALT) 12 7-40 U/L Alkaline Phosphatase 83 46-116 U/L B-Type Natriuretic Peptide 24.78 0-100 pg/mL Total Protein 6.1 5.7-8.2 g/dL Albumin 3.6 3.2-4.8 g/dL Triglycerides Level 200 H < 150 mg/dL Cholesterol Level 220 H < 200 mg/dL LDL Cholesterol 151 H < 100 mg/dL HDL Cholesterol 44 40-59 mg/dL Thyroid Stimulating Hormone (TSH) 13.68 H 0.55-4.78 uIU/mL Beta HCG, Quantitative 0.7 L 1.5-4.2 mIU/mL Lactic Acid Level 1.0 0.4-2.0 mmol/L Iron Level 13 L 50-170 ug/dL Total Iron Binding Capacity 265 250-425 ug/dL Percent Iron Saturation 4.9 L 15-50 % Microbiology Date/Time Source Procedure Growth Status 09/20/24 19:45 Foot Left Gram Stain - Final Resulted 09/20/24 19:45 Wound Culture - Preliminary Streptococcus Group G Resulted 09/20/24 17:05 Blood Blood Culture - Preliminary NO GROWTH AFTER 24 HOURS OF INCUBATION. Resulted Problems(with codes): (1) Pyuria (2) Chronic hyperglycemia (3) Medical non-compliance (4) Abscess (5) Non compliance w medication regimen (6) Diabetes (7) Occluded PICC line (8) Drug reaction (9) Anaphylactic reaction (10) Lab test negative for COVID-19 virus (11) Foot ulcer (12) Left upper extremity deep vein thrombosis (13) Uncontrolled diabetes mellitus (14) Non compliance with medical treatment (15) Dietary noncompliance (16) Diabetic nephropathy associated with diabetes mellitus due to underlying condition (17) Amputation of left great toe (18) Foot drop, bilateral (19) Foot osteomyelitis, left (20) Diabetes mellitus (21) Osteomyelitis (22) Diabetic foot ulcer (23) Foot osteomyelitis, left (24) Left arm cellulitis (25) PICC line infection (26) Hyperkalemia (27) Allergic reaction (28) DVT (deep venous thrombosis) (29) Cellulitis (30) Anemia (31) Chronic kidney disease (32) Soft tissue infection (33) Diabetic infection of left foot (34) DIAB NOEMI WO COMPL, TYPE II OR UNSPEC TYPE, NOT UNCNTRLD (35) DEHYDRATION Plan/Recommendation ASSESSMENT: Patient is a 33 year old seen on the floor for a worsening ulcer PLAN: - The patients chart was reviewed, clinical findings were discussed with the patient, the etiologies of the conditions were discussed in detail, and a treatment plan was agreed to at this time, with both oral and written instructio ns provided. - reviewed advanced imaging - discussed that there appears to be no bone infection or abscess - likely just cellulitis of her left foot and leg - follow up with me on Wednesday - discharged home on p.o. antibiotics All questions were answered and concerns addressed to the patient's satisfaction. The patient was given the phone number to the clinic and was told how to make contact with the clinic should any concerns or questions arise. Patient understands that if any questions or concerns arise prior to the next appointment, we should be contacted immediately. FOLLOW-UP: Continue to follow while inpatient Plan discussed with: Patient Visit Coding Podiatry Date of Service if different f: Sep 22, 2024 Billing Provider: LIZ MONTOYA DPM Podiatry Common Visit Codes: CONSULT ONLY Podiatry Consult Codes: 56745-CO/OBS CONSLTJ NEW/EST HI 80 LIZ MONTOYA DPM Sep 22, 2024 12:50
--- NOTE | 2024-09-22 14:36 | DVHPNRES ---
Progress Note Date Seen: Sep 22, 2024 Resident Creating Document: EDDIE BOCANEGRA RESIDENT Medical Necessity Reason Pt with a Central, PICC or Fol: No Subjective Review of Systems 33-year-old female With a history of chronic kidney disease, anemia, diabetes mellitus type 2 and hypothyroidism presents for evaluation of possible left lower extremity infected diabetic ulcer. Patient reports that Wednesday 3 days ago, she had fever and chills and on Wednesday she woke up and felt that her feet was red hot and pus was oozing from her callus which was incised by Dr. Dinh 2 weeks ago. She reports that she missed his appointment that day due to fever and also forgot to take her Lantus injection which she takes twice a day. She checked her blood sugar which was 170 at home. Due to the oozing of her foot ulcer in the left leg she came to the emergency. No other acute complaints. Past Medical History hypothyroidism, chronic kidney disease, anemia, diabetes mellitus Past Surgical History Toe amputation Family History Noncontributory Smoke: No ALCOHOL: none Drugs: None Lives: with Family ROS: 09/22/2024: Patient was seen and examined by me at the bedside. Overnight events were reviewed. Podiatry consult was done and suggested outpatient follow up on Wednesday. Nephrology consultation suggested ARB in season, Jardiance 10 mg, Lasix 20 mg per orally daily once renal function flatus. She results came back which showed normal sonographic appearance of kidneys no hydronephrosis. Objective vital signs Vital Sign Date Time Temp Pulse Resp B/P (MAP) Pulse Ox O2 Delivery O2 Flow Rate FiO2 09/22/24 13:05 98.1 91 16 141/89 (106) 97 98.1 09/22/24 08:00 Room Air* 0 21 Total Intake and Output 09/21/24 09/21/24 09/22/24 15:00 23:00 07:00 Intake Total 400 ml 300 ml 50 ml Output Total 1 ml Balance 400 ml 300 ml 49 ml medications Current Medications Medications Dose Ordered Sig/Marcia Route Start Time Stop Time Status Last Admin Dose Admin Levothyroxine Sodium 25 mcg QAM@0600 PO 09/21/24 06:00 09/22/24 05:39 25 MCG Ceftriaxone Sodium 50 ml @ 100 mls/hr DAILY@09 IV 09/21/24 09:00 09/22/24 09:22 100 MLS/HR Clindamycin Phosphate 50 ml @ 50 mls/hr Q8H IV 09/21/24 02:30 09/22/24 10:19 50 MLS/HR Diagnostic Test (Pha) 1 strip Q6HR 09/21/24 00:00 09/22/24 12:18 1 STRIP Insulin Human Regular Q6HR SC 09/21/24 00:00 09/22/24 12:18 3 UNITS Dextrose 50 ml UD PRN IV 09/20/24 22:00 Acetaminophen/ Hydrocodone Bitart 1 tab Q4HP PRN PO 09/20/24 22:00 Ondansetron HCl 4 mg Q4HP PRN IV 09/20/24 22:00 Acetaminophen 650 mg Q6HP PRN PO 09/20/24 22:00 Vancomycin HCl 0 ml @ 0 mls/hr UD IV 09/21/24 12:00 Ferrous Sulfate 325 mg BIDWM PO 09/21/24 18:00 09/22/24 09:22 325 MG Pantoprazole Sodium 40 mg DAILY@0600 PO 09/22/24 06:00 09/22/24 05:39 40 MG Examination Gen: 33-year-old female in mild distress Skin: Warm, dry, normal color and texture, no rash. HEENT: Normocephalic atraumatic, mucous membranes moist and pink. Neck: Cervical and supraclavicular nodes normal without enlargement, trachea is midline, thyroid gland is normal without masses. Pulmonary: Clear to auscultation and percussion bilaterally. Cardiac: Regular rate and rhythm. No murmur Abdomen: Soft, nontender, nondistended, bowel sounds present all 4 quadrants, no guarding, no rigidity, no organomegaly. Extremities: No cyanosis, clubbing, left foot diabetic ulcer, left leg warm, slightly swollen compared to the right leg Neuro: Cranial nerves II through XII grossly intact, normal affect and speech, no focal motor deficits. laboratory and microbiology Laboratory Tests 09/22/24 06:39 Test 09/22/24 06:39 Range/Units Serum Glucose 169 H 74-106 mg/dL Microbiology Date/Time Source Procedure Growth Status 09/20/24 19:45 Foot Left Gram Stain - Final Resulted 09/20/24 19:45 Wound Culture - Preliminary Streptococcus Group G Resulted 09/20/24 17:05 Blood Blood Culture - Preliminary NO GROWTH AFTER 24 HOURS OF INCUBATION. Resulted Labs and/or images reviewed: Labs reviewed by me, Image(s) reviewed by me Problem List/Assessment/Plan Problem List/Assessment/Plan #Cellulitis - IV antibiotics ceftriaxone, clindamycin, vancomycin - Leg elevation - [place] 5/325 mg for pain q.4 PRN -mri leg shows: There is cellulitis in the plantar soft tissue structures. #Iron deficiency anemia -hemoglobin 6.9 on 09/21/2024 1 unit PRBC transfused -h&h pending post transfusion -iron profile shows iron deficiency anemia with low iron and ferritin levels -ferrous sulfate 325 mg per orally daily #Type 2 diabetes hba1c #infected left foot diabetic ulcer -MRI L foot without contrast: No MR evidence of osteomyelitis. No focal abscess; Soft tissue swelling is present -Podiatry consult done suggested: reviewed advanced imaging; discussed that there appears to be no bone infection or abscess; likely just cellulitis of her left foot and leg; outpatient follow up with Dr. Dinh and discharged home on p.o. antibiotics #Acute kidney injury on Chronic kidney disease IIIb multifactorial in the setting of lower extremity cellulitis -Nephrology consult suggested: - Likely underlying diabetic nephropathy with Chronic kidney disease IIIb status from 06/2024; - Continue PRBC; Renally dose antibiotics; Iron repletion; Check U PCR; Check urine analysis; Kidney ultrasound -nephrology consult suggested (09/22) : ARB initiation, jardiance 10mg , lasix 20mg po daily once renal function plateaus -USG kidney shows: Normal sonographic appearance of the kidneys. No hydronephrosis. -bnp tomm -furosemide given yesterday and today 09/22/2024 #subclinical hypothyroidism TSH 13.68, T3-T4 normal -Levothyroxine 25 mcg per orally daily -repeat in tsh in 6 weeks and followup outpt with art conservator # Obesity- BMI 37.1 Patient counseled to lose weight andregarding need of exercise, healthy lifestyle and better diet GI prophylaxis: Protonix 40 mg per orally daily DVT prophylaxis: none due to low hemoglobin Diet: diabetic diet Goals of care discussed with the patient for more than 27 minutes: Full code status Case discussed with Dr. Cruz, patient and nurse. Plan discussed with: Patient, Other (rn) My Orders My Orders Orders - EDDIE BOCANEGRA RESIDENT Procedure Category Date Status Time Pantoprazole Tablet PHA 09/22/24 In Process (Protonix Tablet) 06:00 Date of Service: Sep 22, 2024 Billing Provider: CARMELO CRUZ MD Common Visit Codes: [id number] INP/OBS CARE(HIGH) EDDIE BOCANEGRA RESIDENT Sep 22, 2024 14:36 CARMELO CRUZ MD Sep 22, 2024 22:58
[2024-09-22] MEDS: VANCOMYCIN 1GM/250ML KIT 250 ML IV SCH (17:38)
[2024-09-23] VITALS (7 sets, daily range): BP systolic 121–155; BP diastolic 76–88; PULSE 65–96; RESP 16–18; TEMP 97.7–98.3; O2SAT 96–98
[2024-09-23 08:03] LABS: Hematocrit 27.7 % (36.0-46.0); Hemoglobin 9.0 g/dL (12.2-16.2); Mean Corpuscular Hemoglobin 23.7 pg (28.0-32.0); Mean Corpuscular Volume 73.1 fL (80.0-100.0); Nucleated Red Blood Cells % 0.0 %
[2024-09-23 08:10] LABS: Anion Gap 11 (5-15); Potassium 4.3 mmol/L (3.5-5.1); Sodium 139 mmol/L (136-145)
[2024-09-23 08:17] LABS: BUN/Creatinine Ratio 13.4 (10.0-20.0); Blood Urea Nitrogen 37 mg/dL (9-23); Calcium 8.6 mg/dL (8.7-10.4); Carbon Dioxide 18 mmol/L (20-31); Chloride 110 mmol/L (98-107); Glucose 175 mg/dL (74-106)
--- NOTE | 2024-09-23 08:44 | DVHPN2 ---
Progress Note Date Seen: Sep 23, 2024 Medical Necessity Reason Pt with a Central, PICC or Fol: No Subjective Patient reports: No new complaints, Feels better Changes from previous H/P or p: No Changes Review of Systems: HEENT:Normal, CVS:Normal, RESPIRATORY:Normal, GI:Normal, :Normal, MSK:Normal, NEURO:Normal Objective vital signs Vital Sign Date Time Temp Pulse Resp B/P (MAP) Pulse Ox O2 Delivery O2 Flow Rate FiO2 09/23/24 05:00 98.2 88 18 144/81 (102) 98 98.2 09/22/24 20:00 Room Air* 0 21 Total Intake and Output 09/22/24 09/22/24 09/23/24 15:00 23:00 07:00 Intake Total 100 ml 1436 ml 1650 ml Balance 100 ml 1436 ml 1650 ml medications Current Medications Medications Dose Ordered Sig/Marcia Route Start Time Stop Time Status Last Admin Dose Admin Levothyroxine Sodium 25 mcg QAM@0600 PO 09/21/24 06:00 09/23/24 06:18 25 MCG Ceftriaxone Sodium 50 ml @ 100 mls/hr DAILY@09 IV 09/21/24 09:00 09/22/24 09:22 100 MLS/HR Clindamycin Phosphate 50 ml @ 50 mls/hr Q8H IV 09/21/24 02:30 09/23/24 03:08 50 MLS/HR Diagnostic Test (Pha) 1 strip Q6HR 09/21/24 00:00 09/23/24 06:20 1 STRIP Insulin Human Regular Q6HR SC 09/21/24 00:00 09/23/24 06:20 3 UNITS Dextrose 50 ml UD PRN IV 09/20/24 22:00 Acetaminophen/ Hydrocodone Bitart 1 tab Q4HP PRN PO 09/20/24 22:00 Ondansetron HCl 4 mg Q4HP PRN IV 09/20/24 22:00 Acetaminophen 650 mg Q6HP PRN PO 09/20/24 22:00 Vancomycin HCl 0 ml @ 0 mls/hr UD IV 09/21/24 12:00 Ferrous Sulfate 325 mg BIDWM PO 09/21/24 18:00 09/22/24 17:39 325 MG Pantoprazole Sodium 40 mg DAILY@0600 PO 09/22/24 06:00 09/23/24 06:18 40 MG Vancomycin HCl 250 ml @ 200 mls/hr Q18H IV 09/22/24 18:00 09/22/24 17:38 200 MLS/HR Examination: GENERAL:Normal, HEENT:Normal, NECK:Normal, LUNGS:Normal, CVS:Normal, ABDOMEN:Normal, MSK:Abnormal, SKIN:Abnormal, NEURO:Normal, :Normal laboratory and microbiology Laboratory Tests 09/23/24 06:47 Test 09/23/24 06:47 Range/Units Serum Glucose 175 H 74-106 mg/dL Microbiology Date/Time Source Procedure Growth Status 09/20/24 19:45 Foot Left Gram Stain - Final Resulted 09/20/24 19:45 Wound Culture - Preliminary Streptococcus Group G Resulted 09/20/24 17:05 Blood Blood Culture - Preliminary NO GROWTH AFTER 48 HOURS OF INCUBATION. Resulted Problem List/Assessment/Plan Problem List/Assessment/Plan Acute kidney injury on Chronic kidney disease IIIb /4 multifactorial in the setting of lower extremity cellulitis, anemia low hemoglobin Cellulitis Iron deficiency anemia Type 2 diabetes Likely underlying diabetic nephropathy with Chronic kidney disease IIIb status f rom 06/2024 nephrotic range proteinuria sec to DM HTN Recommendations ARB initiation, jardiance 10mg , amlodipine ordered as her bp is high Kidney ultrasound wnl hba1c 8.6 on abx podiatry Plan discussed with: Patient My Orders My Orders Orders - ARTURO BONDS MD Procedure Category Date Status Time Amlodipine Tablet PHA 09/23/24 Verified (Norvasc Tablet) 10:00 Losartan Tablet PHA 09/23/24 Verified (Cozaar Tablet) 10:00 Empagliflozin PHA 09/23/24 Verified (Jardiance) 10:00 ARTURO BONDS MD Sep 23, 2024 08:44
[2024-09-23 09:26] LABS: Magnesium 1.6 mg/dL (1.6-2.6)
[2024-09-23] MEDS: LOSARTAN POTASSIUM 50 MG TAB PO SCH (11:45)
[2024-09-23] MEDS: EMPAGLIFLOZIN 10 MG TAB PO SCH (11:45)
[2024-09-23] MEDS: ERGOCALCIFEROL 50,000 UNIT(1.25MG) CAP PO SCH (12:24)
[2024-09-23] MEDS ORDERED: DEXTROSE (50%) 50ML SYRG IV PRN (15:45)
--- NOTE | 2024-09-23 16:53 | DVHPNRES ---
Progress Note Date Seen: Sep 23, 2024 Resident Creating Document: EDDIE BOCANEGRA RESIDENT Medical Necessity Reason Pt with a Central, PICC or Fol: No Subjective Review of Systems 33-year-old female With a history of chronic kidney disease, anemia, diabetes mellitus type 2 and hypothyroidism presents for evaluation of possible left lower extremity infected diabetic ulcer. Patient reports that Wednesday 3 days ago, she had fever and chills and on Wednesday she woke up and felt that her feet was red hot and pus was oozing from her callus which was incised by Dr. Dinh 2 weeks ago. She reports that she missed his appointment that day due to fever and also forgot to take her Lantus injection which she takes twice a day. She checked her blood sugar which was 170 at home. Due to the oozing of her foot ulcer in the left leg she came to the emergency. No other acute complaints. Past Medical History hypothyroidism, chronic kidney disease, anemia, diabetes mellitus Past Surgical History Toe amputation Family History Noncontributory Smoke: No ALCOHOL: none Drugs: None Lives: with Family ROS: 09/22/2024: Patient was seen and examined by me at the bedside. Overnight events were reviewed. Podiatry consult was done and suggested outpatient follow up on Wednesday. Nephrology consultation suggested ARB in season, Jardiance 10 mg, Lasix 20 mg per orally daily once renal function flatus. She results came back which showed normal sonographic appearance of kidneys no hydronephrosis. 09/23/2024: Patient was seen by me at the bedside. Overnight events were reviewed. Patient has swelling of the legs/cellulitis has gone down and appears almost equal to the normal leg. Vitamin-D levels were repleted. Nephrology consult suggested losartan 50 mg, Jardiance 10 mg and amlodipine 10 mg for the patient. Since her blood glucose level came to 235, we are increasing the mild sliding scale insulin o moderate sliding scale insulin and adding in Lantus 10 units HS for tonight. Possible discharge tomorrow if sugar levels decrease. Objective vital signs Vital Sign Date Time Temp Pulse Resp B/P (MAP) Pulse Ox O2 Delivery O2 Flow Rate FiO2 09/23/24 13:00 97.7 94 18 155/88 (110) 96 97.7 09/23/24 08:00 Room Air* 0 21 Total Intake and Output 8/09/22/24 09/23/24 15:00 23:00 07:00 Intake Total 100 ml 1436 ml 1650 ml Balance 100 ml 1436 ml 1650 ml medications Current Medications Medications Dose Ordered Sig/Marcia Route Start Time Stop Time Status Last Admin Dose Admin Levothyroxine Sodium 25 mcg QAM@0600 PO 09/21/24 06:00 09/23/24 06:18 25 MCG Ceftriaxone Sodium 50 ml @ 100 mls/hr DAILY@09 IV 09/21/24 09:00 09/23/24 09:38 100 MLS/HR Clindamycin Phosphate 50 ml @ 50 mls/hr Q8H IV 09/21/24 02:30 09/23/24 10:41 50 MLS/HR Acetaminophen/ Hydrocodone Bitart 1 tab Q4HP PRN PO 09/20/24 22:00 Ondansetron HCl 4 mg Q4HP PRN IV 09/20/24 22:00 Acetaminophen 650 mg Q6HP PRN PO 09/20/24 22:00 Vancomycin HCl 0 ml @ 0 mls/hr UD IV 09/21/24 12:00 Ferrous Sulfate 325 mg BIDWM PO 09/21/24 18:00 09/23/24 09:38 325 MG Pantoprazole Sodium 40 mg DAILY@0600 PO 09/22/24 06:00 09/23/24 06:18 40 MG Vancomycin HCl 250 ml @ 200 mls/hr Q18H IV 09/22/24 18:00 09/23/24 11:44 200 MLS/HR Amlodipine Besylate 10 mg DAILY PO 09/23/24 10:00 09/23/24 11:45 10 MG Losartan Potassium 50 mg DAILY PO 09/23/24 10:00 09/23/24 11:45 50 MG Empaglifozin 10 mg DAILY PO 09/23/24 10:00 09/23/24 11:45 10 MG Ergocalciferol 50,000 unit Q7D PO 09/23/24 12:15 09/23/24 12:24 50,000 UNIT Diagnostic Test (Pha) 1 strip ACHS 09/23/24 17:00 Insulin Human Regular HS SC 09/23/24 22:00 Insulin Human Regular AC SC 09/23/24 17:00 Dextrose 50 ml UD PRN IV 09/23/24 15:45 Examination Gen: 33-year-old female in mild distress Skin: Warm, dry, normal color and texture, no rash. HEENT: Normocephalic atraumatic, mucous membranes moist and pink. Neck: Cervical and supraclavicular nodes normal without enlargement, trachea is midline, thyroid gland is normal without masses. Pulmonary: Clear to auscultation and percussion bilaterally. Cardiac: Regular rate and rhythm. No murmur Abdomen: Soft, nontender, nondistended, bowel sounds present all 4 quadrants, no guarding, no rigidity, no organomegaly. Extremities: No cyanosis, clubbing, left foot diabetic ulcer, left leg warm, size of the left foot is almost the same as the right today Neuro: Cranial nerves II through XII grossly intact, normal affect and speech, no focal motor deficits. laboratory and microbiology Laboratory Tests 09/23/24 06:47 Test 09/23/24 06:47 Range/Units Serum Glucose 175 H 74-106 mg/dL Microbiology Date/Time Source Procedure Growth Status 09/20/24 19:45 Foot Left Gram Stain - Final Complete 09/20/24 19:45 Wound Culture - Final Staphylococcus aureus Streptococcus Group G Complete 09/20/24 17:05 Blood Blood Culture - Preliminary NO GROWTH AFTER 48 HOURS OF INCUBATION. Resulted Labs and/or images reviewed: Labs reviewed by me, Image(s) reviewed by me Problem List/Assessment/Plan Problem List/Assessment/Plan #Cellulitis - IV antibiotics ceftriaxone, clindamycin, vancomycin - Leg elevation - [place] 5/325 mg for pain q.4 PRN -mri leg shows: There is cellulitis in the plantar soft tissue structures. #Iron deficiency anemia -hemoglobin 6.9 on 09/21/2024 1 unit PRBC transfused -h&h pending post transfusion -iron profile shows iron deficiency anemia with low iron and ferritin levels -ferrous sulfate 325 mg per orally daily #Type 2 diabetes hba1c #infected left foot diabetic ulcer -MRI L foot without contrast: No MR evidence of osteomyelitis. No focal abscess; Soft tissue swelling is present -Podiatry consult done suggested: reviewed advanced imaging; discussed that there appears to be no bone infection or abscess; likely just cellulitis of her left foot and leg; outpatient follow up with Dr. Dinh and discharged home on p.o. antibiotics #Acute kidney injury on Chronic kidney disease IIIb multifactorial in the setting of lower extremity cellulitis -Nephrology consult suggested: - Likely underlying diabetic nephropathy with Chronic kidney disease IIIb status from 06/2024; - Continue PRBC; Renally dose antibiotics; Iron repletion; Check U PCR; Check urine analysis; Kidney ultrasound -nephrology consult suggested (09/22) : ARB initiation, jardiance 10mg , lasix 20mg po daily once renal function plateaus -USG kidney shows: Normal sonographic appearance of the kidneys. No hydronephrosis. -bnp tomm -furosemide given yesterday and today 09/22/2024 -nephro consult suggested (09/23) Losartan 50 mg, Jardiance 10 mg daily, amlodipine 10 mg -Mild sliding scale insulin changed to moderate sliding scale insulin today on 09/23, Lantus 10 units to be given hs tonight #subclinical hypothyroidism TSH 13.68, T3-T4 normal -Levothyroxine 25 mcg per orally daily -repeat in tsh in 6 weeks and followup outpt with hole filler # Obesity- BMI 37.1 -Patient counseled to lose weight and regarding need of exercise, healthy lifestyle and better diet # Vitamin-D deficiency -Repleted GI prophylaxis: Protonix 40 mg per orally daily DVT prophylaxis: none due to low hemoglobin Diet: diabetic diet Goals of care discussed with the patient for more than 27 minutes: Full code status Case discussed with Dr. Cruz, patient and nurse. Plan discussed with: Patient, Other (rn) My Orders My Orders Orders - EDDIE BOCANEGRA RESIDENT Procedure Category Date Status Time Vancomycin 1gm/250ml PHA 09/22/24 In Process Kit 18:00 Vancomycin,Trough LAB 09/24/24 Verified 23:00 Vancomycin Per [facility] 09/22/24 In Process Pharmacy Protoc 17:25 Parathyroid Hormone LAB 09/23/24 In Process Intact 08:42 Ergocalciferol PHA 09/23/24 In Process (Vitamin D 50,000 12:15 Complete Blood Count LAB 09/24/24 Verified 04:00 Creatinine LAB 09/24/24 Verified 04:00 Glucose Blood PHA 09/23/24 In Process (Accu-Chek Comfort 17:00 Insulin R (Human) PHA 09/23/24 In Process (Insulin R) 22:00 Insulin R (Human) PHA 09/23/24 In Process (Insulin R) 17:00 Dextrose 50% Syringe PHA 09/23/24 In Process 15:45 Insulin Lantus PHA 09/23/24 In Process (Glargine) (Lantus) 21:00 EDDIE BOCANEGRA RESIDENT Sep 23, 2024 16:53
[2024-09-23] MEDS: ACCU-CHEK COMFORT CURVE STRIP VI SCH (16:57)
[2024-09-23] MEDS: InsuLIN REG 1unit/0.01ml Soln (100units/ml) SC SCH ×2 (17:01→21:03)
[2024-09-23] MEDS: INSULIN LANTUS (GLARGINE) 1 /0.01ml (100units/ml) SC ONE (21:07)
[2024-09-24 01:00] VITALS: BP 119/71; PULSE 95; RESP 16; TEMP 98.1; O2SAT 97
[2024-09-24 05:00] VITALS: BP 110/58; PULSE 90; RESP 17; TEMP 98; O2SAT 98
[2024-09-24 08:00] VITALS: PULSE 97; RESP 18
[2024-09-24 08:07] LABS: Hematocrit 26.8 % (36.0-46.0); Hemoglobin 8.7 g/dL (12.2-16.2); Mean Corpuscular Hemoglobin 23.9 pg (28.0-32.0); Mean Corpuscular Volume 73.6 fL (80.0-100.0); Nucleated Red Blood Cells % 0.0 %
[2024-09-24 08:21] LABS: Anion Gap 12 (5-15); Potassium 4.6 mmol/L (3.5-5.1); Sodium 137 mmol/L (136-145)
[2024-09-24 08:27] LABS: BUN/Creatinine Ratio 12.3 (10.0-20.0)
[2024-09-24 08:32] LABS: Blood Urea Nitrogen 33 mg/dL (9-23); Calcium 8.6 mg/dL (8.7-10.4); Carbon Dioxide 16 mmol/L (20-31); Chloride 109 mmol/L (98-107); Glucose 178 mg/dL (74-106)
[2024-09-24 09:00] VITALS: BP 131/80; PULSE 92; RESP 17; TEMP 98.8; O2SAT 97
--- NOTE | 2024-09-24 12:43 | DVHPN2 ---
Progress Note Date Seen: Sep 24, 2024 Medical Necessity Reason Pt with a Central, PICC or Fol: No Subjective Patient reports: No new complaints Review of Systems: Deferred Objective vital signs Vital Sign Date Time Temp Pulse Resp B/P (MAP) Pulse Ox O2 Delivery O2 Flow Rate FiO2 09/24/24 09:00 98.8 92 17 131/80 (97) 97 98.8 09/24/24 08:00 Room Air* 0 21 Total Intake and Output 09/23/24 09/23/24 09/24/24 15:00 23:00 07:00 Intake Total 500 ml 1300 ml 400 ml Balance 500 ml 1300 ml 400 ml medications Current Medications Medications Dose Ordered Sig/Marcia Route Start Time Stop Time Status Last Admin Dose Admin Levothyroxine Sodium 25 mcg QAM@0600 PO 09/21/24 06:00 09/24/24 06:17 25 MCG Ceftriaxone Sodium 50 ml @ 100 mls/hr DAILY@09 IV 09/21/24 09:00 09/24/24 08:29 100 MLS/HR Clindamycin Phosphate 50 ml @ 50 mls/hr Q8H IV 09/21/24 02:30 09/24/24 10:51 50 MLS/HR Acetaminophen/ Hydrocodone Bitart 1 tab Q4HP PRN PO 09/20/24 22:00 Ondansetron HCl 4 mg Q4HP PRN IV 09/20/24 22:00 Acetaminophen 650 mg Q6HP PRN PO 09/20/24 22:00 Vancomycin HCl 0 ml @ 0 mls/hr UD IV 09/21/24 12:00 Ferrous Sulfate 325 mg BIDWM PO 09/21/24 18:00 09/24/24 08:29 325 MG Pantoprazole Sodium 40 mg DAILY@0600 PO 09/22/24 06:00 09/24/24 06:17 40 MG Vancomycin HCl 250 ml @ 200 mls/hr Q18H IV 09/22/24 18:00 09/24/24 06:21 200 MLS/HR Amlodipine Besylate 10 mg DAILY PO 09/23/24 10:00 09/24/24 08:30 10 MG Losartan Potassium 50 mg DAILY PO 09/23/24 10:00 09/24/24 08:30 50 MG Empaglifozin 10 mg DAILY PO 09/23/24 10:00 09/24/24 08:29 10 MG Ergocalciferol 50,000 unit Q7D PO 09/23/24 12:15 09/23/24 12:24 50,000 UNIT Diagnostic Test (Pha) 1 strip ACHS 09/23/24 17:00 09/24/24 11:00 1 STRIP Insulin Human Regular HS SC 09/23/24 22:00 09/23/24 21:03 4 UNITS Insulin Human Regular AC SC 09/23/24 17:00 09/24/24 11:01 3 UNITS Dextrose 50 ml UD PRN IV 09/23/24 15:45 laboratory and microbiology Laboratory Tests 09/24/24 07:16 Test 09/24/24 07:16 Range/Units Serum Glucose 178 H 74-106 mg/dL Microbiology Date/Time Source Procedure Growth Status 09/20/24 19:45 Foot Left Gram Stain - Final Complete 09/20/24 19:45 Wound Culture - Final Staphylococcus aureus Streptococcus Group G Complete 09/20/24 17:05 Blood Blood Culture - Preliminary NO GROWTH AFTER 72 HOURS OF INCUBATION. Resulted Problem List/Assessment/Plan Problem List/Assessment/Plan Acute kidney injury on Chronic kidney disease IIIb /4 multifactorial in the setting of lower extremity cellulitis, anemia low hemoglobin Cellulitis Iron deficiency anemia Type 2 diabetes Likely underlying diabetic nephropathy with Chronic kidney disease IIIb status f rom 06/2024 nephrotic range proteinuria sec to DM HTN Recommendations ARB initiation, jardiance 10mg , amlodipine ordered as her bp is high po bicarb Kidney ultrasound wnl hba1c 8.6 on abx podiatry F/u with me in office after discharge Plan discussed with: Patient My Orders My Orders Orders - ARTURO BONDS MD Procedure Category Date Status Time Sodium Bicarb Tab PHA 09/24/24 Logged 14:00 Cholecalciferol PHA 09/24/24 Logged Tablet (Vitamin D3 12:45 ARTURO BONDS MD Sep 24, 2024 12:43
[2024-09-24 13:00] VITALS: BP 135/84; PULSE 94; RESP 20; TEMP 98.4; O2SAT 98
[2024-09-24] MEDS ORDERED: [UNRECOGNIZED DRUG - CODE] XX (14:06)
[2024-09-24] MEDS ORDERED: BLOO1KIT60 XX (14:06)
[2024-09-24] MEDS ORDERED: LANC-336 XX (14:06)
[2024-09-24] MEDS ORDERED: AML5T PO (14:06)
[2024-09-24] MEDS ORDERED: CLIN1CAP70 PO (14:06)
[2024-09-24] MEDS ORDERED: PANT40T PO (14:06)
[2024-09-24] MEDS ORDERED: SODI650T PO (14:06)
[2024-09-24] MEDS ORDERED: EMPA1TAB PO (14:06)
[2024-09-24] MEDS ORDERED: FER325T PO (14:06)
[2024-09-24] MEDS ORDERED: LEVO25TA6 PO (14:06)
[2024-09-24] MEDS ORDERED: INSUINJ37 SC (14:06)
[2024-09-24] MEDS ORDERED: INSU1INJ15 SC (14:06)
[2024-09-24] MEDS ORDERED: LOSA-534 PO (14:06)
[2024-09-24] MEDS ORDERED: LEVO50TA7 PO (14:07)
[2024-09-24] MEDS: CHOLECALCIFEROL (VITD3) 1,000UNIT=25mCg TAB PO SCH (14:08)
[2024-09-24] MEDS: SODIUM BICARBONATE 650 MG TAB PO SCH (14:08)
[2024-09-24 14:25] VITALS: BP 129/71; TEMP 37.1
--- NOTE | 2024-09-24 17:58 | DVHDSRES ---
Discharge Summary Date of Admission Resident Creating Document: ROGELIO ANDRADE Sep 20, 2024 at 19:57 Date of Discharge: Sep 24, 2024 Admitting Diagnosis #cellulitis Labs/Diagnostic Data: Laboratory Results Test 09/24/24 10:55 09/24/24 07:16 09/23/24 08:42 09/23/24 06:47 POC Glucose 191 mg/dl (70-106) White Blood Count 10.1 10^3/uL (4.4-10.8) Red Blood Count 3.65 10^6/uL (4.0-5.20) Hemoglobin 8.7 g/dL (12.2-16.2) Hematocrit 26.8 % (36.0-46.0) Mean Corpuscular Volume 73.6 fL (80.0-100.0) Mean Corpuscular Hemoglobin 23.9 pg (28.0-32.0) Mean Corpuscular Hemoglobin Concent 32.5 g/dL (32.0-36.0) Red Cell Distribution Width 16.0 % (11.8-14.3) Platelet Count 308 10^3/uL (140-450) Mean Platelet Volume 8.1 fL (6.9-10.8) Neutrophils (%) (Auto) 74.6 % (37.0-80.0) Lymphocytes (%) (Auto) 18.5 % (10.0-50.0) Monocytes (%) (Auto) 4.4 % (0.0-12.0) Eosinophils (%) (Auto) 2.0 % (0.0-7.0) Basophils (%) (Auto) 0.5 % (0.0-2.0) Neutrophils # (Auto) 7.5 10 ^3/uL (1.6-8.6) Lymphocytes # (Auto) 1.9 10 ^3/uL (0.4-5.4) Monocytes # (Auto) 0.4 10 ^3/uL (0-1.3) Eosinophils # (Auto) 0.2 10 ^3/uL (0-0.8) Basophils # (Auto) 0.1 10 ^3/uL (0-0.2) Nucleated Red Blood Cells 0.0 % Sodium Level 137 mmol/L (136-145) Potassium Level 4.6 mmol/L (3.5-5.1) Chloride Level 109 mmol/L (98-107) Carbon Dioxide Level 16 mmol/L (20-31) Anion Gap 12 (5-15) Blood Urea Nitrogen 33 mg/dL (9-23) Creatinine 2.68 mg/dL (0.550-1.02) Glomerular Filtration Rate Calc 24 mL/min (>90) BUN/Creatinine Ratio 12.3 (10.0-20.0) Serum Glucose 178 mg/dL (74-106) Calcium Level 8.6 mg/dL (8.7-10.4) Phosphorus Level 4.5 mg/dL (2.4-5.1) Magnesium Level 1.6 mg/dL (1.6-2.6) Vitamin D 25-Hydroxy 12.1 ng/mL (30.0-100) Test 09/22/24 07:00 09/22/24 06:39 09/21/24 20:02 09/21/24 05:10 Urine Color Light-yellow (Yellow) Urine Clarity Turbid (Clear) Urine pH 6.5 (5.0-9.0) Urine Specific [place] 1.012 (1.001-1.035) Urine Protein 3+ (Negative) Urine Ketones Negative (Negative) Urine Blood Trace /uL (Negative) Urine Nitrite Negative (Negative) Urine Bilirubin Negative (Negative) Urine Urobilinogen Normal mg/dL (Negative) Urine Leukocyte Esterase Negative /uL (Negative) Urine RBC 2 /hpf (0 - 4) Urine Microscopic WBC 3 /HPF (0-5) Urine Squamous Epithelial Cells Mod /hpf (<5) Urine Bacteria Few /hpf (None Seen) Urine Mucus Few (None Seen) Urine Creatinine 59.60 mg/dL (30.0-125.0) Urine Protein/Creatinine Ratio 8.05 Urine Sodium 63 mmol/L (40-220) Urine Glucose 3+ mg/dL (Normal) Urine Total Protein 479.8 mg/dL (1-14) Urine Opiates Screen Neg (NEGATIVE) Urine Fentanyl Screen Neg (NEGATIVE) Urine Barbiturates Screen Neg (NEGATIVE) Urine Phencyclidine Screen Neg (NEGATIVE) Urine Amphetamines Screen Neg (NEGATIVE) Urine Benzodiazepines Screen Neg (NEGATIVE) Urine Cocaine Screen Neg (NEGATIVE) Urine Cannabinoids Screen Neg (NEGATIVE) Hemoglobin A1c 8.6 % A1C (<5.7) Random Vancomycin Level 5.0 ug/mL (5-10) Free Thyroxine (T4) Calculated 1.09 ng/dL (0.89-1.76) Total Triiodothyronine (TT3) 1.00 ng/mL (0.60-1.81) Reticulocyte Count (auto) 1.68 % (0.5-1.5) Prothrombin Time 10.5 sec (9.3-11.8) Prothrombin Time INR 0.99 (0.9-1.15) Activated Partial Thromboplast Time 31.4 SEC (24.5-34.5) Ferritin 45.8 ng/mL (10-291) Total Bilirubin 0.2 mg/dL (0.2-1.0) Direct Bilirubin < 0.1 mg/dL (<0.3) Aspartate Amino Transferase (AST) 11 U/L (13-40) Alanine Aminotransferase (ALT) 12 U/L (7-40) Alkaline Phosphatase 83 U/L (46-116) B-Type Natriuretic Peptide 24.78 pg/mL (0-100) Total Protein 6.1 g/dL (5.7-8.2) Albumin 3.6 g/dL (3.2-4.8) Triglycerides Level 200 mg/dL (< 150) Cholesterol Level 220 mg/dL (< 200) LDL Cholesterol 151 mg/dL (< 100) HDL Cholesterol 44 mg/dL (40-59) Thyroid Stimulating Hormone (TSH) 13.68 uIU/mL (0.55-4.78) Beta HCG, Quantitative 0.7 mIU/mL (1.5-4.2) Test 09/20/24 17:05 Lactic Acid Level 1.0 mmol/L (0.4-2.0) Iron Level 13 ug/dL (50-170) Total Iron Binding Capacity 265 ug/dL (250-425) Percent Iron Saturation 4.9 % (15-50) Other Laboratory Tests 09/24/24 07:16 Brief Hx & Hospital Course: 33-year-old female With a history of chronic kidney disease, anemia, diabetes mellitus type 2 and hypothyroidism presents for evaluation of possible left lower extremity infected diabetic ulcer. Patient reports that Wednesday 3 days ago, she had fever and chills and on Wednesday she woke up and felt that her feet was red hot and pus was oozing from her callus which was incised by Dr. Dinh 2 weeks ago. She reports that she missed his appointment that day due to fever and also forgot to take her Lantus injection which she takes twice a day. She checked her blood sugar which was 170 at home. Due to the oozing of her foot ulcer in the left leg she came to the emergency. No other acute complaints. Past Medical History hypothyroidism, chronic kidney disease, anemia, diabetes mellitus Past Surgical History Toe amputation Family History Noncontributory Smoke: No ALCOHOL: none Drugs: None Lives: with Family Brief history of hospitalization: Patient came in with swollen left leg, oozing pus from her incised callus of 2 weeks ago. We consulted Podiatry who suggested the patient get an MRI done of the left foot without contrast. MRI showed no evidence of osteomyelitis, focal abscess but soft tissue swelling was present. Cellulitis in the plantar soft tissue structures were seen. We kept the patient's leg elevated started her on IV antibiotics ceftriaxone, clindamycin and vancomycin. Podiatry (Dr Dinh) was consulted and suggestedc that the patient follow up with him and be discharged on per orally antibiotics as patient had a follow up appointment with him outpatient already. we continue treating her cellulitis and gave [place] 5/325 mg for her pain q.4 PRN. On hospital patient may also noticed that the patient's hemoglobin was just 6.9 and we transfused 1 unit of packed red blood cells 09/21/2024 after which her hemoglobin levels improved to 8.4. Profile showed iron-deficiency anemia with low iron and ferritin levels and ferrous sulfate 325 mg per orally daily was began. For patient's type 2 diabetes mellitus with an HbA1c of 8.6, we began mild sliding scale insulin. patient's lab reports showed acute kidney injury on chronic kidney disease stage IIIB multifactorial in setting of lower extremity cellulitis and we did not Nephrology consult who suggested likely underlying diabetic nephropathy with CKD 3 status from 06/2024 and 2 continue antibiotics, replete iron and do kidney ultrasound. Patient was given furosemide twice and Nephrology also suggested starting losartan 50 mg, Jardiance 10 mg and amlodipine 10 mg daily starting from 09/23/2024. Patient also has subclinical hypothyroidism with a TSH of 13.68, T3-T4 levels normal. We started the patient on levothyroxine 25 mcg per orally daily and have counseled her to repeat a TSH in 6 weeks and follow up outpatient with an [facility]. Since she is obese with a BMI of 37.1 we have counseled her regarding the need of losing weight, healthy diet and need for exercise. Given patient also and vitamin deficiency seen in labs during hospitalization for which it has been repleted. Patient is cellulitis has markedly improved, she reports feeling better and she is stable for discharge. Patient has been counseled regarding outpatient Nephrology follow up, podiatry follow up And repeat TSH in 6 weeks then to follow up outpatient with [facility]. Patient has communicated understanding. She has no active complaints and has agreed to the discharge plan. Gen: 33-year-old female in mild distress Skin: Warm, dry, normal color and texture, no rash. HEENT: Normocephalic atraumatic, mucous membranes moist and pink. Neck: Cervical and supraclavicular nodes normal without enlargement, trachea is midline, thyroid gland is normal without masses. Pulmonary: Clear to auscultation and percussion bilaterally. Cardiac: Regular rate and rhythm. No murmur Abdomen: Soft, nontender, nondistended, bowel sounds present all 4 quadrants, no guarding, no rigidity, no organomegaly. Extremities: No cyanosis, clubbing, left foot diabetic ulcer, left leg warm, slightly swollen compared to the right leg, red Neuro: Cranial nerves II through XII grossly intact, normal affect and speech, no focal motor deficits. Operations or Procedures Left lower extremity venous duplex Clinical History: LEFT LOWER LEG SWELLING AND HOT Impression: No left femoropopliteal venous thrombosis. EXAM: XY CHEST XRAY 1 VIEW Indication: possible congestion IMPRESSION: No acute cardiopulmonary disease. ORDERING PHYSICIAN: LIZ DINH DPM PROCEDURE(s): LFTMR - MRI L FOOT WO CONTRAST REASON: r/o OM ORDER NUMBER(s): [id number], ACCESSION NUMBER(s): [id number] EXAM: MRI MRI L FOOT WO CONTRAST INDICATION: r/o OM TECHNIQUE: Multiplanar and multisequence MR imaging of the left ankle was performed in the absence of gadolinium contrast. COMPARISON: MRI MRI L FOOT WO CONTRAST on DOS: 04/08/22, CT CT L FOOT WO CONTRAST on DOS: 04/08/22, XY L ANKLE 3 VIEW on DOS: 04/07/22 FINDINGS: There are no destructive lesions of the bones of the foot. Trace joint effusion at the ankle joint. Subcutaneous edema is present. There is a skin ulcer along the lateral aspect of the foot No focal abscess. There is cellulitis in the plantar soft tissue structures. IMPRESSION: 1. No MR evidence of osteomyelitis. No focal abscess 2. Soft tissue swelling is present PROCEDURE(s): KIDUS - KIDNEY INDICATION: perri vs ckd, fena 2 IMPRESSION: Normal sonographic appearance of the kidneys. No hydronephrosis. Condition at Discharge: Stable Final Diagnosis/Problems List #Cellulitis of left leg #Iron deficiency anemia #Type 2 diabetes [id number] #infected left foot diabetic ulcer #Acute kidney injury on Chronic kidney disease IIIb multifactorial in the setting of lower extremity cellulitis #subclinical hypothyroidism # Obesity- BMI 37.1 # Vitamin-D deficiency Discharge Disposition: Home Discharge Instruct/Medications Diet: Consistent carbohydrate, Cardiac 2g Na,low cholest Activity: No Restrictions, As Tolerated Follow Up/Referral: Follow-up with discharge Clinic, PCP in 1 week Medications: as per EMR Scheduled Amlodipine Besylate (Norvasc Tablet), 10 MG PO DAILY Clindamycin Hcl (Clindamycin Hcl), 1 CAP PO BID Empagliflozin (Jardiance), 10 MG PO DAILY Ferrous Sulfate (Ferrous Sulfate), 325 MG PO BIDWM Insulin Glargine (Lantus), 18 UNIT SC BID, (Reported) Insulin Glargine (Lantus Solostar), 10 UNIT SC HS Insulin Regular (Human) (Humulin R U-500 Kwikpen), 500 UNIT SC TID Levothyroxine Sodium (Levothyroxine Sodium), 25 MCG PO QAM@0600 Levothyroxine Sodium (Levothyroxine Sodium), 25 MCG PO DAILY Losartan Potassium (Losartan Potassium), 50 MG PO DAILY Pantoprazole Sodium Sesquihydr (Pantoprazole Sodium), 40 MG PO DAILY@0600 Sodium Bicarbonate (Sodium Bicarbonate), 650 MG PO TID Durable Medical Equipment Blood Glucose Monitoring Suppl (D-Care Glucometer Kit/Glu W/Device), KIT XX DAILY, (DME) Insulin Pen Needle (Aum Pen Needle/[id number] 32G X 6 mm), MIS XX TID, (DME) Lancets (Advocate Lancets), UNITS XX TID, (DME) Discharge Statement: "Patient was advised to return to the ER or call 911 if any headaches, dizziness, shortness of breath, chest pain, abdominal pain, bleeding, fevers, or worsening of medical condition. Patient was counseled about treatment plan, medications, possible side effects, patientverbalized understanding. All questions were answered to the best of my ability. This discharge took greater then 30 minutes in planning, reviewing documentation, counseling the patient, and discussing with other team members." ASSESSMENT ASSESSMENT Assessment #cellulitis ROGELIO ANDRADE RESIDENT Sep 24, 2024 17:58
== END 2024-09-24 15:15 | disposition home or self-care (01) | DRG 603 ==
LOC: ER 16:04 → OVERFLOW 19:57 → WEST WING 09-21 12:37
PROVIDERS: ADMIT Internal Medicine; ATTEND Internal Medicine
PROC: 30233N1 Transfusion of Nonautologous Red Blood Cells into Peripheral Vein, Percutaneous Approach (ICD-10-PCS; principal; 2024-09-21)
DX: L03.116 Cellulitis of left lower limb (principal); N17.9 Acute kidney failure, unspecified; L97.529 Non-pressure chronic ulcer of other part of left foot with unspecified severity; E11.621 Type 2 diabetes mellitus with foot ulcer; D50.9 Iron deficiency anemia, unspecified; D63.1 Anemia in chronic kidney disease; E66.9 Obesity, unspecified; N18.32 Chronic kidney disease, stage 3b; E11.22 Type 2 diabetes mellitus with diabetic chronic kidney disease; E03.9 Hypothyroidism, unspecified; E55.9 Vitamin D deficiency, unspecified; Z68.37 Body mass index [BMI] 37.0-37.9, adult; Z82.49 Family history of ischemic heart disease and other diseases of the circulatory system; Z88.0 Allergy status to penicillin; Z83.3 Family history of diabetes mellitus; Z79.899 Other long term (current) drug therapy
CPT/HCPCS: 36415; 71045; 73718; 76775; 80048; 80061; 80076; 80202; 80307; 81001; 82306; 82570; 82728; 82962; 83036; 83540; 83550; 83605; 83735; 83880; 83970; 84100; 84156; 84300; 84439; 84443; 84480; 84702; 85014; 85018; 85025; 85045; 85610; 85730; 86850; 86900; 86901; 86920; 87040; 87077; 87186; 87205; 93971; 96365; G0378; J1815; J2185; J3490

== ENCOUNTER → 2024-12-11 | Outpatient (CLI) | payer MEDICARE, MEDICAID ==
[~2024-12-11] MED LIST changes: +AML5T PO; -APIX5TAB PO; -AUG875T PO; +BLOO1KIT60 XX; -CHOL1CAP47 PO; +CLIN1CAP70 PO; -DIPH25CA66 PO; +EMPA1TAB PO; +FER325T PO; +INSU1INJ15 SC; +INSUINJ37 SC; +LANC-336 XX; -LEV25T PO; +LEVO25TA6 PO; +LEVO50TA7 PO; -LORA10CA PO; +LOSA-534 PO; +PANT40T PO; +SODI650T PO; +[UNRECOGNIZED DRUG - CODE] XX
[2024-12-11 16:21] LABS: Albumin 3.5 g/dL (3.2-4.8); Alkaline Phosphatase 102 U/L (46-116); Anion Gap 9 (5-15); BUN/Creatinine Ratio 19.9 (10.0-20.0); Sodium 141 mmol/L (136-145); Total Protein 6.7 g/dL (5.7-8.2)
[2024-12-11 16:22] LABS: Hematocrit 24.5 % (36.0-46.0); Hemoglobin 8.1 g/dL (12.2-16.2); Mean Corpuscular Hemoglobin 25.3 pg (28.0-32.0); Mean Corpuscular Volume 76.3 fL (80.0-100.0); Nucleated Red Blood Cells % 0.0 %
[2024-12-11 16:27] LABS: Alanine Aminotransferase < 9 U/L (7-40); Bilirubin, Total 0.2 mg/dL (0.2-1.0); Blood Urea Nitrogen 58 mg/dL (9-23); Calcium 8.5 mg/dL (8.7-10.4); Carbon Dioxide 20 mmol/L (20-31); Chloride 112 mmol/L (98-107); Glucose 143 mg/dL (74-106); Potassium 5.1 mmol/L (3.5-5.1)
[2024-12-11 16:30] LABS: Urine Protein, UAD 2+ (Negative)
[2024-12-11 16:44] LABS: HDL Cholesterol 51 mg/dL (40-59)
[2024-12-11 16:45] LABS: Cholesterol 239 mg/dL (< 200); Triglycerides 160 mg/dL (< 150)
[2024-12-11 17:26] LABS: Microalb/Creat Ratio, Urine 3197.0
== END | disposition home or self-care (01) ==
LOC: LAB 14:32
PROVIDERS: ATTEND Internal Medicine
DX: E11.22 Type 2 diabetes mellitus with diabetic chronic kidney disease (principal); N18.4 Chronic kidney disease, stage 4 (severe); E11.29 Type 2 diabetes mellitus with other diabetic kidney complication; E11.69 Type 2 diabetes mellitus with other specified complication; E78.2 Mixed hyperlipidemia; E03.9 Hypothyroidism, unspecified; D50.9 Iron deficiency anemia, unspecified; Z00.01 Encounter for general adult medical examination with abnormal findings
CPT/HCPCS: 36415; 80053; 80061; 81001; 82043; 82570; 83036; 84439; 84443; 85025